=== PATIENT | male | born 1990 | race Caucasian/White ===

== ENCOUNTER 2017-02-25 14:13 | Emergency (ER) | payer SELFPAY ==
[2017-02-25] MEDS ORDERED: LORazepam 2 MG/ML SDV IVPUSH ONE (14:15)
[2017-02-25] MEDS ORDERED: Dextrose 5%-0.9% NaCl 1,000 ML IV SCH (14:15)
[2017-02-25] MEDS ORDERED: Thiamine 100 MG in Sodium Chloride 0.9% 100 ML IV ONE (14:17)
[2017-02-25 14:20] VITALS: BP 124/95
--- NOTE | 2017-02-25 14:20 | EDM.PDOCBH ---
ED HPI GENERAL MEDICAL PROBLEM - General Chief Complaint: Drug or Alcohol Abuse Stated Complaint: [facility] Time Seen by Provider: 02/25/17 14:15 Source of Information: Reports: Patient History Limitations: Reports: Other (very anxious. ) - History of Present Illness INITIAL COMMENTS - FREE TEXT/NARRATIVE: 27-year-old male presents to the ED per ambulance. It's unclear who called the embolus. Apparently he has intractable nausea and vomiting and this is the major reason that he called. By history he is going through alcohol withdrawal. Patient drinks alcohol any kind to excess on a whenever he it's available. He states he's been drinking [employer] rum quite heavily the last 3 days. Last drink was about 8 hours ago. He continues to have emesis and dry heaves without any blood. Stools tend to be loose. He denies any blood. Does have some upper epigastric abdominal pain. Denies any falls or recent injuries although I see blood over his right eyebrow. He can't explain how this occurred. Extremely apprehensive and anxious. He states he has an underlying anxiety disorder with panic disorder. He has not been using medications for this. Onset: Today, Gradual (Gradually worsening symptoms over the last 8 hours.) Onset Date: 02/25/17 Onset Time: 02:00 Duration: Hour(s): Location: Reports: Generalized (Feels shaky restless agitated and anxious. States he started vomiting 3 hours ago and can't quit.) Quality: Reports: Same as Previous Episode Severity: Severe Improves with: Reports: None Worsens with: Reports: None Context: Reports: Other (Feels restless agitated and very anxious since he has not had any alcohol for 8-12 hours.). Denies: Activity, Exercise, Lifting, Sick Contact, Trauma Associated Symptoms: Reports: Loss of Appetite, Nausea/Vomiting. 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 TECHNICIAN: Reports: Other (see below) (None.) - Related Data Allergies Allergy/AdvReac Type Severity Reaction Status Date / Time No Known Allergies Allergy Verified 02/25/17 14:20 Home Meds: Home Meds LORazepam [Ativan] 1 mg PO Q6H PRN #10 tablet 02/25/17 [Rx] Past Medical History - Past Health History Medical/Surgical History: Denies Medical/Surgical History Psychiatric History: Reports: Addiction Social & Family History - Tobacco Use Smoking Status *Q: Current Every Day Smoker Years of Tobacco use: 0 Packs/Tins Daily: 0 Second Hand Smoke Exposure: No - Alcohol Use Days Per Week of Alcohol Use: 7 Number of Drinks Per Day: 10 Total Drinks Per Week: 70 - Recreational Drug Use Recreational Drug Use: No Drug Use in Last 12 Months: Yes - Living Situation & Occupation Living situation: Reports: Single Occupation: Unemployed ED ROS GENERAL - Review of Systems Review Of Systems: See Below Constitutional: Reports: Chills, Malaise, Weakness, Decreased Appetite. Denies : Fever, Fatigue, Weight Loss HEENT: Reports: No Symptoms Respiratory: Reports: Shortness of Breath Cardiovascular: Reports: Chest Pain. Denies: Blood Pressure Problem, Claudication, Dyspnea on Exertion, Edema, Lightheadedness, Orthopnea Endocrine: Reports: Fatigue GI/Abdominal: Reports: Abdominal Pain, Diarrhea (Stools are always loose.), Nausea (Mostly in the epigastrium.), Vomiting (No hematemesis.). Denies: Constipation, Hematemesis : Reports: Frequency Musculoskeletal: Reports: No Symptoms Skin: Reports: No Symptoms Neurological: Reports: No Symptoms ED EXAM, BEHAVIORAL HEALTH - Physical Exam Exam: See Below Exam Limited By: No Limitations General Appearance: Alert, Anxious (Very anxious agitated.), Moderate Distress Eye Exam: Bilateral Eye: Nystagmus (Mild on lateral gaze bilaterally) Throat/Mouth: Other (Tongue is dry) Head: Atraumatic, Normocephalic ( and coated.) Neck: Normal Inspection, Supple, Non-Tender, Full Range of Motion. No: Lymphadenopathy (L), Lymphadenopathy (R) Respiratory/Chest: Lungs Clear, Normal Breath Sounds, Respiratory Distress ( Mild tachypnea.). No: Crackles, Rales, Rhonchi, Wheezing Cardiovascular: Normal Peripheral Pulses, No Murmur, No Rub (Tachycardic at rest 1 26/m), Tachycardia GI/Abdominal: Normal Bowel Sounds, Soft, Non-Tender, No Organomegaly, Tender ( Mild tenderness in the epigastrium.) Extremities: Normal Inspection, Normal Range of Motion, Non-Tender, No Pedal Edema Neurological: Alert, CN II-XII Intact, Oriented x 3, Inattentive. No: Dysarthria Psychiatric: Restless, Agitated. No: Disoriented, Inattentive, Non- Communicative, Poor Eye Contact, Uncooperative, Rastafarian Delusions, Suicidal Plan, Tangential Thoughts, Auditory Hallucinations, Visual Hallucinations, Grandiose Thoughts, Pressured Speech Skin Exam: Warm, Dry, Intact, Normal color, No rash, Other COURSE, BEHAVIORAL HEALTH COMP - Course Vital Signs: Last Vital Signs Temp 36.7 C 02/25/17 14:15 Pulse 102 H 02/25/17 14:15 Resp 20 02/25/17 14:15 BP 124/95 H 02/25/17 14:15 Pulse Ox 100 02/25/17 14:15 27-year-old male who is known to be an alcoholic presents to the ED essentially with acute alcohol withdrawal. He's been drinking [employer] rum quite heavily the last 3 days but lately has not had access to alcohol. Usually drinks anything that he can get his hands on. He also uses street drugs and particularly marijuana. He has a generalized anxiety disorder and panic disorder by history. He came to the hospital primarily because of intractable nausea and vomiting 3 hours. No hematemesis noted. Benign abdominal examination. He is alert and oriented. Does not appear to be intoxicated. Plan IV D5 normal saline at open. Ativan 2 mg IV as he is extremely restless and agitated. Reglan 7.5 mg IV to arrest vomiting. Routine labs to be done to include a serum lipase and coags. Blood alcohol and urine drug screen to be done as well. Orders, Labs, Meds: Active Orders 24 hr Category Date Time Status Dextrose 5%-0.9% NaCl [Dextrose 5%-Normal Saline] 1,000 Med 02/25/17 14:15 Active ml IV ASDIRECTED Medication Orders Dextrose/Sodium Chloride (Dextrose 5%-Normal Saline) 1,000 mls @ 500 mls/hr IV ASDIRECTED EFFIE Last Admin: 02/25/17 14:32 Dose: 500 mls/hr Laboratory Tests 02/25/17 02/25/17 02/25/17 Range/Units 14:30 14:30 14:30 WBC 4.78 (4.23-9.07) K/mm3 RBC 4.33 L (4.63-6.08) M/mm3 Hgb 14.1 (13.7-17.5) gm/L Hct 42.6 (40.1-51.0) % MCV 98.4 H (79.0-92.2) fl MCH 32.6 H (25.7-32.2) pg MCHC 33.1 (32.2-35.5) g/dl RDW Std Deviation 52.9 H (35.1-43.9) fL Plt Count 275 (163-337) K/mm3 MPV 9.6 (9.4-12.3) fl Neutrophils % (Manual) 47 (40-60) % Band Neutrophils % 0 (0-10) % Lymphocytes % (Manual) 42 H (20-40) % Atypical Lymphs % 0 % Monocytes % (Manual) 7 (2-10) % Eosinophils % (Manual) 0 L (0.8-7.0) % Basophils % (Manual) 4 H (0.2-1.2) Platelet Estimate Adequate Plt Morphology Comment Normal RBC Morph Comment Normal PT 10.3 (8.0-13.0) SECONDS INR 0.95 APTT 29 (22-36) SECONDS Sodium 144 (136-145) mEq/L Potassium 3.5 (3.5-5.1) mEq/L Chloride 105 (98-107) mEq/L Carbon Dioxide 28 (21-32) mEq/L Anion Gap 14.5 (5-15) BUN 6 L (7-18) mg/dL Creatinine 0.7 (0.7-1.3) mg/dL Est Cr Clr Drug Dosing TNP Estimated GFR (MDRD) > 60 (>60) mL/min BUN/Creatinine Ratio 8.6 L (14-18) Glucose 93 (74-106) mg/dL Calcium 8.6 (8.5-10.1) mg/dL Magnesium 1.8 (1.8-2.4) mg/dl Total Bilirubin 0.4 (0.2-1.0) mg/dL AST 88 H (15-37) U/L ALT 105 H (16-63) U/L Alkaline Phosphatase 128 H (46-116) U/L C-Reactive Protein < 0.2 (<1.0) mg/dL Total Protein 7.4 (6.4-8.2) g/dl Albumin 4.0 (3.4-5.0) g/dl Globulin 3.4 gm/dL Albumin/Globulin Ratio 1.2 (1-2) Lipase 87 (73-393) U/L Urine Opiates Screen (NEGATIVE) Ur Buprenorphine Scrn (NEGATIVE) Ur Oxycodone Screen (NEGATIVE) Urine Methadone Screen (NEGATIVE) Ur Propoxyphene Screen (NEGATIVE) Ur Barbiturates Screen (NEGATIVE) Ur Tricyclics Screen (NEGATIVE) Ur Phencyclidine Scrn (NEGATIVE) Ur Amphetamine Screen (NEGATIVE) U Methamphetamines Scrn (NEGATIVE) U Benzodiazepines Scrn (NEGATIVE) U Cocaine Metab Screen (NEGATIVE) U Marijuana (THC) Screen (NEGATIVE) Ethyl Alcohol 0.25 (0.00) gm% 02/25/17 Range/Units 18:50 WBC (4.23-9.07) K/mm3 RBC (4.63-6.08) M/mm3 Hgb (13.7-17.5) gm/L Hct (40.1-51.0) % MCV (79.0-92.2) fl MCH (25.7-32.2) pg MCHC (32.2-35.5) g/dl RDW Std Deviation (35.1-43.9) fL Plt Count (163-337) K/mm3 MPV (9.4-12.3) fl Neutrophils % (Manual) (40-60) % Band Neutrophils % (0-10) % Lymphocytes % (Manual) (20-40) % Atypical Lymphs % % Monocytes % (Manual) (2-10) % Eosinophils % (Manual) (0.8-7.0) % Basophils % (Manual) (0.2-1.2) Platelet Estimate Plt Morphology Comment RBC Morph Comment PT (8.0-13.0) SECONDS INR APTT (22-36) SECONDS Sodium (136-145) mEq/L Potassium (3.5-5.1) mEq/L Chloride (98-107) mEq/L Carbon Dioxide (21-32) mEq/L Anion Gap (5-15) BUN (7-18) mg/dL Creatinine (0.7-1.3) mg/dL Est Cr Clr Drug Dosing Estimated GFR (MDRD) (>60) mL/min BUN/Creatinine Ratio (14-18) Glucose (74-106) mg/dL Calcium (8.5-10.1) mg/dL Magnesium (1.8-2.4) mg/dl Total Bilirubin (0.2-1.0) mg/dL AST (15-37) U/L ALT (16-63) U/L Alkaline Phosphatase (46-116) U/L C-Reactive Protein (<1.0) mg/dL Total Protein (6.4-8.2) g/dl Albumin (3.4-5.0) g/dl Globulin gm/dL Albumin/Globulin Ratio (1-2) Lipase (73-393) U/L Urine Opiates Screen Negative (NEGATIVE) Ur Buprenorphine Scrn Negative (NEGATIVE) Ur Oxycodone Screen Negative (NEGATIVE) Urine Methadone Screen Negative (NEGATIVE) Ur Propoxyphene Screen Negative (NEGATIVE) Ur Barbiturates Screen Negative (NEGATIVE) Ur Tricyclics Screen Negative (NEGATIVE) Ur Phencyclidine Scrn Negative (NEGATIVE) Ur Amphetamine Screen Negative (NEGATIVE) U Methamphetamines Scrn Negative (NEGATIVE) U Benzodiazepines Scrn Presumptive positive H (NEGATIVE) U Cocaine Metab Screen Negative (NEGATIVE) U Marijuana (THC) Screen Presumptive positive H (NEGATIVE) Ethyl Alcohol (0.00) gm% Medications Generic Name Dose Route Start Last Admin Trade Name Freq PRN Reason Stop Dose Admin Dextrose/Sodium Chloride 1,000 mls @ 500 mls/hr 02/25/17 14:15 02/25/17 14:32 Dextrose 5%-Normal Saline IV 500 mls/hr ASDIRECTED EFFIE Administration Discontinued Medications Generic Name Dose Route Start Last Admin Trade Name Freq PRN Reason Stop Dose Admin Thiamine HCl 100 mg/ Sodium 101 mls @ 202 mls/hr 02/25/17 14:17 02/25/17 14: 48 Chloride IV 02/25/17 14:18 202 mls/hr ONETIME ONE Administration Lorazepam 2 mg 02/25/17 14:15 02/25/17 14:33 Ativan IVPUSH 02/25/17 14:16 2 mg ONETIME ONE Administration Lorazepam 2 mg 02/25/17 18:59 Ativan PO 02/25/17 19:00 ONETIME ONE Metoclopramide HCl 7.5 mg 02/25/17 14:24 02/25/17 14:47 Reglan IVPUSH 02/25/17 14:25 7.5 mg ONETIME ONE Administration Re-Assessment/Re-Exam: White count is 4.78 with 47% neutrophils and no bands. Hemoglobin is 14.1. Hematocrit is 42.6. Platelets 275,000. His MCV is mildly elevated at 98.4. PT is 10.3 with a normal INR of 0.95. PTT is 29. Sodium 144 potassium is 3.5. Chloride 105 bicarbonate is 28. And a gap is 14.5 BUN is 6. Glucose is 93 calcium 8.6. Magnesium is 1.8. Bilirubin 0.4. AST elevated at 88. ALT elevated at 105. Alk phosphatase 128. C-reactive protein is less than 0.2. Lipase normal at 87. Blood alcohol is currently 0.25 g percent. Patient has been asleep basically since he received IV medications. Labs certainly indicate is not going through withdrawal at 0.25 g percent. He was suffering an acute anxiety attack. Re-Assessment/Re-Exam Date: 02/25/17 (18:20 patient remains fast asleep. He has completed a liter of IV fluids. Plan will be to discharge him home once she awakens and recovers from IV meds.) Re-Assessment/Re-Exam Time: 18:55 (Patient awoke and feels quite well at this time. We'll give him by T to make sure that his stomach can handle food. Inés as well. Will be to discharge him home on Ativan 1 mg strength 2 tablets from the ED to be use one every 4-6 hours. 4 relieve acute anxiety reaction or alcohol withdrawal. Also given a prescription for 10 further 1 mg tablets to be used on a when necessary basis for acute anxiety reaction. Advised him to follow-up with personal care physician to see about starting medication such as citalopram 40 mg once daily which may bring his anxiety under control long-term and is essentially safe to use even if he continues to abuse alcohol.) Medical Clearance: 02/25/17 19:19 urine drug screen was positive for marijuana and presumptive benzodiazepines which we gave him. He'll be discharged to home Departure - Departure Time of Disposition: 19:21 Disposition: Home, Self-Care 01 Condition: Fair Clinical Impression: Generalized anxiety disorder with panic attacks, Alcohol abuse - Discharge Information Prescriptions: LORazepam [Ativan] 1 mg PO Q6H PRN #10 tablet PRN Reason: Panic attack Instructions: Alcohol Intoxication, [id number], Panic Attacks Additional Instructions: Evaluation in the emergency room tonight in regards to acute onset of severe anxiety attack. You had expressed some concerns that you might be withdrawing from alcohol blood sugar blood alcohol content is still 0.25 g percent 3 times the legal limit. You're treated with intravenous medications to stop nausea or vomiting and Ativan 2 mg to stop acute anxiety reaction. He received a liter of IV fluids to provide rehydration while in the department. Strongly suggest trying to abstain from alcohol use. He was sent home with 2 tablets of Ativan 1 mg strength from the department that can be used 1 every 4-6 hours as needed for anxiety relief. A prescription for 10 more tablets was also written for which you can fill tomorrow it in the pharmacy between the hours of 1 and 3 as they will be open on the holiday time. Otherwise you'll have to wait until Sunday to fill them. Suggest follow-up with your personal physician to discuss need for daily medication such as citalopram 40 mg once daily to try and bring anxiety symptoms under control long-term. This medication is safe to take long- term and is non-addicting. - My Orders Last 24 Hours: My Active Orders 02/25/17 14:15 Dextrose 5%-0.9% NaCl [Dextrose 5%-Normal Saline] 1,000 ml IV ASDIRECTED - Assessment/Plan Last 24 Hours: My Active Orders 02/25/17 14:15 Dextrose 5%-0.9% NaCl [Dextrose 5%-Normal Saline] 1,000 ml IV ASDIRECTED
[2017-02-25] MEDS ORDERED: Metoclopramide 10 MG/2 ML SDV IVPUSH ONE (14:24)
[2017-02-25] MEDS ORDERED: LORazepam 1 MG Tab PO ONE (18:59)
== END 2017-02-25 19:27 | disposition home or self-care (01) ==
LOC: JD.ED 14:13
DX: F41.0 Panic disorder [episodic paroxysmal anxiety] (principal); F10.129 Alcohol abuse with intoxication, unspecified; F17.200 Nicotine dependence, unspecified, uncomplicated; Y90.1 Blood alcohol level of 20-39 mg/100 ml
CPT/HCPCS: 36415; 80053; 80306; 83690; 83735; 85025; 85610; 85730; 86140; 96361; 96365; 96375; 99285; A9270; G0480; J2060; J2765; J3411; J7030; J7042; 99284

== ENCOUNTER 2017-03-31 21:27 | Emergency (ER) | payer MEDICAID ==
--- NOTE | 2017-03-31 22:01 | EDM.PDOCBH ---
ED HPI GENERAL MEDICAL PROBLEM - General Chief Complaint: Behavioral/Psych Stated Complaint: [facility] Time Seen by Provider: 03/31/17 21:45 Source of Information: Reports: Patient History Limitations: Reports: No Limitations - History of Present Illness INITIAL COMMENTS - FREE TEXT/NARRATIVE: This is a 27-year-old male. He was picked up by the police because he was outside walking. Apparently he is homeless and spends his time in the trees behind [place]. Tonight however he was walking on the road and since it is very cold outside the police picked him up and brought him to the ER. I understand that he does not want to be seen or evaluated by anyone since it will cost him money and he doesn't have any money. I spoke to him personally and he says his mother is going to come and get him so he have a warm place to stay but he does not want to be seen by anyone or have any blood drawn by anyone or evaluated by anyone. I asked him several times about this and he insists he doesn't need anything. I did offer him a sandwich and a drink that would be free but he does not want it. - Related Data Allergies Allergy/AdvReac Type Severity Reaction Status Date / Time No Known Allergies Allergy Verified 02/25/17 14:20 Home Meds: Home Meds LORazepam [Ativan] 1 mg PO Q6H PRN #10 tablet 02/25/17 [Rx] Past Medical History - Past Health History Medical/Surgical History: Denies Medical/Surgical History Psychiatric History: Reports: Addiction Social & Family History - Tobacco Use Smoking Status *Q: Current Every Day Smoker Years of Tobacco use: 0 Packs/Tins Daily: 0 Second Hand Smoke Exposure: No - Alcohol Use Days Per Week of Alcohol Use: 7 Number of Drinks Per Day: 10 Total Drinks Per Week: 70 - Recreational Drug Use Recreational Drug Use: No Drug Use in Last 12 Months: Yes - Living Situation & Occupation Living situation: Reports: Single Occupation: Unemployed ED ROS GENERAL - Review of Systems Review Of Systems: Unable To Obtain (He does not want to answer any questions. He is waiting for his mother to come and pick him up so he can have a warm place to sleep tonight.) ED EXAM, BEHAVIORAL HEALTH - Physical Exam Exam: Not Obtained Text/Narrative:: Condition refused to having a physical exam done. He has no significant complaints and does not want to be seen. COURSE, BEHAVIORAL HEALTH COMP - Course Medical Clearance: 03/31/17 22:01 Patient is alert and talking does not appear to be in distress. He does not want to be seen does not want have any evaluation or blood work. He wants his mother to come and pick him up so he can sleep in a warm place tonight. We have contacted the mother and she will be here to get him. 03/31/17 22:48 Patient is been fine without any complaints. His mother came and picked him up and took him from the ER. Departure - Departure Time of Disposition: 22:48 Disposition: Home, Self-Care 01 Condition: Fair Clinical Impression: Exposure to environmental cold Qualifiers: Encounter type: initial encounter Qualified Code(s): T69.9XXA - Effect of reduced temperature, unspecified, initial encounter - Discharge Information Referrals: PCP,None [Primary Care Provider] - Forms: ED Department Discharge Additional Instructions: If in the future you have any problems return to the ER for evaluation, go home with your mother so you will have a warm place to sleep and please stay out of the cold over the next few days.
== END 2017-03-31 22:40 | disposition home or self-care (01) ==
LOC: JD.ED 21:27
DX: Z53.8 Procedure and treatment not carried out for other reasons (principal); T69.9XXA Effect of reduced temperature, unspecified, initial encounter

== ENCOUNTER 2018-06-14 12:04 | Emergency (ER) | payer MEDICAID ==
[2018-06-14] MEDS ORDERED: LORazepam 2 MG/ML SDV IM ONE (12:35)
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
[2018-06-14 13:01] VITALS: BP 129/88
--- NOTE | 2018-06-14 13:28 | CT ---
Head CT Technique: Multiple axial sections through the brain were obtained. Intravenous contrast was not utilized. Comparison: No prior intracranial imaging is available. Findings: Ventricles along with basal cisterns and sulci over the convexities are within normal limits for the patient's age. No abnormal parenchymal densities are seen. No evidence of intracranial hemorrhage. No midline shift or mass effect is seen. Bone window settings were reviewed which shows mild mucosal thickening within the ethmoid and frontal sinuses as well as right maxillary sinus. No acute calvarial abnormality is seen. Impression: 1. Minimal sinus findings which are felt to be incidental. 2. Nothing acute is seen on noncontrast head CT exam. No acute skull fracture is seen. Diagnostic code #1
[2018-06-14 13:31] LABS: ACETAMINOPHEN 0 ug/mL (10-30)
[2018-06-14 14:41] LABS: C. TRACHOMATIS BY PCR NOT DETECTED; N. GONORRHOEAE BY PCR NOT DETECTED
== END 2018-06-14 15:40 | disposition home or self-care (01) ==
LOC: JD.ED 12:04
DX: S09.90XA Unspecified injury of head, initial encounter (principal); F41.0 Panic disorder [episodic paroxysmal anxiety]; S40.022A Contusion of left upper arm, initial encounter; S40.021A Contusion of right upper arm, initial encounter; F17.210 Nicotine dependence, cigarettes, uncomplicated; W18.00XA Striking against unspecified object with subsequent fall, initial encounter; V00.131A Fall from skateboard, initial encounter; Y93.9 Activity, unspecified
CPT/HCPCS: 36415; 70450; 80053; 80306; 81001; 85025; 87491; 87591; 96372; 99284; G0480; J2060; 99283

== ENCOUNTER 2018-10-20 15:46 | Emergency (ER) | payer SELFPAY ==
[2018-10-20 16:31] VITALS: BP 135/92
[2018-10-20] MEDS ORDERED: Thiamine 100 MG Tab PO ONE (17:28)
[2018-10-20] MEDS ORDERED: Sodium Chloride 0.9% 1,000 ML IV ONE (17:28)
[2018-10-20] MEDS ORDERED: Sodium Chloride 0.9% 10 ML Syringe FLUSH PRN (17:28)
[2018-10-20] MEDS ORDERED: Ondansetron 4 MG/2 ML SDV IVPUSH ONE (17:28)
[2018-10-20] MEDS ORDERED: LORazepam 2 MG/ML SDV IVPUSH ONE (17:34)
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
== END 2018-10-20 19:48 | disposition other institution (70) ==
LOC: JD.ED 15:46
DX: F10.20 Alcohol dependence, uncomplicated (principal); Y90.0 Blood alcohol level of less than 20 mg/100 ml; F17.210 Nicotine dependence, cigarettes, uncomplicated
CPT/HCPCS: 36415; 96361; 96374; 96375; 99284; A9270; G0480; J2060; J2405; J7040

== ENCOUNTER 2018-11-12 11:59 | Emergency (ER) | payer SELFPAY ==
[2018-11-12 12:05] VITALS: BP 115/71; PULSE 84
[2018-11-12] MEDS ORDERED: Ondansetron 4 MG/2 ML SDV IVPUSH ONE (13:06)
[2018-11-12] MEDS ORDERED: Sodium Chloride 0.9% 1,000 ML IV ONE (13:06)
[2018-11-12] MEDS ORDERED: LORazepam 2 MG/ML SDV IVPUSH STA (13:06)
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
--- NOTE | 2018-11-12 14:09 | CR ---
Chest: Two views of the chest were obtained. Comparison: Prior chest x-ray of 10/09/18. Heart size and mediastinum are within normal limits. Lungs are clear. Bony structures are unremarkable. Impression: 1. No acute intrathoracic process is seen. Diagnostic code #1
== END 2018-11-12 15:18 | disposition home or self-care (01) ==
LOC: JD.ED 11:59
DX: F10.20 Alcohol dependence, uncomplicated (principal); Y90.0 Blood alcohol level of less than 20 mg/100 ml; F50.81 Binge eating disorder; F41.9 Anxiety disorder, unspecified; F17.210 Nicotine dependence, cigarettes, uncomplicated; Z79.899 Other long term (current) drug therapy
CPT/HCPCS: 36415; 71046; 80053; 80306; 80320; 83690; 83735; 85025; 96361; 96374; 96375; 99284; J2060; J2405; J7040; G0480

== ENCOUNTER 2018-11-17 10:32 | Emergency (ER) | payer SELFPAY ==
[2018-11-17 10:41] VITALS: BP 125/83; PULSE 113
[2018-11-17] MEDS ORDERED: Sodium Chloride 0.9% 10 ML Syringe FLUSH PRN (10:51)
[2018-11-17] MEDS ORDERED: Ondansetron 4 MG/2 ML SDV IVPUSH ONE (10:51)
[2018-11-17] MEDS ORDERED: LORazepam 2 MG/ML SDV IVPUSH ONE (10:53)
[2018-11-17] MEDS ORDERED: Sodium Chloride 0.9% 1,000 ML IV SCH (11:00)
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
== END 2018-11-17 14:15 | disposition home or self-care (01) ==
LOC: JD.ED 10:32
DX: F10.230 Alcohol dependence with withdrawal, uncomplicated (principal); Y90.0 Blood alcohol level of less than 20 mg/100 ml; F50.81 Binge eating disorder; F41.9 Anxiety disorder, unspecified; F17.210 Nicotine dependence, cigarettes, uncomplicated; Z79.899 Other long term (current) drug therapy
CPT/HCPCS: 36415; 80053; 80306; 80320; 83735; 85025; 87449; 96361; 96374; 96375; 99285; J2060; J2405; J7040; 99284; G0433; G0480

== ENCOUNTER 2018-11-19 18:26 | Emergency (ER) | payer MEDICAID ==
[2018-11-19 18:35] VITALS: BP 125/82; PULSE 58
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
[2018-11-19] MEDS ORDERED: Ondansetron 4 MG Tab.DIS PO ONE (20:07)
[2018-11-19] MEDS ORDERED: LORazepam 1 MG Tab PO ONE (20:07)
== END 2018-11-19 21:13 | disposition home or self-care (01) ==
LOC: JD.ED 18:26
DX: F10.239 Alcohol dependence with withdrawal, unspecified (principal); F41.9 Anxiety disorder, unspecified; Z79.899 Other long term (current) drug therapy
CPT/HCPCS: 99285; A9270; 99283

== ENCOUNTER 2018-12-12 12:20 | Emergency (ER) | payer SELFPAY ==
[2018-12-12] MEDS ORDERED: LORazepam 2 MG/ML SDV IVPUSH ONE (12:51)
[2018-12-12] MEDS ORDERED: Thiamine 200 MG/2 ML MDV IVPUSH ONE (12:53)
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
[2018-12-12] MEDS ORDERED: Metoclopramide 10 MG/2 ML SDV IVPUSH ONE (12:57)
[2018-12-12] MEDS ORDERED: Dextrose 5%-0.9% NaCl 1,000 ML IV SCH (13:00)
[2018-12-12 14:44] VITALS: BP 99/60; PULSE 100
== END 2018-12-12 14:40 | disposition home or self-care (01) ==
LOC: JD.ED 12:20
DX: F41.0 Panic disorder [episodic paroxysmal anxiety] (principal); F10.10 Alcohol abuse, uncomplicated; F32.9 Major depressive disorder, single episode, unspecified; Z79.899 Other long term (current) drug therapy
CPT/HCPCS: 36415; 80053; 80320; 82553; 83690; 83735; 85025; 85610; 93005; 96361; 96374; 96375; 99285; J2060; J2765; J3411; J7042; 93010; 99284; G0480

== ENCOUNTER 2018-12-18 11:25 | Emergency (ER) | payer SELFPAY ==
[2018-12-18 11:32] VITALS: PULSE 93
[2018-12-18] MEDS ORDERED: LORazepam 1 MG Tab PO ONE (11:48)
[2018-12-18] MEDS ORDERED: Ondansetron 4 MG Tab.DIS PO ONE (11:49)
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
[2018-12-18] MEDS ORDERED: Acetaminophen 325 MG Tab PO ONE (12:17)
[2018-12-18 12:51] VITALS: BP 125/75
== END 2018-12-18 12:23 | disposition home or self-care (01) ==
LOC: JD.ED 11:25
DX: F41.9 Anxiety disorder, unspecified (principal); R11.2 Nausea with vomiting, unspecified; F17.210 Nicotine dependence, cigarettes, uncomplicated
CPT/HCPCS: 99283; A9270

== ENCOUNTER 2018-12-23 05:38 | Emergency (ER) | payer SELFPAY ==
[2018-12-23 05:43] VITALS: BP 140/94; PULSE 94
[2018-12-23] MEDS: Ondansetron 4 MG/2 ML SDV IVPUSH ONE (08:10)
[2018-12-23] MEDS: Dextrose 5%-Lactated Ringers 1,000 ML IV SCH ×2 (08:10→10:23)
[2018-12-23] MEDS: LORazepam 2 MG/ML SDV IVPUSH ONE (08:12)
[2018-12-23] MEDS: Sodium Chloride 0.9% 10 ML Syringe FLUSH PRN (08:15)
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
[2018-12-23] MEDS: LORazepam 1 MG Tab PO ONE (11:54)
== END 2018-12-23 12:00 | disposition home or self-care (01) ==
LOC: JD.ED 05:38
DX: F10.229 Alcohol dependence with intoxication, unspecified (principal); F41.9 Anxiety disorder, unspecified; F17.210 Nicotine dependence, cigarettes, uncomplicated; Y90.6 Blood alcohol level of 120-199 mg/100 ml
CPT/HCPCS: 36415; 80053; 80320; 83690; 85025; 96361; 96374; 96375; 99285; A9270; J2060; J2405; J7042; 99283; G0480

== ENCOUNTER 2018-12-29 13:03 | Emergency (ER) | payer SELFPAY ==
[2018-12-29 13:17] VITALS: BP 120/80; PULSE 92
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
== END 2018-12-29 15:00 | disposition home or self-care (01) ==
LOC: JD.ED 13:03
DX: R00.2 Palpitations (principal); F10.10 Alcohol abuse, uncomplicated; F14.10 Cocaine abuse, uncomplicated; F17.210 Nicotine dependence, cigarettes, uncomplicated; F41.9 Anxiety disorder, unspecified; Z79.899 Other long term (current) drug therapy
CPT/HCPCS: 93005; 93010; 99283; 99284-25

== ENCOUNTER 2019-01-02 18:25 | Emergency (ER) | payer SELFPAY ==
[2019-01-02 18:43] VITALS: BP 135/72; PULSE 90
[2019-01-02] MEDS ORDERED: Ondansetron 4 MG Tab.DIS PO ONE (19:23)
[2019-01-02] MEDS ORDERED: LORazepam 1 MG Tab PO ONE (19:23)
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
== END 2019-01-02 20:29 | disposition home or self-care (01) ==
LOC: JD.ED 18:25
DX: F10.230 Alcohol dependence with withdrawal, uncomplicated (principal); F41.9 Anxiety disorder, unspecified; F17.210 Nicotine dependence, cigarettes, uncomplicated; Z79.899 Other long term (current) drug therapy
CPT/HCPCS: 99284; A9270-GY

== ENCOUNTER 2019-08-08 00:03 | Emergency (ER) | payer MEDICAID, OTHER ==
[2019-08-08 00:12] VITALS: BP 121/75; PULSE 102
[2019-08-08] MEDS ORDERED: Sodium Chloride 0.9% 1,000 ML IV ONE (00:28)
[2019-08-08 01:02] LABS: ACETAMINOPHEN 0 ug/mL (10-30)
[2019-08-08] MEDS ORDERED: LORazepam 2 MG/ML SDV IVPUSH ONE (01:47)
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
== END 2019-08-08 03:20 ==
LOC: JD.ED 00:03
DX: F10.129 Alcohol abuse with intoxication, unspecified (principal); Y90.0 Blood alcohol level of less than 20 mg/100 ml; F41.9 Anxiety disorder, unspecified; F17.210 Nicotine dependence, cigarettes, uncomplicated; Z79.899 Other long term (current) drug therapy
CPT/HCPCS: 36415; 80053; 80306; 80307; 81001; 85007; 85027; 93005; 96361; 96374; 99285; J2060; J7030; 93010; 99284

== ENCOUNTER 2019-08-18 07:36 | Emergency (ER) | payer MEDICAID ==
[2019-08-18 08:14] VITALS: BP 128/87; PULSE 104
[2019-08-18] MEDS ORDERED: Thiamine 200 MG/2 ML MDV IVPUSH ONE (08:26)
[2019-08-18] MEDS ORDERED: Metoclopramide 10 MG/2 ML SDV IVPUSH ONE (08:28)
[2019-08-18] MEDS ORDERED: LORazepam 2 MG/ML SDV IVPUSH ONE (08:28)
[2019-08-18] MEDS ORDERED: Dextrose 5%-0.9% NaCl 1,000 ML IV SCH (08:30)
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
== END 2019-08-18 12:44 ==
LOC: JD.ED 07:36
DX: F10.230 Alcohol dependence with withdrawal, uncomplicated (principal); F41.1 Generalized anxiety disorder; R56.9 Unspecified convulsions; Z79.899 Other long term (current) drug therapy
CPT/HCPCS: 36415; 80053; 80306; 80307; 81001; 83735; 85025; 86140; 96374; 96375; 99285; J2060; J2765; J3411; J7042; 99284

== ENCOUNTER 2019-08-23 18:37 | Emergency (ER) | payer MEDICAID ==
[2019-08-23 19:20] VITALS: BP 124/72; PULSE 90
[2019-08-23] MEDS ORDERED: Ondansetron 4 MG/2 ML SDV IVPUSH ONE (19:44)
[2019-08-23] MEDS ORDERED: Lactated Ringers 1,000 ML IV SCH (19:45)
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
[2019-08-23] MEDS ORDERED: LORazepam 1 MG Tab PO ONE (22:39)
== END 2019-08-23 22:46 | disposition home or self-care (01) ==
LOC: JD.ED 18:37
DX: F10.120 Alcohol abuse with intoxication, uncomplicated (principal); F50.81 Binge eating disorder; F41.9 Anxiety disorder, unspecified; F17.210 Nicotine dependence, cigarettes, uncomplicated; Z79.899 Other long term (current) drug therapy
CPT/HCPCS: 36415; 80053; 80306; 80307; 81001; 83690; 85025; 96361; 96374; 99284; A9270; J2405; J7120

== ENCOUNTER 2019-08-24 16:16 | Emergency (ER) | payer MEDICAID ==
[2019-08-24 16:33] VITALS: BP 135/75
[2019-08-24] MEDS ORDERED: Metoclopramide 10 MG/2 ML SDV IVPUSH ONE (17:01)
[2019-08-24] MEDS ORDERED: LORazepam 2 MG/ML SDV IV PRN (17:02)
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
[2019-08-24] MEDS ORDERED: Dextrose 5%-Lactated Ringers 1,000 ML IV SCH (17:15)
[2019-08-24 18:26] VITALS: PULSE 79
== END 2019-08-24 18:52 | disposition home or self-care (01) ==
LOC: JD.ED 16:16
DX: F10.231 Alcohol dependence with withdrawal delirium (principal); F41.9 Anxiety disorder, unspecified; Z79.899 Other long term (current) drug therapy
CPT/HCPCS: 36415; 80053; 80307; 83690; 83735; 96361; 96374; 96375; 99284; J2060; J2765; J7121; 99283

== ENCOUNTER 2019-09-25 16:31 | Emergency (ER) | payer MEDICAID ==
[2019-09-25 17:15] VITALS: PULSE 82
[2019-09-25] MEDS ORDERED: Ondansetron 4 MG Tab.DIS PO ONE (17:33)
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
[2019-09-25] MEDS ORDERED: Acetaminophen 325 MG Tab PO ONE (18:13)
[2019-09-25 19:14] VITALS: BP 120/68
== END 2019-09-25 18:38 | disposition home or self-care (01) ==
LOC: JD.ED 16:31
DX: F10.230 Alcohol dependence with withdrawal, uncomplicated (principal); F17.210 Nicotine dependence, cigarettes, uncomplicated; Y90.8 Blood alcohol level of 240 mg/100 ml or more
CPT/HCPCS: 36415; 80053; 80306; 80307; 81001; 83735; 99284; A9270; 99283

== ENCOUNTER 2019-10-20 17:22 | Emergency (ER) | payer MEDICAID ==
[2019-10-20 17:38] VITALS: BP 122/66; PULSE 82
[2019-10-20] MEDS ORDERED: Ondansetron 4 MG Tab.DIS PO ONE (17:45)
[2019-10-20] MEDS ORDERED: LORazepam 0.5 MG Tab PO ONE (17:45)
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
== END 2019-10-20 19:08 | disposition home or self-care (01) ==
LOC: JD.ED 17:22
DX: F10.10 Alcohol abuse, uncomplicated (principal); F17.210 Nicotine dependence, cigarettes, uncomplicated
CPT/HCPCS: 36415; 80307; 99284; A9270; 99283

== ENCOUNTER 2019-10-27 13:38 | Emergency (ER) | payer MEDICAID ==
[2019-10-27] MEDS ORDERED: LORazepam 1 MG Tab PO ONE (13:56)
[2019-10-27] MEDS ORDERED: Ondansetron 4 MG Tab.DIS PO ONE (13:56)
[2019-10-27] MEDS ORDERED: Acetaminophen 325 MG Tab PO ONE (14:14)
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
[2019-10-27 15:39] VITALS: BP 113/77; PULSE 62
== END 2019-10-27 15:30 | disposition home or self-care (01) ==
LOC: JD.ED 13:38
DX: F41.9 Anxiety disorder, unspecified (principal); F10.10 Alcohol abuse, uncomplicated; F17.210 Nicotine dependence, cigarettes, uncomplicated
CPT/HCPCS: 99284; A9270; 99283

== ENCOUNTER 2019-10-31 11:21 | Emergency (ER) | payer MEDICAID ==
[2019-10-31] MEDS ORDERED: LORazepam 1 MG Tab PO ONE (12:24)
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
[2019-10-31 14:34] VITALS: BP 115/71; PULSE 62
== END 2019-10-31 14:22 | disposition home or self-care (01) ==
LOC: JD.ED 11:21
DX: F41.9 Anxiety disorder, unspecified (principal); F10.10 Alcohol abuse, uncomplicated; F17.210 Nicotine dependence, cigarettes, uncomplicated
CPT/HCPCS: 99283; A9270

== ENCOUNTER 2019-11-08 11:53 | Emergency (ER) | payer MEDICAID ==
[2019-11-08] MEDS ORDERED: Sodium Chloride 0.9% 1,000 ML IV ONE (12:01)
[2019-11-08] MEDS ORDERED: Metoclopramide 10 MG/2 ML SDV IVPUSH ONE (12:01)
[2019-11-08] MEDS ORDERED: Folic Acid 1 MG Tab PO ONE (12:01)
[2019-11-08] MEDS ORDERED: Thiamine 100 MG Tab PO ONE (12:01)
[2019-11-08] MEDS ORDERED: Sodium Chloride 0.9% 10 ML Syringe FLUSH PRN (12:01)
[2019-11-08] MEDS ORDERED: LORazepam 2 MG/ML SDV IVPUSH ONE (12:01)
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
[2019-11-08 14:00] VITALS: BP 105/62; PULSE 86
== END 2019-11-08 13:55 | disposition home or self-care (01) ==
LOC: JD.ED 11:53
DX: F10.180 Alcohol abuse with alcohol-induced anxiety disorder (principal); F17.210 Nicotine dependence, cigarettes, uncomplicated
CPT/HCPCS: 36415; 80053; 80307; 83690; 83735; 85025; 85610; 96361; 96374; 96375; 99284; A9270; J2060; J2765; J7030

== ENCOUNTER 2019-11-22 11:44 | Emergency (ER) | payer MEDICAID ==
[2019-11-22 11:58] VITALS: BP 128/90; PULSE 73
[2019-11-22] MEDS ORDERED: LORazepam 0.5 MG Tab PO ONE (12:15)
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
== END 2019-11-22 13:00 | disposition home or self-care (01) ==
LOC: JD.ED 11:44
DX: F41.9 Anxiety disorder, unspecified (principal); F10.10 Alcohol abuse, uncomplicated; F17.210 Nicotine dependence, cigarettes, uncomplicated
CPT/HCPCS: 99284; A9270; 99283

== ENCOUNTER 2019-11-28 16:27 | Emergency (ER) | payer MEDICAID ==
[2019-11-28] MEDS ORDERED: Ondansetron 4 MG/2 ML SDV IVPUSH ONE (17:41)
[2019-11-28] MEDS ORDERED: LORazepam 2 MG/ML SDV IVPUSH ONE (17:41)
[2019-11-28] MEDS ORDERED: Sodium Chloride 0.9% 10 ML Syringe FLUSH PRN (17:41)
[2019-11-28] MEDS ORDERED: Sodium Chloride 0.9% 1,000 ML IV ONE ×2 (17:41)
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
[2019-11-28] MEDS ORDERED: Atenolol 25 MG Tab PO ONE (20:13)
[2019-11-28] MEDS ORDERED: chlordiazePOXIDE 25 MG Cap PO ONE (20:13)
[2019-11-28 20:25] VITALS: BP 120/64; PULSE 78
== END 2019-11-28 20:29 | disposition home or self-care (01) ==
LOC: JD.ED 16:27
DX: F10.280 Alcohol dependence with alcohol-induced anxiety disorder (principal); F17.210 Nicotine dependence, cigarettes, uncomplicated; Z79.899 Other long term (current) drug therapy; Y90.3 Blood alcohol level of 60-79 mg/100 ml
CPT/HCPCS: 36415; 80053; 80306; 80307; 81001; 83735; 85007; 85027; 96361; 96374; 96375; 99284; A9270; J2060; J2405; J7030

== ENCOUNTER 2019-12-01 12:39 | Emergency (ER) | payer MEDICAID ==
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
[2019-12-01 16:00] VITALS: BP 126/80; PULSE 65
--- NOTE | 2020-01-02 12:52 | CR ---
PROCEDURE INFORMATION: Exam: XR Right Ribs with PA Chest, 3 Views Exam date and time: 12/01/2019 1:14 PM Age: 29 years old Clinical indication: Chest wall pain; Right; Patient HX: RT rib pain TECHNIQUE: Imaging protocol: XR Right ribs 3 views with PA chest. COMPARISON: DX Chest 2V 11/12/2018 1:12 PM FINDINGS: Lungs: Unremarkable. No consolidation. Pleural space: Unremarkable. No pleural effusion. No pneumothorax. Heart/Mediastinum: Unremarkable. No cardiomegaly. Bones/joints: Unremarkable. IMPRESSION: Normal chest and right rib series. Thank you for allowing us to participate in the care of your patient. Dictated and Authenticated by: Luis Martinez MD 01/02/2020 1:04 PM Central Time ([place] & [place]) TOMMY
== END 2019-12-01 15:19 | disposition home or self-care (01) ==
LOC: JD.ED 12:39
DX: R07.89 Other chest pain (principal); F10.10 Alcohol abuse, uncomplicated; R07.81 Pleurodynia; F17.210 Nicotine dependence, cigarettes, uncomplicated
CPT/HCPCS: 36415; 71101-26-RT; 71101-RT; 80307; 99283; 99284-25

== ENCOUNTER 2020-07-10 20:35 | Emergency (ER) | payer MEDICAID ==
[2020-07-10 20:46] VITALS: BP 144/75; PULSE 67
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
[2020-07-10] MEDS ORDERED: LORazepam 1 MG Tab PO ONE (21:07)
== END 2020-07-10 21:26 | disposition home or self-care (01) ==
LOC: JD.ED 20:35
DX: F10.220 Alcohol dependence with intoxication, uncomplicated (principal); Z72.0 Tobacco use
CPT/HCPCS: 99283; A9270; 99284

== ENCOUNTER 2020-07-14 16:05 | Emergency (ER) | payer MEDICAID ==
[2020-07-14 16:12] VITALS: BP 143/92; PULSE 81
[2020-07-14] MEDS ORDERED: LORazepam 2 MG/ML SDV IVPUSH ONE (16:20)
[2020-07-14] MEDS ORDERED: Sodium Chloride 0.9% 1,000 ML IV STA (16:20)
[2020-07-14] MEDS ORDERED: Ondansetron 4 MG/2 ML SDV IVPUSH ONE (16:20)
[2020-07-14 17:21] LABS: ACETAMINOPHEN 0 ug/mL (10-30)
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
[2020-07-14] MEDS ORDERED: LORazepam 1 MG Tab PO ONE (17:31)
== END 2020-07-14 18:40 | disposition other institution (70) ==
LOC: JD.ED 16:05
DX: F10.230 Alcohol dependence with withdrawal, uncomplicated (principal); Z72.0 Tobacco use; Y90.0 Blood alcohol level of less than 20 mg/100 ml
CPT/HCPCS: 36415; 80053; 80143; 80179; 80306; 80307; 84443; 85007; 85027; 93005; 96374; 96375; 99284; A9270; J2060; J2405; J7030; 93010

== ENCOUNTER 2020-07-18 12:36 | Emergency (ER) | payer MEDICAID ==
[2020-07-18 12:49] VITALS: BP 129/78; PULSE 93
[2020-07-18] MEDS ORDERED: LORazepam 2 MG/ML SDV IVPUSH ONE (13:00)
[2020-07-18] MEDS ORDERED: Sodium Chloride 0.9% 10 ML Syringe FLUSH PRN (13:00)
[2020-07-18] MEDS ORDERED: Ondansetron 4 MG/2 ML SDV IVPUSH ONE (13:00)
[2020-07-18] MEDS ORDERED: Sodium Chloride 0.9% 1,000 ML IV ONE (13:00)
[2020-07-18] MEDS ORDERED: Ketorolac 30 MG/ML SDV IVPUSH ONE (13:01)
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
--- NOTE | 2020-07-18 14:59 | CT ---
Head CT Technique: Multiple axial sections through the brain were obtained. Intravenous contrast was not utilized. Reconstructed coronal and sagittal images were obtained. Comparison: Prior head CT study of 06/14/18. Findings: Ventricles along with basal cisterns and sulci over the convexities are within normal limits for the patient's age. No abnormal parenchymal densities are seen. No evidence of intracranial hemorrhage. No midline shift or mass-effect is seen. Bone window settings were reviewed. Visualized paranasal sinuses and mastoid sinuses show minimal mucosal thickening within the ethmoid sinus. Other visualized sinuses are clear. No acute calvarial abnormality is appreciated. Impression: 1. Minimal sinus findings which are believed to be incidental. 2. Nothing acute is appreciated on noncontrast head CT exam. Diagnostic code #2
== END 2020-07-18 16:05 | disposition other institution (70) ==
LOC: JD.ED 12:36
DX: F10.180 Alcohol abuse with alcohol-induced anxiety disorder (principal); Y90.0 Blood alcohol level of less than 20 mg/100 ml; R51.9 Headache, unspecified
CPT/HCPCS: 36415; 70450; 80053; 80307; 85025; 96374; 96375; 99284; J1885; J2060; J2405; J7030

== ENCOUNTER 2020-12-16 15:35 | Emergency (ER) | payer MEDICAID ==
[2020-12-16 15:52] VITALS: BP 107/70; PULSE 65
[2020-12-16] MEDS ORDERED: Metoclopramide 10 MG/2 ML SDV IVPUSH ONE (15:54)
[2020-12-16] MEDS ORDERED: Thiamine 200 MG/2 ML MDV IVPUSH ONE (15:54)
[2020-12-16] MEDS ORDERED: LORazepam 2 MG/ML SDV IVPUSH ONE (15:54)
[2020-12-16] MEDS ORDERED: Dextrose 5%-0.9% NaCl 1,000 ML IV SCH (16:00)
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
== END 2020-12-16 20:30 | disposition other institution (70) ==
LOC: JD.ED 15:35
DX: F10.129 Alcohol abuse with intoxication, unspecified (principal); Z20.822 Contact with and (suspected) exposure to COVID-19; Y90.5 Blood alcohol level of 100-119 mg/100 ml
CPT/HCPCS: 36415; 80053; 80306; 80307; 81001; 82550; 83690; 83735; 85025; 85610; 85730; 87635; 96374; 96375; 99284; J2060; J2765; J3411; J7042; U0002

== ENCOUNTER 2021-01-03 23:49 | Emergency (ER) | payer MEDICAID ==
[2021-01-04 00:12] VITALS: BP 123/63; PULSE 78
[2021-01-04] MEDS ORDERED: Ondansetron 4 MG/2 ML SDV IVPUSH ONE (00:23)
[2021-01-04] MEDS ORDERED: Sodium Chloride 0.9% 10 ML Syringe FLUSH PRN (00:23)
[2021-01-04] MEDS ORDERED: Sodium Chloride 0.9% 1,000 ML IV SCH (00:30)
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
[2021-01-04] MEDS ORDERED: LORazepam 2 MG/ML SDV IVPUSH ONE (01:29)
== END 2021-01-04 02:43 | disposition home or self-care (01) ==
LOC: JD.ED 23:49
DX: F41.9 Anxiety disorder, unspecified (principal); F10.129 Alcohol abuse with intoxication, unspecified; Z72.0 Tobacco use; Y90.5 Blood alcohol level of 100-119 mg/100 ml
CPT/HCPCS: 36415; 80053; 80306; 80307; 85025; 96374; 96375; 99284; J2060; J2405; J7030; 99283

== ENCOUNTER 2021-01-11 13:17 | Emergency (ER) | payer MEDICAID ==
[2021-01-11] MEDS ORDERED: Metoclopramide 10 MG/2 ML SDV IVPUSH ONE (13:39)
[2021-01-11] MEDS ORDERED: Thiamine 200 MG/2 ML MDV IVPUSH ONE (13:39)
[2021-01-11] MEDS ORDERED: LORazepam 2 MG/ML SDV IVPUSH ONE (13:39)
[2021-01-11] MEDS ORDERED: Dextrose 5%-Lactated Ringers 1,000 ML IV SCH (13:45)
[2021-01-11 14:14] VITALS: BP 94/64; PULSE 72
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
[2021-01-11] MEDS ORDERED: LORazepam 1 MG Tab PO ONE (17:50)
== END 2021-01-11 18:03 | disposition other institution (70) ==
LOC: JD.ED 13:17
DX: K29.20 Alcoholic gastritis without bleeding (principal); K70.10 Alcoholic hepatitis without ascites; F10.131 Alcohol abuse with withdrawal delirium; F17.210 Nicotine dependence, cigarettes, uncomplicated; Y90.5 Blood alcohol level of 100-119 mg/100 ml
CPT/HCPCS: 36415; 80053; 80306; 80307; 81001; 82009; 83605; 83735; 83880; 85025; 85610; 85730; 86140; 93005; 96374; 96375; 99284; A9270; J2060; J2765; J3411; J7121

== ENCOUNTER 2021-02-04 15:12 | Emergency (ER) | payer MEDICAID ==
[2021-02-04 15:19] VITALS: BP 116/89; PULSE 113
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
== END 2021-02-04 15:29 ==
LOC: JD.ED 15:12
DX: F10.129 Alcohol abuse with intoxication, unspecified (principal)
CPT/HCPCS: 99284

== ENCOUNTER 2021-04-23 20:43 | Emergency (ER) | payer MEDICAID ==
[2021-04-23] MEDS ORDERED: Sodium Chloride 0.9% 10 ML Syringe FLUSH PRN (20:54)
[2021-04-23 20:57] VITALS: PULSE 116
[2021-04-23] MEDS ORDERED: LORazepam 2 MG/ML SDV IVPUSH ONE (20:57)
[2021-04-23] MEDS: LORazepam 2 MG/ML SDV IM ONE (21:07)
[2021-04-23 21:58] LABS: CORONAVIRUS COVID-19 NAA NEGATIVE (NEGATIVE)
[2021-04-23] MEDS: Ondansetron 4 MG Tab.DIS PO ONE (23:04)
[2021-04-24 00:47] VITALS: BP 125/59
== END 2021-04-23 23:15 | disposition home or self-care (01) ==
LOC: JD.ED 20:43
DX: F10.10 Alcohol abuse, uncomplicated (principal); Z20.822 Contact with and (suspected) exposure to COVID-19; Y90.5 Blood alcohol level of 100-119 mg/100 ml
CPT/HCPCS: 0240U; 36415; 80306; 80307; 96372; 99283; A9270-GY; J2060

== ENCOUNTER 2021-04-29 14:29 | Emergency (ER) | payer MEDICAID ==
[2021-04-29] MEDS ORDERED: Metoclopramide 10 MG/2 ML SDV IVPUSH ONE (15:10)
[2021-04-29] MEDS ORDERED: Ketorolac 30 MG/ML SDV IVPUSH ONE (15:10)
[2021-04-29] MEDS ORDERED: Sodium Chloride 0.9% 1,000 ML IV ONE (15:10)
[2021-04-29] MEDS ORDERED: Sodium Chloride 0.9% 10 ML Syringe FLUSH PRN (15:10)
[2021-04-29] MEDS ORDERED: diphenhydrAMINE 50 MG/ML SDV IVPUSH ONE (15:10)
[2021-04-29] MEDS ORDERED: LORazepam 2 MG/ML SDV IVPUSH ONE (15:11)
[2021-04-29 18:42] VITALS: BP 111/68; PULSE 78
== END 2021-04-29 18:44 | disposition other institution (70) ==
LOC: JD.ED 14:29
DX: F10.230 Alcohol dependence with withdrawal, uncomplicated (principal); Z72.0 Tobacco use; Y90.0 Blood alcohol level of less than 20 mg/100 ml
CPT/HCPCS: 36415; 80307; 96374; 96375; 99285; J1200; J1885; J2060; J2765; J7030; 99284

== ENCOUNTER 2021-07-28 17:57 | Emergency (ER) | payer MEDICAID ==
[2021-07-28] MEDS ORDERED: Sodium Chloride 0.9% 1,000 ML IV ONE (18:02)
[2021-07-28] MEDS ORDERED: Sodium Chloride 0.9% 10 ML Syringe FLUSH PRN (18:02)
[2021-07-28] MEDS ORDERED: LORazepam 2 MG/ML SDV IVPUSH ONE (18:12)
[2021-07-28] MEDS ORDERED: Metoclopramide 10 MG/2 ML SDV IVPUSH ONE (18:12)
[2021-07-28 18:16] VITALS: BP 139/110; PULSE 108
[2021-07-28 18:53] LABS: ESTIMATED GFR > 60 mL/min (>60)
== END 2021-07-28 20:25 | disposition home or self-care (01) ==
LOC: JD.ED 17:57
DX: F10.129 Alcohol abuse with intoxication, unspecified (principal); Z86.16 Personal history of COVID-19; Y90.1 Blood alcohol level of 20-39 mg/100 ml
CPT/HCPCS: 36415; 80053; 80306; 80307; 85025; 96374; 96375; 99284; J2060; J2765; J3490; J7030; 99283

== ENCOUNTER 2021-08-08 12:00 | Emergency (ER) | payer MEDICAID ==
[2021-08-08 12:13] VITALS: BP 135/87; PULSE 81
[2021-08-08 13:09] LABS: ESTIMATED GFR > 60 mL/min (>60)
[2021-08-08 13:10] LABS: ACETAMINOPHEN 0 ug/mL (10-30)
[2021-08-08] MEDS ORDERED: LORazepam 1 MG Tab PO ONE (13:31)
[2021-08-08] MEDS ORDERED: Ondansetron 4 MG Tab.DIS PO ONE (14:22)
== END 2021-08-08 14:59 ==
LOC: JD.ED 12:00
DX: F10.230 Alcohol dependence with withdrawal, uncomplicated (principal); F17.210 Nicotine dependence, cigarettes, uncomplicated; Z86.16 Personal history of COVID-19
CPT/HCPCS: 36415; 80053; 80143; 80179; 80306; 80307; 85025; 93005; 99285; A9270; 93010; 99284

== ENCOUNTER 2021-08-15 16:20 | Emergency (ER) | payer MEDICAID ==
[2021-08-15] MEDS ORDERED: Sodium Chloride 0.9% 10 ML Syringe FLUSH PRN (17:04)
[2021-08-15] MEDS ORDERED: Metoclopramide 10 MG/2 ML SDV IVPUSH ONE (17:23)
[2021-08-15] MEDS ORDERED: Sodium Chloride 0.9% 1,000 ML IV ONE (17:23)
[2021-08-15] MEDS ORDERED: LORazepam 2 MG/ML SDV IVPUSH ONE (17:23)
[2021-08-15] MEDS ORDERED: Potassium Chloride 20 MEQ Tab.ER PO ONE (18:58)
[2021-08-15] MEDS ORDERED: Magnesium Oxide 400 MG Tab PO ONE (18:58)
[2021-08-15 19:21] VITALS: BP 115/69; PULSE 108
== END 2021-08-15 19:40 | disposition other institution (70) ==
LOC: JD.ED 16:20
DX: F10.10 Alcohol abuse, uncomplicated (principal); F17.210 Nicotine dependence, cigarettes, uncomplicated
CPT/HCPCS: 36415; 80053; 80143; 80179; 80306; 80307; 81001; 83735; 84443; 85025; 87086; 96361; 96374; 96375; 99284; A9270; J2060; J2765; J3490; J7030

== ENCOUNTER 2021-12-14 08:37 | Emergency (ER) | payer MEDICAID ==
[2021-12-14 08:49] VITALS: BP 155/76; PULSE 110
[2021-12-14 09:43] LABS: CORONAVIRUS COVID-19 NAA NEGATIVE (NEGATIVE)
[2021-12-14] MEDS ORDERED: LORazepam 1 MG Tab PO ONE (09:44)
[2021-12-14] MEDS ORDERED: Ondansetron 4 MG Tab.DIS PO ONE (09:44)
[2021-12-14] MEDS ORDERED: Acetaminophen 325 MG Tab PO ONE (10:15)
== END 2021-12-14 11:52 | disposition home or self-care (01) ==
LOC: JD.ED 08:37
DX: F10.10 Alcohol abuse, uncomplicated (principal); Z20.822 Contact with and (suspected) exposure to COVID-19; Z79.899 Other long term (current) drug therapy; Z86.16 Personal history of COVID-19
CPT/HCPCS: 0240U; 36415; 80053; 80143; 80179; 80306; 80307; 85025; 99283; A9270

== ENCOUNTER 2021-12-15 19:06 | Emergency (ER) | payer MEDICAID ==
[2021-12-15 22:22] VITALS: BP 100/62; PULSE 77
== END 2021-12-15 22:42 | disposition home or self-care (01) ==
LOC: JD.ED 19:06
DX: F10.129 Alcohol abuse with intoxication, unspecified (principal); Z79.899 Other long term (current) drug therapy
CPT/HCPCS: 99284

== ENCOUNTER 2021-12-18 12:31 | Emergency (ER) | payer MEDICAID ==
[2021-12-18 13:35] VITALS: BP 123/71; PULSE 99
[2021-12-18] MEDS ORDERED: Sodium Chloride 0.9% 10 ML Syringe FLUSH PRN (14:25)
[2021-12-18] MEDS ORDERED: Sodium Chloride 0.9% 1,000 ML IV ONE ×2 (14:26→16:37)
[2021-12-18] MEDS ORDERED: LORazepam 2 MG/ML SDV IVPUSH ONE (14:32)
[2021-12-18] MEDS ORDERED: Metoclopramide 10 MG/2 ML SDV IVPUSH ONE (14:32)
[2021-12-18] MEDS ORDERED: Acetaminophen 325 MG Tab PO ONE (16:27)
[2021-12-18] MEDS ORDERED: Magnesium Sulfate/Water 4 GM in Premix Bag 1 BAG IV ONE (16:37)
[2021-12-18] MEDS ORDERED: Ondansetron 4 MG/2 ML SDV IVPUSH ONE (20:16)
[2021-12-18] MEDS ORDERED: Ketorolac 30 MG/ML SDV IVPUSH ONE (20:16)
[2021-12-18] MEDS ORDERED: LORazepam 1 MG Tab PO ONE (21:37)
== END 2021-12-18 22:09 | disposition home or self-care (01) ==
LOC: JD.ED 12:31
DX: F10.932 Alcohol use, unspecified with withdrawal with perceptual disturbance (principal); F17.210 Nicotine dependence, cigarettes, uncomplicated
CPT/HCPCS: 36415; 80053; 80143; 80179; 80306; 80307; 81001; 83735; 84443; 85025; 93005; 96361; 96365; 96366; 96375; 99283; A9270; J1885; J2060; J2405; J2765; J3475; J3490; J7030; 93010

== ENCOUNTER 2022-01-06 15:00 | Emergency (ER) | payer MEDICAID ==
[2022-01-06 18:16] VITALS: BP 132/82; PULSE 72
[2022-01-06] MEDS ORDERED: LORazepam 2 MG/ML SDV IM ONE (18:22)
[2022-01-06] MEDS ORDERED: Acetaminophen 325 MG Tab PO ONE (20:38)
== END 2022-01-06 20:53 | disposition home or self-care (01) ==
LOC: JD.ED 15:00
DX: F10.10 Alcohol abuse, uncomplicated (principal); Z86.16 Personal history of COVID-19; Y90.0 Blood alcohol level of less than 20 mg/100 ml
CPT/HCPCS: 36415; 80306; 80307; 96372; 99284; A9270; J2060

== ENCOUNTER 2022-01-21 12:40 | Emergency (ER) | payer MEDICAID ==
[2022-01-21] MEDS ORDERED: Sodium Chloride 0.9% 10 ML Syringe FLUSH PRN (13:21)
[2022-01-21] MEDS ORDERED: Sodium Chloride 0.9% 1,000 ML IV SCH ×2 (13:30→15:00)
[2022-01-21 14:45] LABS: ESTIMATED GFR 127 mL/min (>60)
[2022-01-21] MEDS ORDERED: LORazepam 2 MG/ML SDV IVPUSH ONE (19:27)
[2022-01-21 20:30] VITALS: BP 128/62; PULSE 82
== END 2022-01-21 20:05 | disposition other institution (70) ==
LOC: JD.ED 12:40
DX: F10.229 Alcohol dependence with intoxication, unspecified (principal); F17.210 Nicotine dependence, cigarettes, uncomplicated; Z79.899 Other long term (current) drug therapy
CPT/HCPCS: 36415; 80053; 80306; 80307; 85025; 96361; 96374; 99283; J2060; J3490; J7030

== ENCOUNTER 2022-01-25 11:09 | Emergency (ER) | payer MEDICAID ==
[2022-01-25 12:33] VITALS: BP 108/71; PULSE 99
[2022-01-25] MEDS ORDERED: Sodium Chloride 0.9% 10 ML Syringe FLUSH PRN (12:35)
[2022-01-25] MEDS ORDERED: Sodium Chloride 0.9% 1,000 ML IV STA (12:35)
== END 2022-01-25 14:43 | disposition other institution (70) ==
LOC: JD.ED 11:09
DX: F10.920 Alcohol use, unspecified with intoxication, uncomplicated (principal); F17.210 Nicotine dependence, cigarettes, uncomplicated; Z86.16 Personal history of COVID-19; Y90.1 Blood alcohol level of 20-39 mg/100 ml
CPT/HCPCS: 36415; 80053; 80143; 80179; 80306; 80307; 84443; 85007; 85027; 93005; 96360; 99285; J3490; J7030

== ENCOUNTER 2022-12-30 13:55 | Emergency (ER) | payer MEDICAID ==
[2022-12-30] MEDS ORDERED: LORazepam 2 MG/ML SDV IVPUSH ONE (14:10)
[2022-12-30] MEDS ORDERED: Metoclopramide 10 MG/2 ML SDV IVPUSH ONE (14:10)
[2022-12-30] MEDS ORDERED: Thiamine 200 MG/2 ML MDV IVPUSH ONE (14:12)
[2022-12-30] MEDS ORDERED: Dextrose 5%-Lactated Ringers 1,000 ML IV SCH (14:15)
[2022-12-30 14:31] LABS: BASOPHILS ABSOLUTE AUTO 0.1 K/mm3 (0.0-0.2); BASOPHILS PERCENT AUTO 1.5 % (0.0-1.0); EOSINOPHILS PERCENT AUTO 0.5 % (0.0-6.0); HEMOGLOBIN 16.1 gm/dl (14.0-18.0); IMMATURE GRAN ABSOLUTE AUTO 0.01 K/mm3 (0.00-0.05); IMMATURE GRAN PERCENT AUTO 0.2 % (0.0-0.4); LYMPHOCYTES ABSOLUTE AUTO 2.6 K/mm3 (1.0-4.8); LYMPHOCYTES PERCENT AUTO 38.8 % (24.0-44.0); MEAN CORPUSCULAR HEMOGLOBIN 32.7 pg (28.0-32.0); MEAN CORPUSCULAR HGB CONC 34.3 g/dl (32.0-36.0); MEAN CORPUSCULAR VOLUME 95.5 fl (83.0-99.0); MEAN PLATELET VOLUME 9.9 fl (9.4-12.4); MONOCYTES ABSOLUTE AUTO 0.5 K/mm3 (0.0-0.8); MONOCYTES PERCENT AUTO 7.1 % (0.0-8.0); NEUTROPHILS ABSOLUTE AUTO 3.5 K/mm3 (1.8-7.7); NEUTROPHILS PERCENT AUTO 51.9 % (41.0-71.0); PLATELET COUNT,PLT 294 K/mm3 (150-400); RED BLOOD CELL COUNT 4.92 M/mm3 (4.52-5.90); WHITE BLOOD CELL COUNT,WBC 6.63 K/mm3 (3.9-11.3)
[2022-12-30 14:49] LABS: INR 0.96; PROTHROMBIN TIME 10.3 SECONDS (9.7-12.0)
[2022-12-30 14:54] LABS: ALBUMIN 4.2 g/dl (3.4-5.0); ANION GAP 14.5 (5-15); BILIRUBIN TOTAL 0.3 mg/dL (0.2-1.0); BUN/CREATININE RATIO 5.6 (14-18); CALCIUM 8.8 mg/dL (8.5-10.1); CREATININE 0.9 mg/dL (0.7-1.3); EST CRCL DRUG DOSING (CG) 130.9 mL/min; MAGNESIUM 2.1 mg/dL (1.8-2.4); POTASSIUM,K 3.5 mEq/L (3.5-5.1); PROTEIN TOTAL,TP 8.4 g/dl (6.4-8.2)
[2022-12-30] MEDS ORDERED: hydrOXYzine HCl 25 MG Tab PO ONE (22:18)
[2022-12-30 22:35] VITALS: BP 121/77; PULSE 97
== END 2022-12-30 22:46 | disposition home or self-care (01) ==
LOC: JD.ED 13:55
DX: F10.920 Alcohol use, unspecified with intoxication, uncomplicated (principal); F17.210 Nicotine dependence, cigarettes, uncomplicated; Z86.16 Personal history of COVID-19
CPT/HCPCS: 36415; 80053; 80307; 83735; 85025; 85610; 96361; 96374; 96375; 99285; A9270; J2060; J2765; J3411; J7121; 99284

== ENCOUNTER 2023-01-03 11:03 | Emergency (ER) | payer MEDICAID ==
[2023-01-03] MEDS ORDERED: Ondansetron 4 MG/2 ML SDV IVPUSH ONE (11:28)
[2023-01-03] MEDS ORDERED: Sodium Chloride 0.9% 10 ML Syringe FLUSH PRN (11:28)
[2023-01-03] MEDS ORDERED: LORazepam 2 MG/ML SDV IVPUSH ONE (11:30)
[2023-01-03] MEDS ORDERED: Sodium Chloride 0.9% 1,000 ML IV SCH (11:30)
[2023-01-03 12:15] LABS: BASOPHILS ABSOLUTE AUTO 0.1 K/mm3 (0.0-0.2); BASOPHILS PERCENT AUTO 0.9 % (0.0-1.0); EOSINOPHILS PERCENT AUTO 0.4 % (0.0-6.0); HEMATOCRIT 43.4 % (42.0-52.0); IMMATURE GRAN ABSOLUTE AUTO 0.03 K/mm3 (0.00-0.05); IMMATURE GRAN PERCENT AUTO 0.4 % (0.0-0.4); LYMPHOCYTES ABSOLUTE AUTO 2.5 K/mm3 (1.0-4.8); LYMPHOCYTES PERCENT AUTO 29.2 % (24.0-44.0); MEAN CORPUSCULAR HGB CONC 34.6 g/dl (32.0-36.0); MEAN CORPUSCULAR VOLUME 95.6 fl (83.0-99.0); MONOCYTES ABSOLUTE AUTO 0.6 K/mm3 (0.0-0.8); MONOCYTES PERCENT AUTO 6.8 % (0.0-8.0); NEUTROPHILS ABSOLUTE AUTO 5.3 K/mm3 (1.8-7.7); NEUTROPHILS PERCENT AUTO 62.3 % (41.0-71.0); PLATELET COUNT,PLT 264 K/mm3 (150-400); RED BLOOD CELL COUNT 4.54 M/mm3 (4.52-5.90); WHITE BLOOD CELL COUNT,WBC 8.43 K/mm3 (3.9-11.3)
[2023-01-03 12:43] LABS: BARBITURATE SCREEN,URINE NEGATIVE (CUTOFF=200); BENZODIAZEPINES SCREEN,URINE NEGATIVE (CUTOFF=150); BUPRENORPHINE SCREEN,URINE NEGATIVE (CUTOFF=10); METHADONE SCREEN, URINE NEGATIVE (CUT0FF=200); METHAMPHETAMINES SCREEN, URINE NEGATIVE (CUTOFF=500); OXYCODONE SCREEN,URINE NEGATIVE (CUT0FF=100); THC SCREEN,URINE 20 NG/ML NEGATIVE (CUTOFF=50)
[2023-01-03 12:46] LABS: AMPHETAMINES SCREEN, URINE NEGATIVE (CUTOFF=500)
[2023-01-03 12:53] LABS: A/G RATIO 1.1 (1-2); ANION GAP 15.8 (5-15); BILIRUBIN TOTAL 0.6 mg/dL (0.2-1.0); BUN/CREATININE RATIO 12.9 (14-18); CALCIUM 9.2 mg/dL (8.5-10.1); CREATININE 0.7 mg/dL (0.7-1.3); EST CRCL DRUG DOSING (CG) 154.31 mL/min; ETHANOL BLOOD MEDICAL 0.07 gm% (0.00); POTASSIUM,K 3.8 mEq/L (3.5-5.1); PROTEIN TOTAL,TP 7.8 g/dl (6.4-8.2); TSH 0.455 uIU/mL (0.358-3.74)
[2023-01-03 14:16] VITALS: BP 129/69; PULSE 61
== END 2023-01-03 14:14 ==
LOC: JD.ED 11:03
DX: F10.130 Alcohol abuse with withdrawal, uncomplicated (principal); F17.210 Nicotine dependence, cigarettes, uncomplicated; Y99.0 Civilian activity done for income or pay
CPT/HCPCS: 36415; 80053; 80143; 80179; 80306; 80307; 84443; 85025; 96361; 96374; 96375; 99284; J2060; J2405; J3490; J7030

== ENCOUNTER 2023-04-11 21:24 | Emergency (ER) | payer MEDICAID ==
[2023-04-11 22:54] VITALS: BP 136/86; PULSE 96
== END 2023-04-11 22:27 ==
LOC: JD.ED 21:24
DX: F10.920 Alcohol use, unspecified with intoxication, uncomplicated (principal); N17.9 Acute kidney failure, unspecified; Z86.16 Personal history of COVID-19
CPT/HCPCS: 99284

== ENCOUNTER 2023-04-12 12:43 | Emergency (ER) | payer MEDICAID ==
[2023-04-12] MEDS: Ondansetron 4 MG Tab.DIS PO ONE (13:28)
[2023-04-12] MEDS: LORazepam 1 MG Tab PO ONE (13:28)
[2023-04-12 13:53] LABS: BARBITURATE SCREEN,URINE NEGATIVE (CUTOFF=200); BENZODIAZEPINES SCREEN,URINE PRESUMPTIVE POSITIVE (CUTOFF=150); BUPRENORPHINE SCREEN,URINE NEGATIVE (CUTOFF=10); METHADONE SCREEN, URINE NEGATIVE (CUT0FF=200); METHAMPHETAMINES SCREEN, URINE NEGATIVE (CUTOFF=500); OXYCODONE SCREEN,URINE NEGATIVE (CUT0FF=100); THC SCREEN,URINE 20 NG/ML NEGATIVE (CUTOFF=50)
[2023-04-12 13:54] LABS: AMPHETAMINES SCREEN, URINE NEGATIVE (CUTOFF=500)
[2023-04-12 14:07] LABS: BASOPHILS ABSOLUTE AUTO 0.1 K/mm3 (0.0-0.2); BASOPHILS PERCENT AUTO 0.9 % (0.0-1.0); EOSINOPHILS ABSOLUTE AUTO 0.1 K/mm3 (0.0-0.4); HEMATOCRIT 40.2 % (42.0-52.0); HEMOGLOBIN 13.8 gm/dl (14.0-18.0); IMMATURE GRAN ABSOLUTE AUTO 0.02 K/mm3 (0.00-0.05); IMMATURE GRAN PERCENT AUTO 0.3 % (0.0-0.4); LYMPHOCYTES ABSOLUTE AUTO 2.3 K/mm3 (1.0-4.8); LYMPHOCYTES PERCENT AUTO 29.5 % (24.0-44.0); MEAN CORPUSCULAR HEMOGLOBIN 33.2 pg (28.0-32.0); MEAN CORPUSCULAR HGB CONC 34.3 g/dl (32.0-36.0); MEAN CORPUSCULAR VOLUME 96.6 fl (83.0-99.0); MEAN PLATELET VOLUME 9.5 fl (9.4-12.4); MONOCYTES ABSOLUTE AUTO 0.5 K/mm3 (0.0-0.8); MONOCYTES PERCENT AUTO 6.5 % (0.0-8.0); NEUTROPHILS ABSOLUTE AUTO 4.7 K/mm3 (1.8-7.7); NEUTROPHILS PERCENT AUTO 61.8 % (41.0-71.0); PLATELET COUNT,PLT 276 K/mm3 (150-400); RED BLOOD CELL COUNT 4.16 M/mm3 (4.52-5.90); WHITE BLOOD CELL COUNT,WBC 7.65 K/mm3 (3.9-11.3)
[2023-04-12] MEDS: Acetaminophen 325 MG Tab PO ONE (14:38)
[2023-04-12 14:54] LABS: A/G RATIO 1.1 (1-2); ALBUMIN 3.9 g/dl (3.4-5.0); ANION GAP 13.9 (5-15); BILIRUBIN TOTAL 0.3 mg/dL (0.2-1.0); BUN/CREATININE RATIO 12.2 (14-18); CALCIUM 8.8 mg/dL (8.5-10.1); CREATININE 0.9 mg/dL (0.7-1.3); EST CRCL DRUG DOSING (CG) 118.92 mL/min; ETHANOL BLOOD MEDICAL 0.01 gm% (0.00); POTASSIUM,K 3.9 mEq/L (3.5-5.1); PROTEIN TOTAL,TP 7.6 g/dl (6.4-8.2); TSH 0.783 uIU/mL (0.358-3.74)
[2023-04-12 16:50] VITALS: BP 142/74; PULSE 99
== END 2023-04-12 16:40 ==
LOC: JD.ED 12:43
DX: F10.230 Alcohol dependence with withdrawal, uncomplicated (principal); F17.210 Nicotine dependence, cigarettes, uncomplicated; Z86.16 Personal history of COVID-19; Z79.899 Other long term (current) drug therapy
CPT/HCPCS: 36415; 80053; 80143; 80179; 80306; 80307; 84443; 85025; 93005; 99284; A9270

== ENCOUNTER 2023-05-05 08:29 | Emergency (ER) | payer MEDICAID ==
[2023-05-05 09:12] LABS: BASOPHILS ABSOLUTE AUTO 0.1 K/mm3 (0.0-0.2); BASOPHILS PERCENT AUTO 1.3 % (0.0-1.0); EOSINOPHILS PERCENT AUTO 0.5 % (0.0-6.0); HEMATOCRIT 45.6 % (42.0-52.0); HEMOGLOBIN 15.6 gm/dl (14.0-18.0); IMMATURE GRAN ABSOLUTE AUTO 0.02 K/mm3 (0.00-0.05); IMMATURE GRAN PERCENT AUTO 0.3 % (0.0-0.4); LYMPHOCYTES ABSOLUTE AUTO 2.6 K/mm3 (1.0-4.8); LYMPHOCYTES PERCENT AUTO 35.3 % (24.0-44.0); MEAN CORPUSCULAR HEMOGLOBIN 32.8 pg (28.0-32.0); MEAN CORPUSCULAR HGB CONC 34.2 g/dl (32.0-36.0); MEAN PLATELET VOLUME 9.5 fl (9.4-12.4); MONOCYTES ABSOLUTE AUTO 0.6 K/mm3 (0.0-0.8); MONOCYTES PERCENT AUTO 7.5 % (0.0-8.0); NEUTROPHILS ABSOLUTE AUTO 4.1 K/mm3 (1.8-7.7); NEUTROPHILS PERCENT AUTO 55.1 % (41.0-71.0); PLATELET COUNT,PLT 292 K/mm3 (150-400); RED BLOOD CELL COUNT 4.75 M/mm3 (4.52-5.90); WHITE BLOOD CELL COUNT,WBC 7.46 K/mm3 (3.9-11.3)
[2023-05-05 09:28] LABS: A/G RATIO 1.3 (1-2); ALBUMIN 4.3 g/dl (3.4-5.0); ANION GAP 16.4 (5-15); BILIRUBIN TOTAL 0.6 mg/dL (0.2-1.0); BUN/CREATININE RATIO 12.5 (14-18); CALCIUM 8.6 mg/dL (8.5-10.1); CREATININE 0.8 mg/dL (0.7-1.3); EST CRCL DRUG DOSING (CG) 120.73 mL/min; ETHANOL BLOOD MEDICAL 0.12 gm% (0.00); MAGNESIUM 1.5 mg/dL (1.8-2.4); POTASSIUM,K 3.4 mEq/L (3.5-5.1); PROTEIN TOTAL,TP 7.7 g/dl (6.4-8.2); TSH 0.581 uIU/mL (0.358-3.74)
[2023-05-05] MEDS: Sodium Chloride 0.9% 1,000 ML IV ONE (09:36)
[2023-05-05] MEDS: Metoclopramide 10 MG/2 ML SDV IVPUSH ONE (09:36)
[2023-05-05] MEDS: LORazepam 2 MG/ML SDV IVPUSH ONE ×3 (09:36→12:15)
[2023-05-05] MEDS: Sodium Chloride 0.9% 10 ML Syringe FLUSH PRN (09:39)
[2023-05-05] MEDS: Magnesium Sulfate/Water 4 GM in Premix Bag 1 BAG IV ONE (10:37)
[2023-05-05 10:48] LABS: APPEARANCE,URINE CLEAR (Clear); BILIRUBIN,URINE NEGATIVE (Negative); COLOR,URINE YELLOW (Yellow); GLUCOSE,URINE NEGATIVE (Negative); KETONES,URINE 1+ (Negative); LEUKOCYTE ESTERASE,URINE NEGATIVE (Negative); NITRITE,URINE NEGATIVE (Negative); OCCULT BLOOD,URINE NEGATIVE (Negative); PH,URINE 8.5 (5.0-8.0); PROTEIN,URINE 2+ (Negative); UROBILINOGEN,URINE 0.2 (0.2-1.0)
[2023-05-05 10:56] LABS: BACTERIA,URINE MODERATE /hpf (FEW); MUCUS,URINE FEW /hpf (FEW); RBC,URINE 0-5 /hpf (0-5); SQUAMOUS EPITHELIAL CELLS,UR NOT SEEN /hpf (0-5); WBC,URINE 0-5 /hpf (0-5)
[2023-05-05 11:01] LABS: BARBITURATE SCREEN,URINE NEGATIVE (CUTOFF=200); BENZODIAZEPINES SCREEN,URINE PRESUMPTIVE POSITIVE (CUTOFF=150); BUPRENORPHINE SCREEN,URINE NEGATIVE (CUTOFF=10); METHADONE SCREEN, URINE NEGATIVE (CUT0FF=200); METHAMPHETAMINES SCREEN, URINE NEGATIVE (CUTOFF=500); OXYCODONE SCREEN,URINE NEGATIVE (CUT0FF=100); THC SCREEN,URINE 20 NG/ML NEGATIVE (CUTOFF=50)
[2023-05-05 11:03] LABS: AMPHETAMINES SCREEN, URINE NEGATIVE (CUTOFF=500)
[2023-05-05] MEDS: Ondansetron 4 MG/2 ML SDV IVPUSH ONE (12:45)
[2023-05-05 19:41] VITALS: BP 122/77; PULSE 75
== END 2023-05-05 15:05 | disposition home or self-care (01) ==
LOC: JD.ED 08:29
DX: F10.10 Alcohol abuse, uncomplicated (principal); Z79.899 Other long term (current) drug therapy; Z86.16 Personal history of COVID-19
CPT/HCPCS: 36415; 80053; 80143; 80179; 80306; 80307; 81001; 83735; 84443; 85025; 93005; 96361; 96365; 96366; 96375; 96376; 99285; J2060; J2405; J2765; J3475; J3490; J7030; 93010; 99284

== ENCOUNTER 2023-05-17 13:02 | Emergency (ER) | payer SELFPAY ==
[2023-05-17 13:34] LABS: HEMATOCRIT 46.2 % (42.0-52.0); HEMOGLOBIN 15.9 gm/dl (14.0-18.0); MEAN CORPUSCULAR HEMOGLOBIN 33.1 pg (28.0-32.0); MEAN CORPUSCULAR HGB CONC 34.4 g/dl (32.0-36.0); MEAN PLATELET VOLUME 9.1 fl (9.4-12.4); PLATELET COUNT,PLT 333 K/mm3 (150-400); RED BLOOD CELL COUNT 4.81 M/mm3 (4.52-5.90); WHITE BLOOD CELL COUNT,WBC 6.41 K/mm3 (3.9-11.3)
[2023-05-17 13:50] LABS: BARBITURATE SCREEN,URINE NEGATIVE (CUTOFF=200); BENZODIAZEPINES SCREEN,URINE NEGATIVE (CUTOFF=150); BUPRENORPHINE SCREEN,URINE NEGATIVE (CUTOFF=10); METHADONE SCREEN, URINE NEGATIVE (CUT0FF=200); METHAMPHETAMINES SCREEN, URINE NEGATIVE (CUTOFF=500); OXYCODONE SCREEN,URINE NEGATIVE (CUT0FF=100); THC SCREEN,URINE 20 NG/ML NEGATIVE (CUTOFF=50)
[2023-05-17 13:52] LABS: AMPHETAMINES SCREEN, URINE NEGATIVE (CUTOFF=500)
[2023-05-17] MEDS: Sodium Chloride 0.9% 1,000 ML IV STA (13:58)
[2023-05-17] MEDS: Ondansetron 4 MG/2 ML SDV IVPUSH ONE (13:58)
[2023-05-17 14:04] LABS: A/G RATIO 1.2 (1-2); ALANINE AMINOTRANSFERASE,ALT 52 U/L (16-63); ALBUMIN 4.5 g/dl (3.4-5.0); ALKALINE PHOSPHATASE 128 U/L (46-116); ANION GAP 15.5 (5-15); ASPARTATE AMNIOTRANSFERASE,AST 43 U/L (15-37); BILIRUBIN TOTAL 0.4 mg/dL (0.2-1.0); BLOOD UREA NITROGEN,BUN 9 mg/dL (7-18); BUN/CREATININE RATIO 11.3 (14-18); CALCIUM 8.9 mg/dL (8.5-10.1); CARBON DIOXIDE,CO2 30 mEq/L (21-32); CHLORIDE,CL 103 mEq/L (98-107); CREATININE 0.8 mg/dL (0.7-1.3); ESTIMATED GFR 121 mL/min (>60); ETHANOL BLOOD MEDICAL 0.37 gm% (0.00); GLUCOSE RANDOM 107 mg/dL (70-99); POTASSIUM,K 3.5 mEq/L (3.5-5.1); PROTEIN TOTAL,TP 8.2 g/dl (6.4-8.2); SODIUM,NA 145 mEq/L (136-145); TSH 0.339 uIU/mL (0.358-3.74)
[2023-05-17 14:05] LABS: ACETAMINOPHEN 0 ug/mL (10-30)
[2023-05-17 14:07] LABS: BAND PERCENT MAN 0 % (0-10); BASOPHILS PERCENT MAN 1 (0.2-1.2); EOSINOPHILS PERCENT MAN 0 % (0.8-7.0); LYMPHOCYTES % ATYPICAL MANUAL 0 %; LYMPHOCYTES PERCENT MAN 37 % (20-40); MONOCYTES PERCENT MAN 8 % (2-10); PLATELET COUNT ESTIMATE ADEQUATE
[2023-05-17] MEDS: LORazepam 2 MG/ML SDV IVPUSH ONE (19:22)
[2023-05-17 23:11] VITALS: BP 114/73; PULSE 82
== END 2023-05-17 22:52 | disposition home or self-care (01) ==
LOC: JD.ED 13:02
DX: F10.129 Alcohol abuse with intoxication, unspecified (principal); Z86.16 Personal history of COVID-19; Y90.1 Blood alcohol level of 20-39 mg/100 ml
CPT/HCPCS: 36415; 80053; 80143; 80179; 80306; 80307; 84443; 85007; 85027; 96361; 96374; 96375; 99284; J2060; J2405; J7030

== ENCOUNTER 2023-05-22 05:01 | Emergency (ER) | payer SELFPAY ==
[2023-05-22 05:54] LABS: BASOPHILS ABSOLUTE AUTO 0.1 K/mm3 (0.0-0.2); BASOPHILS PERCENT AUTO 1.4 % (0.0-1.0); EOSINOPHILS ABSOLUTE AUTO 0.1 K/mm3 (0.0-0.4); EOSINOPHILS PERCENT AUTO 0.9 % (0.0-6.0); HEMOGLOBIN 15.1 gm/dl (14.0-18.0); IMMATURE GRAN ABSOLUTE AUTO 0.01 K/mm3 (0.00-0.05); IMMATURE GRAN PERCENT AUTO 0.2 % (0.0-0.4); LYMPHOCYTES ABSOLUTE AUTO 2.7 K/mm3 (1.0-4.8); LYMPHOCYTES PERCENT AUTO 42.2 % (24.0-44.0); MEAN CORPUSCULAR HEMOGLOBIN 32.9 pg (28.0-32.0); MEAN CORPUSCULAR HGB CONC 34.3 g/dl (32.0-36.0); MEAN CORPUSCULAR VOLUME 95.9 fl (83.0-99.0); MEAN PLATELET VOLUME 9.2 fl (9.4-12.4); MONOCYTES ABSOLUTE AUTO 0.5 K/mm3 (0.0-0.8); NEUTROPHILS ABSOLUTE AUTO 3.1 K/mm3 (1.8-7.7); NEUTROPHILS PERCENT AUTO 48.3 % (41.0-71.0); PLATELET COUNT,PLT 283 K/mm3 (150-400); RED BLOOD CELL COUNT 4.59 M/mm3 (4.52-5.90); WHITE BLOOD CELL COUNT,WBC 6.47 K/mm3 (3.9-11.3)
[2023-05-22 06:42] LABS: A/G RATIO 1.2 (1-2); ALBUMIN 4.2 g/dl (3.4-5.0); ANION GAP 18.5 (5-15); BILIRUBIN TOTAL 0.7 mg/dL (0.2-1.0); BUN/CREATININE RATIO 13.8 (14-18); CALCIUM 8.9 mg/dL (8.5-10.1); CREATININE 0.8 mg/dL (0.7-1.3); EST CRCL DRUG DOSING (CG) 133.79 mL/min; ETHANOL BLOOD MEDICAL 0.17 gm% (0.00); MAGNESIUM 1.7 mg/dL (1.8-2.4); POTASSIUM,K 3.5 mEq/L (3.5-5.1); PROTEIN TOTAL,TP 7.8 g/dl (6.4-8.2)
[2023-05-22 06:44] LABS: TSH 0.786 uIU/mL (0.358-3.74)
[2023-05-22 06:45] LABS: T4 FREE 1.05 ng/dL (0.76-1.46)
[2023-05-22 07:36] LABS: APPEARANCE,URINE CLEAR (Clear); BILIRUBIN,URINE 1+ (Negative); COLOR,URINE DARK YELLOW (Yellow); GLUCOSE,URINE NEGATIVE (Negative); KETONES,URINE TRACE (Negative); LEUKOCYTE ESTERASE,URINE NEGATIVE (Negative); NITRITE,URINE NEGATIVE (Negative); OCCULT BLOOD,URINE NEGATIVE (Negative); PH,URINE 7.5 (5.0-8.0); PROTEIN,URINE 1+ (Negative)
[2023-05-22 07:45] LABS: BARBITURATE SCREEN,URINE NEGATIVE (CUTOFF=200); BENZODIAZEPINES SCREEN,URINE NEGATIVE (CUTOFF=150); BUPRENORPHINE SCREEN,URINE NEGATIVE (CUTOFF=10); METHADONE SCREEN, URINE NEGATIVE (CUT0FF=200); METHAMPHETAMINES SCREEN, URINE NEGATIVE (CUTOFF=500); OXYCODONE SCREEN,URINE NEGATIVE (CUT0FF=100); THC SCREEN,URINE 20 NG/ML NEGATIVE (CUTOFF=50)
[2023-05-22 07:47] LABS: AMPHETAMINES SCREEN, URINE NEGATIVE (CUTOFF=500)
[2023-05-22] MEDS: LORazepam 1 MG Tab PO ONE (08:03)
[2023-05-22] MEDS: Ondansetron 4 MG Tab.DIS PO ONE (08:03)
[2023-05-22 08:19] LABS: BACTERIA,URINE FEW /hpf (FEW); MUCUS,URINE MODERATE /hpf (FEW); RBC,URINE 0-5 /hpf (0-5); WBC,URINE 0-5 /hpf (0-5)
[2023-05-22] MEDS: Acetaminophen 325 MG Tab PO ONE (11:22)
[2023-05-22 14:00] VITALS: BP 144/90; PULSE 91
== END 2023-05-22 11:58 | disposition home or self-care (01) ==
LOC: JD.ED 05:01
DX: F10.220 Alcohol dependence with intoxication, uncomplicated (principal); Y90.0 Blood alcohol level of less than 20 mg/100 ml; Z86.16 Personal history of COVID-19
CPT/HCPCS: 36415; 80053; 80143; 80179; 80306; 80307; 81001; 83735; 84439; 84443; 85025; 99285; A9270; 99283

== ENCOUNTER 2023-10-18 18:34 | Emergency (ER) | payer MEDICAID ==
[2023-10-18] MEDS ORDERED: Sodium Chloride 0.9% 10 ML Syringe FLUSH PRN (19:46)
[2023-10-18 20:10] LABS: APPEARANCE,URINE CLEAR (Clear); BILIRUBIN,URINE NEGATIVE (Negative); COLOR,URINE YELLOW (Yellow); GLUCOSE,URINE NEGATIVE (Negative); KETONES,URINE NEGATIVE (Negative); LEUKOCYTE ESTERASE,URINE NEGATIVE (Negative); NITRITE,URINE NEGATIVE (Negative); OCCULT BLOOD,URINE NEGATIVE (Negative); PH,URINE 6.5 (5.0-8.0); PROTEIN,URINE NEGATIVE (Negative); UROBILINOGEN,URINE 0.2 (0.2-1.0)
[2023-10-18 20:42] LABS: BARBITURATE SCREEN,URINE NEGATIVE (CUTOFF=200); BENZODIAZEPINES SCREEN,URINE NEGATIVE (CUTOFF=150); BUPRENORPHINE SCREEN,URINE NEGATIVE (CUTOFF=10); METHADONE SCREEN, URINE NEGATIVE (CUT0FF=200); METHAMPHETAMINES SCREEN, URINE NEGATIVE (CUTOFF=500); OXYCODONE SCREEN,URINE NEGATIVE (CUT0FF=100); THC SCREEN,URINE 20 NG/ML NEGATIVE (CUTOFF=50)
[2023-10-18 20:43] LABS: AMPHETAMINES SCREEN, URINE NEGATIVE (CUTOFF=500)
[2023-10-18 20:43] LABS: BASOPHILS ABSOLUTE AUTO 0.1 K/mm3 (0.0-0.2); BASOPHILS PERCENT AUTO 1.2 % (0.0-1.0); EOSINOPHILS ABSOLUTE AUTO 0.1 K/mm3 (0.0-0.4); EOSINOPHILS PERCENT AUTO 0.9 % (0.0-6.0); HEMATOCRIT 43.9 % (42.0-52.0); HEMOGLOBIN 14.7 gm/dl (14.0-18.0); IMMATURE GRAN ABSOLUTE AUTO 0.01 K/mm3 (0.00-0.05); IMMATURE GRAN PERCENT AUTO 0.1 % (0.0-0.4); LYMPHOCYTES ABSOLUTE AUTO 3.4 K/mm3 (1.0-4.8); LYMPHOCYTES PERCENT AUTO 50.6 % (24.0-44.0); MEAN CORPUSCULAR HEMOGLOBIN 32.2 pg (28.0-32.0); MEAN CORPUSCULAR HGB CONC 33.5 g/dl (32.0-36.0); MEAN CORPUSCULAR VOLUME 96.3 fl (83.0-99.0); MEAN PLATELET VOLUME 9.2 fl (9.4-12.4); MONOCYTES ABSOLUTE AUTO 0.5 K/mm3 (0.0-0.8); MONOCYTES PERCENT AUTO 7.4 % (0.0-8.0); NEUTROPHILS ABSOLUTE AUTO 2.7 K/mm3 (1.8-7.7); NEUTROPHILS PERCENT AUTO 39.8 % (41.0-71.0); PLATELET COUNT,PLT 357 K/mm3 (150-400); RED BLOOD CELL COUNT 4.56 M/mm3 (4.52-5.90); WHITE BLOOD CELL COUNT,WBC 6.78 K/mm3 (3.9-11.3)
[2023-10-18 21:12] LABS: A/G RATIO 1.2 (1-2); ALBUMIN 4.1 g/dl (3.4-5.0); ANION GAP 11.8 (5-15); BILIRUBIN TOTAL 0.3 mg/dL (0.2-1.0); BUN/CREATININE RATIO 6.7 (14-18); CALCIUM 8.7 mg/dL (8.5-10.1); CREATININE 0.9 mg/dL (0.7-1.3); EST CRCL DRUG DOSING (CG) 115.06 mL/min; ETHANOL BLOOD MEDICAL 0.38 gm% (0.00); MAGNESIUM 1.7 mg/dL (1.8-2.4); POTASSIUM,K 3.8 mEq/L (3.5-5.1); PROTEIN TOTAL,TP 7.6 g/dl (6.4-8.2)
[2023-10-18] MEDS: chlordiazePOXIDE 25 MG Cap PO ONE (21:36)
[2023-10-18] MEDS: MVI, Adult with Vitamin K 10 ML in Sodium Chloride 0.9% 1,000 ML IV ONE (21:37)
[2023-10-18] MEDS: Thiamine 100 MG in Sodium Chloride 0.9% 100 ML IV ONE (21:37)
[2023-10-18] MEDS: Magnesium Sulfate/Water 2 GM in Premix Bag 1 BAG IV ONE (21:37)
[2023-10-18] MEDS ORDERED: Magnesium Sulfate (4.06 MEQ/ML) 5 GM/10 ML SDV IV ONE (21:45)
[2023-10-18 22:08] LABS: TSH 0.421 uIU/mL (0.358-3.74)
[2023-10-18] MEDS: Sodium Chloride 0.9% 1,000 ML IV ONE (22:12)
[2023-10-18] MEDS: Folic Acid 50 MG/10 ML MDV SUBCUT ONE (22:36)
[2023-10-19] MEDS ORDERED: LORazepam 0.5 MG Tab PO ONE (07:34)
[2023-10-19] MEDS: LORazepam 1 MG Tab PO ONE (07:48)
[2023-10-19] MEDS: Prochlorperazine 5 MG Tab PO ONE (07:48)
[2023-10-19 12:24] VITALS: BP 120/85; PULSE 89
== END 2023-10-19 12:07 | disposition home or self-care (01) ==
LOC: JD.ED 18:34
DX: F10.229 Alcohol dependence with intoxication, unspecified (principal); F17.210 Nicotine dependence, cigarettes, uncomplicated; Z86.16 Personal history of COVID-19; Z79.899 Other long term (current) drug therapy; Y90.8 Blood alcohol level of 240 mg/100 ml or more
CPT/HCPCS: 36415; 70450; 71045; 72125; 80053; 80143; 80179; 80306; 80307; 81003; 83735; 84443; 85025; 93005; 96365; 96366; 96368; 99284; A9270; J3411; J3475; J3490; J7030; Q0164; 99282

== ENCOUNTER 2023-10-25 16:26 | Emergency (ER) | payer MEDICAID ==
[2023-10-25] MEDS ORDERED: Sodium Chloride 0.9% 10 ML Syringe FLUSH PRN (18:04)
[2023-10-25] MEDS: LORazepam 1 MG Tab PO ONE (18:28)
[2023-10-25 20:01] VITALS: BP 113/78; PULSE 75
== END 2023-10-25 18:40 | disposition home or self-care (01) ==
LOC: JD.ED 16:26
DX: F10.130 Alcohol abuse with withdrawal, uncomplicated (principal); Z86.16 Personal history of COVID-19
CPT/HCPCS: 99283; 99284; A9270-GY

== ENCOUNTER 2023-11-02 17:55 | Emergency (ER) | payer SELFPAY | END 2023-11-02 18:18 | disposition left against medical advice (07) | LOC: JD.ED 17:55 | DX: Z53.21 Procedure and treatment not carried out due to patient leaving prior to being seen by health care provider (principal) ==

== ENCOUNTER 2023-11-03 02:24 | Emergency (ER) | payer SELFPAY ==
[2023-11-03 03:20] LABS: BASOPHILS ABSOLUTE AUTO 0.1 K/mm3 (0.0-0.2); BASOPHILS PERCENT AUTO 0.6 % (0.0-1.0); EOSINOPHILS PERCENT AUTO 0.3 % (0.0-6.0); HEMATOCRIT 42.2 % (42.0-52.0); HEMOGLOBIN 14.3 gm/dl (14.0-18.0); IMMATURE GRAN ABSOLUTE AUTO 0.04 K/mm3 (0.00-0.05); IMMATURE GRAN PERCENT AUTO 0.4 % (0.0-0.4); LYMPHOCYTES ABSOLUTE AUTO 2.9 K/mm3 (1.0-4.8); LYMPHOCYTES PERCENT AUTO 26.6 % (24.0-44.0); MEAN CORPUSCULAR HEMOGLOBIN 32.4 pg (28.0-32.0); MEAN CORPUSCULAR HGB CONC 33.9 g/dl (32.0-36.0); MEAN CORPUSCULAR VOLUME 95.5 fl (83.0-99.0); MEAN PLATELET VOLUME 9.4 fl (9.4-12.4); MONOCYTES ABSOLUTE AUTO 0.7 K/mm3 (0.0-0.8); MONOCYTES PERCENT AUTO 6.4 % (0.0-8.0); NEUTROPHILS ABSOLUTE AUTO 7.3 K/mm3 (1.8-7.7); NEUTROPHILS PERCENT AUTO 65.7 % (41.0-71.0); PLATELET COUNT,PLT 212 K/mm3 (150-400); RED BLOOD CELL COUNT 4.42 M/mm3 (4.52-5.90); WHITE BLOOD CELL COUNT,WBC 11.03 K/mm3 (3.9-11.3)
[2023-11-03 03:48] LABS: A/G RATIO 1.3 (1-2); ANION GAP 16.3 (5-15); BILIRUBIN TOTAL 0.7 mg/dL (0.2-1.0); CALCIUM 8.6 mg/dL (8.5-10.1); CREATININE 0.8 mg/dL (0.7-1.3); EST CRCL DRUG DOSING (CG) 133.79 mL/min; ETHANOL BLOOD MEDICAL 0.15 gm% (0.00); POTASSIUM,K 3.3 mEq/L (3.5-5.1); PROTEIN TOTAL,TP 7.2 g/dl (6.4-8.2); TSH 1.189 uIU/mL (0.358-3.74)
[2023-11-03 03:54] LABS: APPEARANCE,URINE SLT CLOUDY (Clear); BILIRUBIN,URINE 1+ (Negative); COLOR,URINE DARK YELLOW (Yellow); GLUCOSE,URINE NEGATIVE (Negative); KETONES,URINE 1+ (Negative); LEUKOCYTE ESTERASE,URINE 2+ (Negative); NITRITE,URINE NEGATIVE (Negative); OCCULT BLOOD,URINE NEGATIVE (Negative); PH,URINE 8.5 (5.0-8.0); PROTEIN,URINE 1+ (Negative)
[2023-11-03 04:05] LABS: BACTERIA,URINE MODERATE /hpf (FEW); BARBITURATE SCREEN,URINE NEGATIVE (CUTOFF=200); BENZODIAZEPINES SCREEN,URINE PRESUMPTIVE POSITIVE (CUTOFF=150); BUPRENORPHINE SCREEN,URINE NEGATIVE (CUTOFF=10); EPITHELIAL CELLS,URINE 0-5 /hpf (0-5); METHADONE SCREEN, URINE NEGATIVE (CUT0FF=200); METHAMPHETAMINES SCREEN, URINE NEGATIVE (CUTOFF=500); OXYCODONE SCREEN,URINE NEGATIVE (CUT0FF=100); RBC,URINE 0-5 /hpf (0-5); THC SCREEN,URINE 20 NG/ML NEGATIVE (CUTOFF=50)
[2023-11-03 04:06] LABS: AMORPHOUS SEDIMENT,URINE MANY /hpf (NOT SEEN); MUCUS,URINE MODERATE /hpf (FEW)
[2023-11-03 04:07] LABS: AMPHETAMINES SCREEN, URINE NEGATIVE (CUTOFF=500)
[2023-11-03] MEDS: LORazepam 2 MG/ML SDV IV PRN (04:30)
[2023-11-03] MEDS: Thiamine 200 MG/2 ML MDV IVPUSH SCH (04:33)
[2023-11-03] MEDS: Sodium Chloride 0.9% 10 ML Syringe FLUSH PRN (05:00)
[2023-11-03] MEDS: Levofloxacin 250 MG Tab PO ONE (07:18)
[2023-11-03] MEDS: LORazepam 2 MG/ML SDV IVPUSH ONE (10:05)
[2023-11-03 12:35] VITALS: BP 121/81; PULSE 66
== END 2023-11-03 12:16 | disposition home or self-care (01) ==
LOC: JD.ED 02:24
DX: N30.00 Acute cystitis without hematuria (principal); F10.230 Alcohol dependence with withdrawal, uncomplicated; F17.210 Nicotine dependence, cigarettes, uncomplicated; Z86.16 Personal history of COVID-19
CPT/HCPCS: 36415; 80053; 80143; 80179; 80306; 80307; 81001; 84443; 85025; 87086; 96374; 96375; 96376; 99284; A9270; J2060; J3411; J3490; 87088; 87186

== ENCOUNTER 2023-11-19 19:35 | Emergency (ER) | payer SELFPAY ==
[2023-11-19 20:20] LABS: BASOPHILS ABSOLUTE AUTO 0.1 K/mm3 (0.0-0.2); BASOPHILS PERCENT AUTO 1.5 % (0.0-1.0); EOSINOPHILS PERCENT AUTO 0.6 % (0.0-6.0); HEMATOCRIT 44.3 % (42.0-52.0); HEMOGLOBIN 14.8 gm/dl (14.0-18.0); LYMPHOCYTES ABSOLUTE AUTO 1.7 K/mm3 (1.0-4.8); LYMPHOCYTES PERCENT AUTO 32.3 % (24.0-44.0); MEAN CORPUSCULAR HEMOGLOBIN 32.7 pg (28.0-32.0); MEAN CORPUSCULAR HGB CONC 33.4 g/dl (32.0-36.0); MEAN CORPUSCULAR VOLUME 97.8 fl (83.0-99.0); MEAN PLATELET VOLUME 9.1 fl (9.4-12.4); MONOCYTES ABSOLUTE AUTO 0.2 K/mm3 (0.0-0.8); MONOCYTES PERCENT AUTO 4.4 % (0.0-8.0); NEUTROPHILS ABSOLUTE AUTO 3.2 K/mm3 (1.8-7.7); NEUTROPHILS PERCENT AUTO 61.2 % (41.0-71.0); PLATELET COUNT,PLT 315 K/mm3 (150-400); RED BLOOD CELL COUNT 4.53 M/mm3 (4.52-5.90); WHITE BLOOD CELL COUNT,WBC 5.24 K/mm3 (3.9-11.3)
[2023-11-19 20:50] LABS: A/G RATIO 1.2 (1-2); ALBUMIN 3.9 g/dl (3.4-5.0); ANION GAP 13.5 (5-15); BILIRUBIN TOTAL 0.3 mg/dL (0.2-1.0); BUN/CREATININE RATIO 6.3 (14-18); CALCIUM 8.1 mg/dL (8.5-10.1); CREATININE 0.8 mg/dL (0.7-1.3); EST CRCL DRUG DOSING (CG) 151.2 mL/min; ETHANOL BLOOD MEDICAL 0.43 gm% (0.00); POTASSIUM,K 3.5 mEq/L (3.5-5.1); PROTEIN TOTAL,TP 7.2 g/dl (6.4-8.2); TSH 0.408 uIU/mL (0.358-3.74)
[2023-11-20 00:25] LABS: BARBITURATE SCREEN,URINE NEGATIVE (CUTOFF=200); BENZODIAZEPINES SCREEN,URINE PRESUMPTIVE POSITIVE (CUTOFF=150); BUPRENORPHINE SCREEN,URINE NEGATIVE (CUTOFF=10); METHADONE SCREEN, URINE NEGATIVE (CUT0FF=200); METHAMPHETAMINES SCREEN, URINE NEGATIVE (CUTOFF=500); OXYCODONE SCREEN,URINE NEGATIVE (CUT0FF=100); THC SCREEN,URINE 20 NG/ML NEGATIVE (CUTOFF=50)
[2023-11-20 00:38] LABS: AMPHETAMINES SCREEN, URINE NEGATIVE (CUTOFF=500)
[2023-11-20 07:00] VITALS: BP 130/85; PULSE 99
== END 2023-11-20 07:01 | disposition home or self-care (01) ==
LOC: JD.ED 19:35
DX: F10.120 Alcohol abuse with intoxication, uncomplicated (principal); F41.9 Anxiety disorder, unspecified; Z79.899 Other long term (current) drug therapy
CPT/HCPCS: 36415; 80053; 80143; 80179; 80306; 80307; 84443; 85025; 99282; 99284

== ENCOUNTER 2023-11-20 07:19 | Emergency (ER) | payer SELFPAY ==
[2023-11-20] MEDS ORDERED: Sodium Chloride 0.9% 10 ML Syringe FLUSH PRN ×2 (07:37)
[2023-11-20] MEDS: LORazepam 2 MG/ML SDV IVPUSH ONE (07:52)
[2023-11-20 07:53] LABS: BASOPHILS ABSOLUTE AUTO 0.1 K/mm3 (0.0-0.2); BASOPHILS PERCENT AUTO 1.5 % (0.0-1.0); EOSINOPHILS ABSOLUTE AUTO 0.1 K/mm3 (0.0-0.4); EOSINOPHILS PERCENT AUTO 1.2 % (0.0-6.0); HEMATOCRIT 45.2 % (42.0-52.0); HEMOGLOBIN 15.1 gm/dl (14.0-18.0); LYMPHOCYTES ABSOLUTE AUTO 3.4 K/mm3 (1.0-4.8); LYMPHOCYTES PERCENT AUTO 50.7 % (24.0-44.0); MEAN CORPUSCULAR HEMOGLOBIN 32.6 pg (28.0-32.0); MEAN CORPUSCULAR HGB CONC 33.4 g/dl (32.0-36.0); MEAN CORPUSCULAR VOLUME 97.6 fl (83.0-99.0); MEAN PLATELET VOLUME 9.3 fl (9.4-12.4); MONOCYTES ABSOLUTE AUTO 0.4 K/mm3 (0.0-0.8); MONOCYTES PERCENT AUTO 5.2 % (0.0-8.0); NEUTROPHILS ABSOLUTE AUTO 2.8 K/mm3 (1.8-7.7); NEUTROPHILS PERCENT AUTO 41.4 % (41.0-71.0); PLATELET COUNT,PLT 333 K/mm3 (150-400); RED BLOOD CELL COUNT 4.63 M/mm3 (4.52-5.90); WHITE BLOOD CELL COUNT,WBC 6.75 K/mm3 (3.9-11.3)
[2023-11-20] MEDS: Sodium Chloride 0.9% 1,000 ML IV SCH (07:53)
[2023-11-20 08:06] LABS: PROTHROMBIN TIME 10.6 SECONDS (9.7-12.0)
[2023-11-20 08:25] LABS: A/G RATIO 1.1 (1-2); ANION GAP 12.6 (5-15); BILIRUBIN TOTAL 0.5 mg/dL (0.2-1.0); BUN/CREATININE RATIO 11.4 (14-18); CALCIUM 8.7 mg/dL (8.5-10.1); CREATININE 0.7 mg/dL (0.7-1.3); EST CRCL DRUG DOSING (CG) 152.05 mL/min; ETHANOL BLOOD MEDICAL 0.18 gm% (0.00); MAGNESIUM 1.3 mg/dL (1.8-2.4); POTASSIUM,K 3.6 mEq/L (3.5-5.1); PROTEIN TOTAL,TP 7.5 g/dl (6.4-8.2)
[2023-11-20] MEDS: Ondansetron 4 MG/2 ML SDV IVPUSH ONE (10:40)
[2023-11-20 12:08] VITALS: BP 117/77; PULSE 92
== END 2023-11-20 11:46 | disposition home or self-care (01) ==
LOC: JD.ED 07:19
DX: F10.130 Alcohol abuse with withdrawal, uncomplicated (principal); Z86.16 Personal history of COVID-19; Z87.891 Personal history of nicotine dependence; Z79.899 Other long term (current) drug therapy
CPT/HCPCS: 36415; 80053; 80307; 82150; 83690; 83735; 85025; 85610; 96361; 96374; 96375; 99284; J2060; J2405; J7030

== ENCOUNTER 2023-11-29 15:09 | Emergency (ER) | payer SELFPAY ==
[2023-11-29] MEDS ORDERED: Sodium Chloride 0.9% 1,000 ML IV SCH (15:45)
[2023-11-29 16:12] LABS: BASOPHILS ABSOLUTE AUTO 0.1 K/mm3 (0.0-0.2); BASOPHILS PERCENT AUTO 0.8 % (0.0-1.0); EOSINOPHILS PERCENT AUTO 0.3 % (0.0-6.0); HEMATOCRIT 44.2 % (42.0-52.0); HEMOGLOBIN 14.8 gm/dl (14.0-18.0); IMMATURE GRAN ABSOLUTE AUTO 0.01 K/mm3 (0.00-0.05); IMMATURE GRAN PERCENT AUTO 0.2 % (0.0-0.4); LYMPHOCYTES ABSOLUTE AUTO 2.5 K/mm3 (1.0-4.8); MEAN CORPUSCULAR HEMOGLOBIN 32.9 pg (28.0-32.0); MEAN CORPUSCULAR HGB CONC 33.5 g/dl (32.0-36.0); MEAN CORPUSCULAR VOLUME 98.2 fl (83.0-99.0); MEAN PLATELET VOLUME 9.5 fl (9.4-12.4); MONOCYTES ABSOLUTE AUTO 0.4 K/mm3 (0.0-0.8); MONOCYTES PERCENT AUTO 5.9 % (0.0-8.0); NEUTROPHILS ABSOLUTE AUTO 3.1 K/mm3 (1.8-7.7); NEUTROPHILS PERCENT AUTO 51.8 % (41.0-71.0); PLATELET COUNT,PLT 246 K/mm3 (150-400); WHITE BLOOD CELL COUNT,WBC 5.98 K/mm3 (3.9-11.3)
[2023-11-29 16:32] LABS: INR 1.04
[2023-11-29 16:38] LABS: A/G RATIO 1.2 (1-2); ALBUMIN 4.1 g/dl (3.4-5.0); ANION GAP 16.5 (5-15); BILIRUBIN TOTAL 0.3 mg/dL (0.2-1.0); BUN/CREATININE RATIO 14.3 (14-18); CALCIUM 8.4 mg/dL (8.5-10.1); CREATININE 0.7 mg/dL (0.7-1.3); EST CRCL DRUG DOSING (CG) 147.93 mL/min; ETHANOL BLOOD MEDICAL 0.37 gm% (0.00); MAGNESIUM 1.8 mg/dL (1.8-2.4); POTASSIUM,K 3.5 mEq/L (3.5-5.1); PROTEIN TOTAL,TP 7.6 g/dl (6.4-8.2)
[2023-11-30 06:44] VITALS: BP 116/78; PULSE 68
== END 2023-11-30 06:44 | disposition home or self-care (01) ==
LOC: JD.ED 15:09
DX: E86.0 Dehydration (principal); F10.920 Alcohol use, unspecified with intoxication, uncomplicated; Z86.16 Personal history of COVID-19; Z79.899 Other long term (current) drug therapy
CPT/HCPCS: 36415; 80053; 80307; 83735; 85025; 85610; 99284

== ENCOUNTER 2023-12-07 04:58 | Emergency (ER) | payer SELFPAY ==
[2023-12-07] MEDS: Ondansetron 4 MG/2 ML SDV IVPUSH ONE (05:35)
[2023-12-07] MEDS: LORazepam 2 MG/ML SDV IVPUSH ONE ×2 (05:36→05:53)
[2023-12-07] MEDS: Famotidine 20 MG/2 ML SDV IVPUSH ONE (05:38)
[2023-12-07] MEDS: Sodium Chloride 0.9% 10 ML Syringe FLUSH PRN (05:40)
[2023-12-07 05:47] LABS: BARBITURATE SCREEN,URINE NEGATIVE (CUTOFF=200); BENZODIAZEPINES SCREEN,URINE PRESUMPTIVE POSITIVE (CUTOFF=150); BUPRENORPHINE SCREEN,URINE NEGATIVE (CUTOFF=10); METHADONE SCREEN, URINE NEGATIVE (CUT0FF=200); METHAMPHETAMINES SCREEN, URINE NEGATIVE (CUTOFF=500); OXYCODONE SCREEN,URINE NEGATIVE (CUT0FF=100); THC SCREEN,URINE 20 NG/ML NEGATIVE (CUTOFF=50)
[2023-12-07 05:48] LABS: BASOPHILS ABSOLUTE AUTO 0.1 K/mm3 (0.0-0.2); BASOPHILS PERCENT AUTO 0.8 % (0.0-1.0); EOSINOPHILS PERCENT AUTO 0.3 % (0.0-6.0); HEMATOCRIT 42.5 % (42.0-52.0); IMMATURE GRAN ABSOLUTE AUTO 0.03 K/mm3 (0.00-0.05); IMMATURE GRAN PERCENT AUTO 0.3 % (0.0-0.4); LYMPHOCYTES ABSOLUTE AUTO 2.6 K/mm3 (1.0-4.8); LYMPHOCYTES PERCENT AUTO 23.6 % (24.0-44.0); MEAN CORPUSCULAR HEMOGLOBIN 33.5 pg (28.0-32.0); MEAN CORPUSCULAR HGB CONC 35.3 g/dl (32.0-36.0); MEAN CORPUSCULAR VOLUME 94.9 fl (83.0-99.0); MEAN PLATELET VOLUME 9.5 fl (9.4-12.4); MONOCYTES ABSOLUTE AUTO 0.8 K/mm3 (0.0-0.8); NEUTROPHILS ABSOLUTE AUTO 7.6 K/mm3 (1.8-7.7); PLATELET COUNT,PLT 288 K/mm3 (150-400); RED BLOOD CELL COUNT 4.48 M/mm3 (4.52-5.90); WHITE BLOOD CELL COUNT,WBC 11.11 K/mm3 (3.9-11.3)
[2023-12-07 05:50] LABS: AMPHETAMINES SCREEN, URINE NEGATIVE (CUTOFF=500)
[2023-12-07 06:06] LABS: A/G RATIO 1.2 (1-2); ALBUMIN 3.9 g/dl (3.4-5.0); ANION GAP 16.3 (5-15); BILIRUBIN TOTAL 0.5 mg/dL (0.2-1.0); BUN/CREATININE RATIO 12.9 (14-18); CALCIUM 8.6 mg/dL (8.5-10.1); CREATININE 0.7 mg/dL (0.7-1.3); EST CRCL DRUG DOSING (CG) 137.98 mL/min; ETHANOL BLOOD MEDICAL 0.09 gm% (0.00); POTASSIUM,K 3.3 mEq/L (3.5-5.1); PROTEIN TOTAL,TP 7.3 g/dl (6.4-8.2)
[2023-12-07 06:51] VITALS: BP 120/73; PULSE 67
== END 2023-12-07 08:11 | disposition other institution (70) ==
LOC: JD.ED 04:58
DX: F10.930 Alcohol use, unspecified with withdrawal, uncomplicated (principal); N17.9 Acute kidney failure, unspecified; Z86.16 Personal history of COVID-19; F17.210 Nicotine dependence, cigarettes, uncomplicated
CPT/HCPCS: 36415; 80053; 80306; 80307; 85025; 93005; 96374; 96375; 99284-25; J2060; J2405; J3490

== ENCOUNTER 2023-12-16 12:12 | Emergency (ER) | payer SELFPAY ==
[2023-12-16 12:56] LABS: BASOPHILS ABSOLUTE AUTO 0.1 K/mm3 (0.0-0.2); BASOPHILS PERCENT AUTO 1.2 % (0.0-1.0); EOSINOPHILS PERCENT AUTO 0.2 % (0.0-6.0); HEMATOCRIT 44.4 % (42.0-52.0); HEMOGLOBIN 15.4 gm/dl (14.0-18.0); IMMATURE GRAN ABSOLUTE AUTO 0.01 K/mm3 (0.00-0.05); IMMATURE GRAN PERCENT AUTO 0.2 % (0.0-0.4); LYMPHOCYTES ABSOLUTE AUTO 1.5 K/mm3 (1.0-4.8); MEAN CORPUSCULAR HEMOGLOBIN 32.8 pg (28.0-32.0); MEAN CORPUSCULAR HGB CONC 34.7 g/dl (32.0-36.0); MEAN CORPUSCULAR VOLUME 94.5 fl (83.0-99.0); MEAN PLATELET VOLUME 9.3 fl (9.4-12.4); MONOCYTES ABSOLUTE AUTO 0.5 K/mm3 (0.0-0.8); MONOCYTES PERCENT AUTO 7.5 % (0.0-8.0); NEUTROPHILS ABSOLUTE AUTO 3.9 K/mm3 (1.8-7.7); NEUTROPHILS PERCENT AUTO 65.9 % (41.0-71.0); PLATELET COUNT,PLT 264 K/mm3 (150-400); WHITE BLOOD CELL COUNT,WBC 5.97 K/mm3 (3.9-11.3)
[2023-12-16] MEDS: Sodium Chloride 0.9% 1,000 ML IV SCH (13:00)
[2023-12-16] MEDS: Ondansetron 4 MG/2 ML SDV IVPUSH ONE (13:02)
[2023-12-16] MEDS: LORazepam 2 MG/ML SDV IVPUSH ONE (13:02)
[2023-12-16] MEDS: Sodium Chloride 0.9% 10 ML Syringe FLUSH PRN (13:02)
[2023-12-16 13:25] LABS: A/G RATIO 1.1 (1-2); ALBUMIN 4.2 g/dl (3.4-5.0); ANION GAP 14.6 (5-15); BILIRUBIN TOTAL 0.9 mg/dL (0.2-1.0); BUN/CREATININE RATIO 12.2 (14-18); CALCIUM 9.4 mg/dL (8.5-10.1); CREATININE 0.9 mg/dL (0.7-1.3); EST CRCL DRUG DOSING (CG) 117.41 mL/min; MAGNESIUM 1.3 mg/dL (1.8-2.4); POTASSIUM,K 3.6 mEq/L (3.5-5.1); PROTEIN TOTAL,TP 7.9 g/dl (6.4-8.2)
[2023-12-16 14:01] LABS: BARBITURATE SCREEN,URINE NEGATIVE (CUTOFF=200); BENZODIAZEPINES SCREEN,URINE PRESUMPTIVE POSITIVE (CUTOFF=150); BUPRENORPHINE SCREEN,URINE NEGATIVE (CUTOFF=10); METHADONE SCREEN, URINE NEGATIVE (CUT0FF=200); METHAMPHETAMINES SCREEN, URINE NEGATIVE (CUTOFF=500); OXYCODONE SCREEN,URINE NEGATIVE (CUT0FF=100); THC SCREEN,URINE 20 NG/ML NEGATIVE (CUTOFF=50)
[2023-12-16 14:27] LABS: AMPHETAMINES SCREEN, URINE NEGATIVE (CUTOFF=500)
[2023-12-16 15:19] VITALS: BP 121/77; PULSE 68
== END 2023-12-16 15:18 | disposition home or self-care (01) ==
LOC: JD.ED 12:12
DX: F10.230 Alcohol dependence with withdrawal, uncomplicated (principal); Z86.16 Personal history of COVID-19; Z79.899 Other long term (current) drug therapy
CPT/HCPCS: 36415; 71045; 80053; 80306; 80307; 83735; 84484; 85025; 93005; 96361; 96374; 96375; 99285; J2060; J2405; J3490; J7030; 93010; 99284

== ENCOUNTER 2023-12-20 19:27 | Emergency (ER) | payer SELFPAY ==
[2023-12-20] MEDS: LORazepam 2 MG/ML SDV IV ONE (20:02)
[2023-12-20] MEDS: Sodium Chloride 0.9% 1,000 ML IV ONE (20:02)
[2023-12-20] MEDS: Sodium Chloride 0.9% 10 ML Syringe FLUSH PRN (20:03)
[2023-12-20 20:05] LABS: BASOPHILS ABSOLUTE AUTO 0.1 K/mm3 (0.0-0.2); BASOPHILS PERCENT AUTO 1.4 % (0.0-1.0); EOSINOPHILS PERCENT AUTO 0.3 % (0.0-6.0); HEMATOCRIT 48.9 % (42.0-52.0); HEMOGLOBIN 16.7 gm/dl (14.0-18.0); IMMATURE GRAN ABSOLUTE AUTO 0.01 K/mm3 (0.00-0.05); IMMATURE GRAN PERCENT AUTO 0.2 % (0.0-0.4); LYMPHOCYTES ABSOLUTE AUTO 2.4 K/mm3 (1.0-4.8); LYMPHOCYTES PERCENT AUTO 41.5 % (24.0-44.0); MEAN CORPUSCULAR HEMOGLOBIN 32.4 pg (28.0-32.0); MEAN CORPUSCULAR HGB CONC 34.2 g/dl (32.0-36.0); MEAN PLATELET VOLUME 9.2 fl (9.4-12.4); MONOCYTES ABSOLUTE AUTO 0.3 K/mm3 (0.0-0.8); MONOCYTES PERCENT AUTO 5.3 % (0.0-8.0); NEUTROPHILS PERCENT AUTO 51.3 % (41.0-71.0); PLATELET COUNT,PLT 291 K/mm3 (150-400); RED BLOOD CELL COUNT 5.15 M/mm3 (4.52-5.90); WHITE BLOOD CELL COUNT,WBC 5.85 K/mm3 (3.9-11.3)
[2023-12-20 20:28] LABS: A/G RATIO 1.1 (1-2); ALBUMIN 4.4 g/dl (3.4-5.0); ANION GAP 16.6 (5-15); BILIRUBIN TOTAL 0.5 mg/dL (0.2-1.0); BUN/CREATININE RATIO 12.2 (14-18); CALCIUM 8.9 mg/dL (8.5-10.1); CREATININE 0.9 mg/dL (0.7-1.3); EST CRCL DRUG DOSING (CG) 114.45 mL/min; ETHANOL BLOOD MEDICAL 0.28 gm% (0.00); MAGNESIUM 1.6 mg/dL (1.8-2.4); POTASSIUM,K 3.6 mEq/L (3.5-5.1); PROTEIN TOTAL,TP 8.3 g/dl (6.4-8.2)
[2023-12-20 21:40] LABS: APPEARANCE,URINE CLEAR (Clear); BILIRUBIN,URINE NEGATIVE (Negative); COLOR,URINE YELLOW (Yellow); GLUCOSE,URINE TRACE (Negative); KETONES,URINE 1+ (Negative); LEUKOCYTE ESTERASE,URINE NEGATIVE (Negative); NITRITE,URINE NEGATIVE (Negative); OCCULT BLOOD,URINE NEGATIVE (Negative); PROTEIN,URINE 2+ (Negative)
[2023-12-20 21:52] LABS: BARBITURATE SCREEN,URINE NEGATIVE (CUTOFF=200); BENZODIAZEPINES SCREEN,URINE PRESUMPTIVE POSITIVE (CUTOFF=150); BUPRENORPHINE SCREEN,URINE NEGATIVE (CUTOFF=10); METHADONE SCREEN, URINE NEGATIVE (CUT0FF=200); METHAMPHETAMINES SCREEN, URINE NEGATIVE (CUTOFF=500); OXYCODONE SCREEN,URINE NEGATIVE (CUT0FF=100); THC SCREEN,URINE 20 NG/ML NEGATIVE (CUTOFF=50)
[2023-12-20 21:53] LABS: AMPHETAMINES SCREEN, URINE NEGATIVE (CUTOFF=500)
[2023-12-20 22:08] LABS: AMORPHOUS SEDIMENT,URINE FEW /hpf (NOT SEEN); BACTERIA,URINE FEW /hpf (FEW); MUCUS,URINE MANY /hpf (FEW); RBC,URINE 0-5 /hpf (0-5); SQUAMOUS EPITHELIAL CELLS,UR 0-5 /hpf (0-5)
[2023-12-20] MEDS: Magnesium Oxide 400 MG Tab PO ONE (22:23)
[2023-12-20 22:31] VITALS: BP 120/77; PULSE 105
== END 2023-12-20 22:28 | disposition home or self-care (01) ==
LOC: JD.ED 19:27
DX: F10.930 Alcohol use, unspecified with withdrawal, uncomplicated (principal); F17.210 Nicotine dependence, cigarettes, uncomplicated; Z86.16 Personal history of COVID-19
CPT/HCPCS: 36415; 80053; 80306; 80307; 81001; 83735; 85025; 93005; 96374; 99285; A9270; J2060; J3490; J7030

== ENCOUNTER 2024-01-01 14:29 | Emergency (ER) | payer MEDICAID ==
[2024-01-01 15:09] VITALS: BP 132/87; PULSE 104
== END 2024-01-01 16:41 | disposition left against medical advice (07) ==
LOC: JD.ED 14:29
DX: Z53.21 Procedure and treatment not carried out due to patient leaving prior to being seen by health care provider (principal)

== ENCOUNTER 2024-01-01 18:40 | Emergency (ER) | payer MEDICAID ==
[2024-01-01 18:58] VITALS: BP 123/79; PULSE 102
[2024-01-01 19:57] LABS: HEMATOCRIT 45.9 % (42.0-52.0); HEMOGLOBIN 15.4 gm/dl (14.0-18.0); MEAN CORPUSCULAR HEMOGLOBIN 32.9 pg (28.0-32.0); MEAN CORPUSCULAR HGB CONC 33.6 g/dl (32.0-36.0); MEAN CORPUSCULAR VOLUME 98.1 fl (83.0-99.0); MEAN PLATELET VOLUME 9.5 fl (9.4-12.4); PLATELET COUNT,PLT 294 K/mm3 (150-400); RED BLOOD CELL COUNT 4.68 M/mm3 (4.52-5.90); WHITE BLOOD CELL COUNT,WBC 6.14 K/mm3 (3.9-11.3)
[2024-01-01 20:26] LABS: A/G RATIO 1.1 (1-2); ALANINE AMINOTRANSFERASE,ALT 41 U/L (16-63); ALBUMIN 4.4 g/dl (3.4-5.0); ALKALINE PHOSPHATASE 134 U/L (46-116); ANION GAP 13.1 (5-15); ASPARTATE AMNIOTRANSFERASE,AST 40 U/L (15-37); BILIRUBIN TOTAL 0.3 mg/dL (0.2-1.0); BLOOD UREA NITROGEN,BUN 8 mg/dL (7-18); BUN/CREATININE RATIO 8.9 (14-18); CALCIUM 8.8 mg/dL (8.5-10.1); CARBON DIOXIDE,CO2 33 mEq/L (21-32); CHLORIDE,CL 105 mEq/L (98-107); CREATININE 0.9 mg/dL (0.7-1.3); ESTIMATED GFR 117 mL/min (>60); ETHANOL BLOOD MEDICAL 0.42 gm% (0.00); GLUCOSE RANDOM 102 mg/dL (70-99); POTASSIUM,K 4.1 mEq/L (3.5-5.1); PROTEIN TOTAL,TP 8.3 g/dl (6.4-8.2); SODIUM,NA 147 mEq/L (136-145); TSH 0.573 uIU/mL (0.358-3.74)
[2024-01-01 21:04] LABS: BARBITURATE SCREEN,URINE NEGATIVE (CUTOFF=200); BENZODIAZEPINES SCREEN,URINE NEGATIVE (CUTOFF=150); BUPRENORPHINE SCREEN,URINE NEGATIVE (CUTOFF=10); METHADONE SCREEN, URINE NEGATIVE (CUT0FF=200); METHAMPHETAMINES SCREEN, URINE NEGATIVE (CUTOFF=500); OXYCODONE SCREEN,URINE NEGATIVE (CUT0FF=100); THC SCREEN,URINE 20 NG/ML NEGATIVE (CUTOFF=50)
[2024-01-01 21:08] LABS: BAND PERCENT MAN 0 % (0-10); BASOPHILS PERCENT MAN 0 (0.2-1.2); EOSINOPHILS PERCENT MAN 0 % (0.8-7.0); LYMPHOCYTES % ATYPICAL MANUAL 0 %; LYMPHOCYTES PERCENT MAN 53 % (20-40); MONOCYTES PERCENT MAN 4 % (2-10); PLATELET COUNT ESTIMATE ADEQUATE
[2024-01-01 21:14] LABS: ACETAMINOPHEN 0 ug/mL (10-30)
[2024-01-01 21:15] LABS: AMPHETAMINES SCREEN, URINE NEGATIVE (CUTOFF=500)
[2024-01-02] MEDS ORDERED: Ondansetron 4 MG Tab.DIS PO ONE (06:05)
[2024-01-02] MEDS ORDERED: LORazepam 2 MG/ML SDV IVPUSH ONE (06:05)
[2024-01-02] MEDS ORDERED: LORazepam 1 MG Tab PO ONE (06:09)
== END 2024-01-02 06:52 ==
LOC: JD.ED 18:40
DX: F10.129 Alcohol abuse with intoxication, unspecified (principal); Z79.899 Other long term (current) drug therapy; Y90.7 Blood alcohol level of 200-239 mg/100 ml
CPT/HCPCS: 36415; 80053; 80143; 80179; 80306; 80307; 84443; 85007; 85027; 93005; 93010; 99284

== ENCOUNTER 2024-02-10 12:15 | Emergency (ER) | payer MEDICAID ==
[2024-02-10] MEDS ORDERED: Sodium Chloride 0.9% 10 ML Syringe FLUSH PRN (12:41)
[2024-02-10 13:13] LABS: HEMOGLOBIN 15.8 gm/dl (14.0-18.0); MEAN CORPUSCULAR HEMOGLOBIN 33.4 pg (28.0-32.0); MEAN CORPUSCULAR HGB CONC 33.6 g/dl (32.0-36.0); MEAN CORPUSCULAR VOLUME 99.4 fl (83.0-99.0); PLATELET COUNT,PLT 274 K/mm3 (150-400); RED BLOOD CELL COUNT 4.73 M/mm3 (4.52-5.90); WHITE BLOOD CELL COUNT,WBC 8.87 K/mm3 (3.9-11.3)
[2024-02-10] MEDS: Sodium Chloride 0.9% 1,000 ML IV STA (13:19)
[2024-02-10 13:37] LABS: BARBITURATE SCREEN,URINE NEGATIVE (CUTOFF=200); BENZODIAZEPINES SCREEN,URINE NEGATIVE (CUTOFF=150); BUPRENORPHINE SCREEN,URINE NEGATIVE (CUTOFF=10); METHADONE SCREEN, URINE NEGATIVE (CUT0FF=200); METHAMPHETAMINES SCREEN, URINE NEGATIVE (CUTOFF=500); OXYCODONE SCREEN,URINE NEGATIVE (CUT0FF=100); THC SCREEN,URINE 20 NG/ML PRESUMPTIVE POSITIVE (CUTOFF=50)
[2024-02-10 13:41] LABS: A/G RATIO 1.1 (1-2); ANION GAP 13.5 (5-15); BILIRUBIN TOTAL 0.8 mg/dL (0.2-1.0); BUN/CREATININE RATIO 13.3 (14-18); CREATININE 0.9 mg/dL (0.7-1.3); EST CRCL DRUG DOSING (CG) 117.83 mL/min; POTASSIUM,K 3.5 mEq/L (3.5-5.1); PROTEIN TOTAL,TP 7.6 g/dl (6.4-8.2); TSH 0.791 uIU/mL (0.358-3.74)
[2024-02-10 13:44] LABS: AMPHETAMINES SCREEN, URINE NEGATIVE (CUTOFF=500)
[2024-02-10 14:08] LABS: BAND PERCENT MAN 0 % (0-10); BASOPHILS PERCENT MAN 0 (0.2-1.2); EOSINOPHILS PERCENT MAN 2 % (0.8-7.0); LYMPHOCYTES % ATYPICAL MANUAL 0 %; LYMPHOCYTES PERCENT MAN 23 % (20-40); MONOCYTES PERCENT MAN 8 % (2-10)
[2024-02-10 14:09] LABS: OVALOCYTES 1+ SLIGHT; PLATELET COUNT ESTIMATE ADEQUATE; STOMATOCYTES 1+ SLIGHT; TARGET CELLS 1+ SLIGHT
[2024-02-10] MEDS: LORazepam 2 MG/ML SDV IVPUSH ONE (14:22)
[2024-02-10] MEDS: Ondansetron 4 MG/2 ML SDV IVPUSH ONE (14:22)
[2024-02-10 15:11] VITALS: BP 118/77; PULSE 73
== END 2024-02-10 15:05 | disposition home or self-care (01) ==
LOC: JD.ED 12:15
DX: F10.10 Alcohol abuse, uncomplicated (principal); F17.210 Nicotine dependence, cigarettes, uncomplicated; Z86.16 Personal history of COVID-19
CPT/HCPCS: 36415; 80053; 80143; 80179; 80306; 80307; 84443; 85007; 85027; 93005; 96361; 96374; 96375; 99284; J2060; J2405; J7030

== ENCOUNTER 2024-02-17 11:39 | Emergency (ER) | payer MEDICAID ==
[2024-02-17] MEDS: Metoclopramide 10 MG/2 ML SDV IVPUSH ONE (12:48)
[2024-02-17] MEDS: Sodium Chloride 0.9% 1,000 ML IV SCH (12:48)
[2024-02-17 12:49] LABS: BASOPHILS ABSOLUTE AUTO 0.1 K/mm3 (0.0-0.2); BASOPHILS PERCENT AUTO 0.6 % (0.0-1.0); EOSINOPHILS PERCENT AUTO 0.1 % (0.0-6.0); HEMOGLOBIN 15.2 gm/dl (14.0-18.0); IMMATURE GRAN ABSOLUTE AUTO 0.04 K/mm3 (0.00-0.05); IMMATURE GRAN PERCENT AUTO 0.4 % (0.0-0.4); LYMPHOCYTES ABSOLUTE AUTO 1.8 K/mm3 (1.0-4.8); LYMPHOCYTES PERCENT AUTO 16.1 % (24.0-44.0); MEAN CORPUSCULAR HEMOGLOBIN 33.1 pg (28.0-32.0); MEAN CORPUSCULAR HGB CONC 33.8 g/dl (32.0-36.0); MEAN PLATELET VOLUME 9.8 fl (9.4-12.4); MONOCYTES ABSOLUTE AUTO 0.6 K/mm3 (0.0-0.8); MONOCYTES PERCENT AUTO 5.3 % (0.0-8.0); NEUTROPHILS ABSOLUTE AUTO 8.8 K/mm3 (1.8-7.7); NEUTROPHILS PERCENT AUTO 77.5 % (41.0-71.0); PLATELET COUNT,PLT 285 K/mm3 (150-400); RED BLOOD CELL COUNT 4.59 M/mm3 (4.52-5.90); WHITE BLOOD CELL COUNT,WBC 11.29 K/mm3 (3.9-11.3)
[2024-02-17] MEDS: diphenhydrAMINE 50 MG/ML SDV IVPUSH ONE (12:49)
[2024-02-17] MEDS: LORazepam 2 MG/ML SDV IVPUSH ONE (12:49)
[2024-02-17 13:16] LABS: BARBITURATE SCREEN,URINE NEGATIVE (CUTOFF=200); BENZODIAZEPINES SCREEN,URINE NEGATIVE (CUTOFF=150); BUPRENORPHINE SCREEN,URINE NEGATIVE (CUTOFF=10); METHADONE SCREEN, URINE NEGATIVE (CUT0FF=200); METHAMPHETAMINES SCREEN, URINE NEGATIVE (CUTOFF=500); OXYCODONE SCREEN,URINE NEGATIVE (CUT0FF=100); THC SCREEN,URINE 20 NG/ML NEGATIVE (CUTOFF=50)
[2024-02-17 13:19] LABS: A/G RATIO 1.2 (1-2); ALBUMIN 4.3 g/dl (3.4-5.0); ANION GAP 17.4 (5-15); BILIRUBIN TOTAL 1.6 mg/dL (0.2-1.0); BUN/CREATININE RATIO 17.5 (14-18); CALCIUM 9.1 mg/dL (8.5-10.1); CREATININE 0.8 mg/dL (0.7-1.3); EST CRCL DRUG DOSING (CG) 132.56 mL/min; POTASSIUM,K 3.4 mEq/L (3.5-5.1); TSH 0.651 uIU/mL (0.358-3.74)
[2024-02-17 13:26] LABS: AMPHETAMINES SCREEN, URINE NEGATIVE (CUTOFF=500)
[2024-02-17] MEDS: Lactated Ringers 1,000 ML IV ONE (14:01)
[2024-02-17] MEDS ORDERED: LORazepam 2 MG/ML SDV IVPUSH ONE (14:51)
[2024-02-17 16:36] VITALS: BP 110/78; PULSE 110
== END 2024-02-17 15:15 | disposition home or self-care (01) ==
LOC: JD.ED 11:39
DX: F41.9 Anxiety disorder, unspecified (principal); F10.230 Alcohol dependence with withdrawal, uncomplicated; Z86.16 Personal history of COVID-19; Z79.899 Other long term (current) drug therapy
CPT/HCPCS: 36415; 80053; 80143; 80179; 80306; 80307; 84443; 85025; 93005; 96361; 96374; 96375; 99283; J1200; J2060; J2765; J7030; J7120

== ENCOUNTER 2024-02-18 19:23 | Emergency (ER) | payer MEDICAID ==
[2024-02-18 19:36] VITALS: BP 147/88; PULSE 108
== END 2024-02-18 19:50 ==
LOC: JD.ED 19:23
DX: Z02.89 Encounter for other administrative examinations (principal); F10.120 Alcohol abuse with intoxication, uncomplicated; Z86.16 Personal history of COVID-19; F17.210 Nicotine dependence, cigarettes, uncomplicated
CPT/HCPCS: 99284

== ENCOUNTER 2024-02-20 21:02 | Emergency (ER) | payer MEDICAID ==
[2024-02-20 21:31] VITALS: BP 147/75; PULSE 97
[2024-02-20] MEDS: LORazepam 2 MG/ML SDV IVPUSH ONE ×2 (22:23→23:17)
[2024-02-20] MEDS: Sodium Chloride 0.9% 1,000 ML IV ONE (22:26)
[2024-02-20 22:29] LABS: BASOPHILS PERCENT AUTO 0.6 % (0.0-1.0); EOSINOPHILS ABSOLUTE AUTO 0.1 K/mm3 (0.0-0.4); EOSINOPHILS PERCENT AUTO 1.2 % (0.0-6.0); HEMATOCRIT 38.3 % (42.0-52.0); HEMOGLOBIN 13.4 gm/dl (14.0-18.0); IMMATURE GRAN ABSOLUTE AUTO 0.02 K/mm3 (0.00-0.05); IMMATURE GRAN PERCENT AUTO 0.3 % (0.0-0.4); LYMPHOCYTES ABSOLUTE AUTO 2.4 K/mm3 (1.0-4.8); LYMPHOCYTES PERCENT AUTO 35.7 % (24.0-44.0); MEAN CORPUSCULAR HEMOGLOBIN 33.1 pg (28.0-32.0); MEAN CORPUSCULAR VOLUME 94.6 fl (83.0-99.0); MEAN PLATELET VOLUME 9.4 fl (9.4-12.4); MONOCYTES ABSOLUTE AUTO 0.5 K/mm3 (0.0-0.8); MONOCYTES PERCENT AUTO 7.1 % (0.0-8.0); NEUTROPHILS ABSOLUTE AUTO 3.7 K/mm3 (1.8-7.7); NEUTROPHILS PERCENT AUTO 55.1 % (41.0-71.0); PLATELET COUNT,PLT 223 K/mm3 (150-400); RED BLOOD CELL COUNT 4.05 M/mm3 (4.52-5.90); WHITE BLOOD CELL COUNT,WBC 6.77 K/mm3 (3.9-11.3)
[2024-02-20 22:37] LABS: APPEARANCE,URINE CLEAR (Clear); BILIRUBIN,URINE NEGATIVE (Negative); COLOR,URINE YELLOW (Yellow); GLUCOSE,URINE NEGATIVE (Negative); KETONES,URINE NEGATIVE (Negative); LEUKOCYTE ESTERASE,URINE NEGATIVE (Negative); NITRITE,URINE NEGATIVE (Negative); OCCULT BLOOD,URINE NEGATIVE (Negative); PH,URINE 8.5 (5.0-8.0); PROTEIN,URINE NEGATIVE (Negative)
[2024-02-20 22:47] LABS: BARBITURATE SCREEN,URINE NEGATIVE (CUTOFF=200); BENZODIAZEPINES SCREEN,URINE NEGATIVE (CUTOFF=150); BUPRENORPHINE SCREEN,URINE NEGATIVE (CUTOFF=10); METHADONE SCREEN, URINE NEGATIVE (CUT0FF=200); METHAMPHETAMINES SCREEN, URINE NEGATIVE (CUTOFF=500); OXYCODONE SCREEN,URINE NEGATIVE (CUT0FF=100); THC SCREEN,URINE 20 NG/ML PRESUMPTIVE POSITIVE (CUTOFF=50)
[2024-02-20 22:50] LABS: A/G RATIO 1.1 (1-2); ALBUMIN 3.7 g/dl (3.4-5.0); ANION GAP 11.4 (5-15); BILIRUBIN TOTAL 0.4 mg/dL (0.2-1.0); BUN/CREATININE RATIO 11.4 (14-18); CALCIUM 8.3 mg/dL (8.5-10.1); CREATININE 0.7 mg/dL (0.7-1.3); EST CRCL DRUG DOSING (CG) 151.5 mL/min; ETHANOL BLOOD MEDICAL 0.12 gm% (0.00); POTASSIUM,K 3.4 mEq/L (3.5-5.1)
[2024-02-20 22:50] LABS: AMPHETAMINES SCREEN, URINE NEGATIVE (CUTOFF=500)
[2024-02-20] MEDS: Metoclopramide 10 MG/2 ML SDV IVPUSH ONE (22:56)
== END 2024-02-20 23:37 | disposition home or self-care (01) ==
LOC: JD.ED 21:02
DX: F41.9 Anxiety disorder, unspecified (principal); Z86.16 Personal history of COVID-19; Z79.899 Other long term (current) drug therapy
CPT/HCPCS: 36415; 80053; 80306; 80307; 81003; 85025; 96361; 96374; 96375; 96376; 99284; J2060; J2765; J7030

== ENCOUNTER 2024-02-29 18:03 | Emergency (ER) | payer MEDICAID ==
[2024-02-29 18:58] LABS: APPEARANCE,URINE CLEAR (Clear); BILIRUBIN,URINE NEGATIVE (Negative); COLOR,URINE YELLOW (Yellow); GLUCOSE,URINE NEGATIVE (Negative); KETONES,URINE NEGATIVE (Negative); LEUKOCYTE ESTERASE,URINE NEGATIVE (Negative); NITRITE,URINE NEGATIVE (Negative); OCCULT BLOOD,URINE NEGATIVE (Negative); PROTEIN,URINE NEGATIVE (Negative); UROBILINOGEN,URINE 0.2 (0.2-1.0)
[2024-02-29] MEDS: Sodium Chloride 0.9% 1,000 ML IV ONE (19:11)
[2024-02-29 19:19] LABS: BARBITURATE SCREEN,URINE NEGATIVE (CUTOFF=200); BENZODIAZEPINES SCREEN,URINE NEGATIVE (CUTOFF=150); BUPRENORPHINE SCREEN,URINE NEGATIVE (CUTOFF=10); METHADONE SCREEN, URINE NEGATIVE (CUT0FF=200); METHAMPHETAMINES SCREEN, URINE NEGATIVE (CUTOFF=500); OXYCODONE SCREEN,URINE NEGATIVE (CUT0FF=100); THC SCREEN,URINE 20 NG/ML NEGATIVE (CUTOFF=50)
[2024-02-29 19:21] LABS: AMPHETAMINES SCREEN, URINE NEGATIVE (CUTOFF=500)
[2024-02-29 20:01] LABS: BASOPHILS ABSOLUTE AUTO 0.1 K/mm3 (0.0-0.2); BASOPHILS PERCENT AUTO 1.3 % (0.0-1.0); EOSINOPHILS ABSOLUTE AUTO 0.1 K/mm3 (0.0-0.4); EOSINOPHILS PERCENT AUTO 1.7 % (0.0-6.0); HEMATOCRIT 42.2 % (42.0-52.0); HEMOGLOBIN 14.3 gm/dl (14.0-18.0); IMMATURE GRAN ABSOLUTE AUTO 0.03 K/mm3 (0.00-0.05); IMMATURE GRAN PERCENT AUTO 0.6 % (0.0-0.4); LYMPHOCYTES ABSOLUTE AUTO 2.3 K/mm3 (1.0-4.8); LYMPHOCYTES PERCENT AUTO 42.5 % (24.0-44.0); MEAN CORPUSCULAR HGB CONC 33.9 g/dl (32.0-36.0); MEAN CORPUSCULAR VOLUME 100.2 fl (83.0-99.0); MEAN PLATELET VOLUME 9.5 fl (9.4-12.4); MONOCYTES ABSOLUTE AUTO 0.3 K/mm3 (0.0-0.8); MONOCYTES PERCENT AUTO 6.3 % (0.0-8.0); NEUTROPHILS ABSOLUTE AUTO 2.6 K/mm3 (1.8-7.7); NEUTROPHILS PERCENT AUTO 47.6 % (41.0-71.0); PLATELET COUNT,PLT 290 K/mm3 (150-400); RED BLOOD CELL COUNT 4.21 M/mm3 (4.52-5.90); WHITE BLOOD CELL COUNT,WBC 5.36 K/mm3 (3.9-11.3)
[2024-02-29 20:06] LABS: A/G RATIO 1.2 (1-2); ALBUMIN 4.1 g/dl (3.4-5.0); ANION GAP 17.1 (5-15); BILIRUBIN TOTAL 0.3 mg/dL (0.2-1.0); BUN/CREATININE RATIO 7.5 (14-18); CALCIUM 8.4 mg/dL (8.5-10.1); CREATININE 0.8 mg/dL (0.7-1.3); EST CRCL DRUG DOSING (CG) 128.25 mL/min; MAGNESIUM 1.7 mg/dL (1.8-2.4); POTASSIUM,K 4.1 mEq/L (3.5-5.1); PROTEIN TOTAL,TP 7.6 g/dl (6.4-8.2)
[2024-02-29] MEDS: LORazepam 2 MG/ML SDV ONE (20:56)
[2024-02-29] MEDS: Ondansetron 4 MG/2 ML SDV ONE (20:56)
[2024-03-01 07:01] VITALS: BP 128/85; PULSE 85
== END 2024-03-01 07:16 | disposition home or self-care (01) ==
LOC: JD.ED 18:03
DX: F10.120 Alcohol abuse with intoxication, uncomplicated (principal); Z86.16 Personal history of COVID-19; F17.210 Nicotine dependence, cigarettes, uncomplicated
CPT/HCPCS: 36415; 80053; 80306; 80307; 81003; 83735; 85025; 96360; 99283; J2060; J2405; J7030

== ENCOUNTER 2024-03-04 13:43 | Emergency (ER) | payer MEDICAID ==
[2024-03-04] MEDS ORDERED: Sodium Chloride 0.9% 10 ML Syringe FLUSH PRN (17:41)
[2024-03-04] MEDS: Ondansetron 4 MG/2 ML SDV IVPUSH ONE ×2 (19:36→21:37)
[2024-03-04] MEDS: Sodium Chloride 0.9% 1,000 ML IV SCH (19:41)
[2024-03-04] MEDS: LORazepam 2 MG/ML SDV IVPUSH ONE ×2 (19:52→21:37)
[2024-03-04 20:20] LABS: A/G RATIO 1.1 (1-2)
[2024-03-04 20:45] LABS: BASOPHILS ABSOLUTE AUTO 0.1 K/mm3 (0.0-0.2); BASOPHILS PERCENT AUTO 1.7 % (0.0-1.0); EOSINOPHILS PERCENT AUTO 0.4 % (0.0-6.0); HEMATOCRIT 46.2 % (42.0-52.0); HEMOGLOBIN 15.6 gm/dl (14.0-18.0); IMMATURE GRAN ABSOLUTE AUTO 0.01 K/mm3 (0.00-0.05); IMMATURE GRAN PERCENT AUTO 0.2 % (0.0-0.4); LYMPHOCYTES ABSOLUTE AUTO 2.8 K/mm3 (1.0-4.8); LYMPHOCYTES PERCENT AUTO 51.7 % (24.0-44.0); MEAN CORPUSCULAR HEMOGLOBIN 33.5 pg (28.0-32.0); MEAN CORPUSCULAR HGB CONC 33.8 g/dl (32.0-36.0); MEAN CORPUSCULAR VOLUME 99.4 fl (83.0-99.0); MEAN PLATELET VOLUME 9.3 fl (9.4-12.4); MONOCYTES ABSOLUTE AUTO 0.3 K/mm3 (0.0-0.8); MONOCYTES PERCENT AUTO 5.9 % (0.0-8.0); NEUTROPHILS ABSOLUTE AUTO 2.2 K/mm3 (1.8-7.7); NEUTROPHILS PERCENT AUTO 40.1 % (41.0-71.0); PLATELET COUNT,PLT 321 K/mm3 (150-400); RED BLOOD CELL COUNT 4.65 M/mm3 (4.52-5.90); WHITE BLOOD CELL COUNT,WBC 5.43 K/mm3 (3.9-11.3)
[2024-03-04 21:39] LABS: ALBUMIN 3.9 g/dl (3.4-5.0); BILIRUBIN TOTAL 0.3 mg/dL (0.2-1.0); BUN/CREATININE RATIO 14.4 (14-18); CALCIUM 8.2 mg/dL (8.5-10.1); CREATININE 0.9 mg/dL (0.7-1.3); EST CRCL DRUG DOSING (CG) 110.17 mL/min; ETHANOL BLOOD MEDICAL 0.35 gm% (0.00); MAGNESIUM 1.9 mg/dL (1.8-2.4); PROTEIN TOTAL,TP 7.6 g/dl (6.4-8.2); TSH 1.024 uIU/mL (0.358-3.74)
[2024-03-05 00:40] LABS: BARBITURATE SCREEN,URINE NEGATIVE (CUTOFF=200); BENZODIAZEPINES SCREEN,URINE PRESUMPTIVE POSITIVE (CUTOFF=150); BUPRENORPHINE SCREEN,URINE NEGATIVE (CUTOFF=10); METHADONE SCREEN, URINE NEGATIVE (CUT0FF=200); METHAMPHETAMINES SCREEN, URINE NEGATIVE (CUTOFF=500); OXYCODONE SCREEN,URINE NEGATIVE (CUT0FF=100); THC SCREEN,URINE 20 NG/ML NEGATIVE (CUTOFF=50)
[2024-03-05 00:53] LABS: AMPHETAMINES SCREEN, URINE NEGATIVE (CUTOFF=500)
[2024-03-05] MEDS: chlordiazePOXIDE 25 MG Cap PO ONE (04:02)
[2024-03-05 05:48] LABS: APPEARANCE,URINE CLOUDY (Clear); BILIRUBIN,URINE NEGATIVE (Negative); COLOR,URINE YELLOW (Yellow); GLUCOSE,URINE NEGATIVE (Negative); KETONES,URINE NEGATIVE (Negative); LEUKOCYTE ESTERASE,URINE NEGATIVE (Negative); NITRITE,URINE NEGATIVE (Negative); OCCULT BLOOD,URINE NEGATIVE (Negative); PH,URINE 6.5 (5.0-8.0); PROTEIN,URINE TRACE (Negative); UROBILINOGEN,URINE 0.2 (0.2-1.0)
[2024-03-05 05:58] LABS: EPITHELIAL CELLS,URINE 0-5 /hpf (0-5); RBC,URINE NOT SEEN /hpf (0-5); WBC,URINE 0-5 /hpf (0-5)
[2024-03-05 05:59] LABS: AMORPHOUS SEDIMENT,URINE MODERATE /hpf (NOT SEEN); BACTERIA,URINE FEW /hpf (FEW); MUCUS,URINE NOT SEEN /hpf (FEW)
[2024-03-05] MEDS: Metoclopramide 10 MG/2 ML SDV IVPUSH ONE (06:26)
[2024-03-05 06:36] VITALS: BP 123/62; PULSE 97
== END 2024-03-05 06:30 | disposition home or self-care (01) ==
LOC: JD.ED 13:43
DX: F10.10 Alcohol abuse, uncomplicated (principal); E86.0 Dehydration; Z86.16 Personal history of COVID-19; Z79.899 Other long term (current) drug therapy; Y90.0 Blood alcohol level of less than 20 mg/100 ml
CPT/HCPCS: 36415; 80053; 80143; 80179; 80306; 80307; 81001; 83735; 84443; 85025; 96361; 96374; 96375; 96376; 99284; A9270; J2060; J2405; J2765; J7030

== ENCOUNTER 2024-03-15 14:00 | Emergency (ER) | payer MEDICAID ==
[2024-03-15] MEDS: Folic Acid 1 MG Tab PO ONE (16:23)
[2024-03-15] MEDS: Thiamine 100 MG Tab PO ONE (16:23)
[2024-03-15] MEDS: Sodium Chloride 0.9% 10 ML Syringe FLUSH PRN (16:24)
[2024-03-15] MEDS: Sodium Chloride 0.9% 1,000 ML IV ONE (16:24)
[2024-03-15 16:34] LABS: BASOPHILS ABSOLUTE AUTO 0.1 K/mm3 (0.0-0.2); BASOPHILS PERCENT AUTO 0.9 % (0.0-1.0); EOSINOPHILS PERCENT AUTO 0.1 % (0.0-6.0); HEMOGLOBIN 15.8 gm/dl (14.0-18.0); IMMATURE GRAN ABSOLUTE AUTO 0.04 K/mm3 (0.00-0.05); IMMATURE GRAN PERCENT AUTO 0.3 % (0.0-0.4); LYMPHOCYTES ABSOLUTE AUTO 1.4 K/mm3 (1.0-4.8); LYMPHOCYTES PERCENT AUTO 11.8 % (24.0-44.0); MEAN CORPUSCULAR HEMOGLOBIN 33.8 pg (28.0-32.0); MEAN CORPUSCULAR HGB CONC 35.1 g/dl (32.0-36.0); MEAN CORPUSCULAR VOLUME 96.4 fl (83.0-99.0); MEAN PLATELET VOLUME 9.7 fl (9.4-12.4); MONOCYTES ABSOLUTE AUTO 0.8 K/mm3 (0.0-0.8); MONOCYTES PERCENT AUTO 6.9 % (0.0-8.0); NEUTROPHILS ABSOLUTE AUTO 9.7 K/mm3 (1.8-7.7); PLATELET COUNT,PLT 278 K/mm3 (150-400); RED BLOOD CELL COUNT 4.67 M/mm3 (4.52-5.90); WHITE BLOOD CELL COUNT,WBC 12.17 K/mm3 (3.9-11.3)
[2024-03-15 16:58] LABS: INR 1.02; PROTHROMBIN TIME 10.8 SECONDS (9.7-12.0)
[2024-03-15 17:00] LABS: PTT,PARTIAL THROMBOPLSTIN TIME 25.1 SECONDS (21.7-31.4)
[2024-03-15 17:01] LABS: A/G RATIO 1.2 (1-2); ALBUMIN 4.3 g/dl (3.4-5.0); ANION GAP 12.6 (5-15); BILIRUBIN TOTAL 1.5 mg/dL (0.2-1.0); BUN/CREATININE RATIO 16.3 (14-18); CALCIUM 9.2 mg/dL (8.5-10.1); CREATININE 0.8 mg/dL (0.7-1.3); EST CRCL DRUG DOSING (CG) 132.56 mL/min; MAGNESIUM 1.3 mg/dL (1.8-2.4); POTASSIUM,K 3.6 mEq/L (3.5-5.1); PROTEIN TOTAL,TP 7.8 g/dl (6.4-8.2)
[2024-03-15] MEDS: Multivitamin Tab PO SCH (17:29)
[2024-03-15] MEDS ORDERED: Magnesium Sulfate/Water Premix 2 GM in Premix Bag 1 BAG IV SCH (17:30)
[2024-03-15] MEDS: LORazepam 2 MG/ML SDV IVPUSH ONE (17:37)
[2024-03-15] MEDS: Ondansetron 4 MG/2 ML SDV IVPUSH ONE (17:37)
[2024-03-15] MEDS: Magnesium Sulfate/Water Premix 2 GM in Premix Bag 1 BAG IV ONE (17:39)
[2024-03-15] MEDS: Potassium Chloride 20 MEQ Tab.ER PO ONE (19:04)
[2024-03-15] MEDS: chlordiazePOXIDE 25 MG Cap PO ONE (19:04)
[2024-03-15 19:51] VITALS: BP 130/64; PULSE 72
[2024-03-16] MEDS ORDERED: Multivitamin Tab PO ONE (16:06)
== END 2024-03-15 20:00 | disposition home or self-care (01) ==
LOC: JD.ED 14:00
DX: F10.239 Alcohol dependence with withdrawal, unspecified (principal); E83.42 Hypomagnesemia; F17.210 Nicotine dependence, cigarettes, uncomplicated; Z86.16 Personal history of COVID-19; Z79.899 Other long term (current) drug therapy
CPT/HCPCS: 36415; 80053; 80307; 83735; 85025; 85610; 85730; 96361; 96365; 96366; 96375; 99284; A9270; J2060; J2405; J3475; J7030

== ENCOUNTER 2024-03-20 17:40 | Emergency (ER) | payer MEDICAID ==
[2024-03-20] MEDS ORDERED: Sodium Chloride 0.9% 10 ML Syringe FLUSH PRN (17:55)
[2024-03-20 18:08] LABS: BASOPHILS ABSOLUTE AUTO 0.1 K/mm3 (0.0-0.2); BASOPHILS PERCENT AUTO 1.2 % (0.0-1.0); EOSINOPHILS ABSOLUTE AUTO 0.1 K/mm3 (0.0-0.4); HEMATOCRIT 49.8 % (42.0-52.0); HEMOGLOBIN 16.8 gm/dl (14.0-18.0); IMMATURE GRAN ABSOLUTE AUTO 0.03 K/mm3 (0.00-0.05); IMMATURE GRAN PERCENT AUTO 0.4 % (0.0-0.4); LYMPHOCYTES PERCENT AUTO 43.3 % (24.0-44.0); MEAN CORPUSCULAR HEMOGLOBIN 33.4 pg (28.0-32.0); MEAN CORPUSCULAR HGB CONC 33.7 g/dl (32.0-36.0); MEAN PLATELET VOLUME 9.2 fl (9.4-12.4); MONOCYTES ABSOLUTE AUTO 0.2 K/mm3 (0.0-0.8); MONOCYTES PERCENT AUTO 2.9 % (0.0-8.0); NEUTROPHILS ABSOLUTE AUTO 3.5 K/mm3 (1.8-7.7); NEUTROPHILS PERCENT AUTO 51.2 % (41.0-71.0); PLATELET COUNT,PLT 255 K/mm3 (150-400); RED BLOOD CELL COUNT 5.03 M/mm3 (4.52-5.90); WHITE BLOOD CELL COUNT,WBC 6.83 K/mm3 (3.9-11.3)
[2024-03-20] MEDS: Ondansetron 4 MG/2 ML SDV IVPUSH ONE (18:32)
[2024-03-20] MEDS: Sodium Chloride 0.9% 1,000 ML IV ONE (18:32)
[2024-03-20 18:43] LABS: A/G RATIO 1.1 (1-2); ALANINE AMINOTRANSFERASE,ALT 73 U/L (16-63); ALBUMIN 4.2 g/dl (3.4-5.0); ALKALINE PHOSPHATASE 132 U/L (46-116); ANION GAP 16.6 (5-15); ASPARTATE AMNIOTRANSFERASE,AST 81 U/L (15-37); BILIRUBIN TOTAL 0.4 mg/dL (0.2-1.0); BLOOD UREA NITROGEN,BUN 10 mg/dL (7-18); BUN/CREATININE RATIO 12.5 (14-18); CALCIUM 8.2 mg/dL (8.5-10.1); CARBON DIOXIDE,CO2 28 mEq/L (21-32); CHLORIDE,CL 104 mEq/L (98-107); CREATININE 0.8 mg/dL (0.7-1.3); ESTIMATED GFR 121 mL/min (>60); ETHANOL BLOOD MEDICAL 0.43 gm% (0.00); GLUCOSE RANDOM 70 mg/dL (70-99); POTASSIUM,K 3.6 mEq/L (3.5-5.1); PROTEIN TOTAL,TP 8.1 g/dl (6.4-8.2); SODIUM,NA 145 mEq/L (136-145); TSH 0.407 uIU/mL (0.358-3.74)
[2024-03-20 18:45] LABS: ACETAMINOPHEN 0 ug/mL (10-30)
[2024-03-20 22:16] LABS: BARBITURATE SCREEN,URINE NEGATIVE (CUTOFF=200); BENZODIAZEPINES SCREEN,URINE PRESUMPTIVE POSITIVE (CUTOFF=150); BUPRENORPHINE SCREEN,URINE NEGATIVE (CUTOFF=10); METHADONE SCREEN, URINE NEGATIVE (CUT0FF=200); METHAMPHETAMINES SCREEN, URINE NEGATIVE (CUTOFF=500); OXYCODONE SCREEN,URINE NEGATIVE (CUT0FF=100); THC SCREEN,URINE 20 NG/ML NEGATIVE (CUTOFF=50)
[2024-03-20] MEDS: Ibuprofen 600 MG Tab PO ONE (22:16)
[2024-03-20 23:06] LABS: AMPHETAMINES SCREEN, URINE NEGATIVE (CUTOFF=500)
[2024-03-21] MEDS: diphenhydrAMINE 50 MG/ML SDV IVPUSH ONE (00:01)
[2024-03-21] MEDS: LORazepam 2 MG/ML SDV IV ONE (05:52)
[2024-03-21 06:28] VITALS: BP 119/78; PULSE 81
== END 2024-03-21 06:40 | disposition home or self-care (01) ==
LOC: JD.ED 17:40
DX: F10.10 Alcohol abuse, uncomplicated (principal); Z86.16 Personal history of COVID-19
CPT/HCPCS: 36415; 80053; 80143; 80179; 80306; 80307; 84443; 85025; 96361; 96374; 96375; 99284; A9270; J1200; J2060; J2405; J7030

== ENCOUNTER 2024-03-21 07:42 | Emergency (ER) | payer MEDICAID ==
[2024-03-21] MEDS: LORazepam 1 MG Tab PO ONE (08:15)
[2024-03-21] MEDS: Acetaminophen 325 MG Tab PO ONE (08:15)
[2024-03-21] MEDS: Metoclopramide 10 MG/2 ML SDV IM ONE (08:15)
[2024-03-21 10:51] VITALS: BP 120/70; PULSE 72
== END 2024-03-21 11:00 | disposition home or self-care (01) ==
LOC: JD.ED 07:42
DX: F10.230 Alcohol dependence with withdrawal, uncomplicated (principal); F17.210 Nicotine dependence, cigarettes, uncomplicated; Z86.16 Personal history of COVID-19; Z79.899 Other long term (current) drug therapy; Y90.9 Presence of alcohol in blood, level not specified
CPT/HCPCS: 36415; 80307; 96372; 99284; A9270; J2765

== ENCOUNTER 2024-04-15 11:32 | Emergency (ER) | payer MEDICAID ==
[2024-04-15 12:51] LABS: BASOPHILS ABSOLUTE AUTO 0.1 K/mm3 (0.0-0.2); BASOPHILS PERCENT AUTO 1.2 % (0.0-1.0); EOSINOPHILS PERCENT AUTO 0.6 % (0.0-6.0); HEMATOCRIT 48.5 % (42.0-52.0); HEMOGLOBIN 16.4 gm/dl (14.0-18.0); LYMPHOCYTES ABSOLUTE AUTO 2.7 K/mm3 (1.0-4.8); LYMPHOCYTES PERCENT AUTO 54.5 % (24.0-44.0); MEAN CORPUSCULAR HEMOGLOBIN 33.3 pg (28.0-32.0); MEAN CORPUSCULAR HGB CONC 33.8 g/dl (32.0-36.0); MEAN CORPUSCULAR VOLUME 98.4 fl (83.0-99.0); MEAN PLATELET VOLUME 9.7 fl (9.4-12.4); MONOCYTES ABSOLUTE AUTO 0.3 K/mm3 (0.0-0.8); MONOCYTES PERCENT AUTO 5.9 % (0.0-8.0); NEUTROPHILS ABSOLUTE AUTO 1.9 K/mm3 (1.8-7.7); NEUTROPHILS PERCENT AUTO 37.8 % (41.0-71.0); PLATELET COUNT,PLT 306 K/mm3 (150-400); RED BLOOD CELL COUNT 4.93 M/mm3 (4.52-5.90); WHITE BLOOD CELL COUNT,WBC 4.95 K/mm3 (3.9-11.3)
[2024-04-15 12:51] LABS: APPEARANCE,URINE CLEAR (Clear); BILIRUBIN,URINE NEGATIVE (Negative); COLOR,URINE YELLOW (Yellow); GLUCOSE,URINE NEGATIVE (Negative); KETONES,URINE NEGATIVE (Negative); LEUKOCYTE ESTERASE,URINE NEGATIVE (Negative); NITRITE,URINE NEGATIVE (Negative); OCCULT BLOOD,URINE NEGATIVE (Negative); PH,URINE 7.5 (5.0-8.0); PROTEIN,URINE NEGATIVE (Negative); UROBILINOGEN,URINE 0.2 (0.2-1.0)
[2024-04-15 13:01] LABS: BARBITURATE SCREEN,URINE NEGATIVE (CUTOFF=200); BENZODIAZEPINES SCREEN,URINE NEGATIVE (CUTOFF=150); BUPRENORPHINE SCREEN,URINE NEGATIVE (CUTOFF=10); METHADONE SCREEN, URINE NEGATIVE (CUT0FF=200); METHAMPHETAMINES SCREEN, URINE NEGATIVE (CUTOFF=500); OXYCODONE SCREEN,URINE NEGATIVE (CUT0FF=100); THC SCREEN,URINE 20 NG/ML NEGATIVE (CUTOFF=50)
[2024-04-15 13:09] LABS: AMPHETAMINES SCREEN, URINE NEGATIVE (CUTOFF=500)
[2024-04-15] MEDS ORDERED: droPERidol 2.5 MG/ML SDV IM PRN (13:13)
[2024-04-15] MEDS: droPERidol 2.5 MG/ML SDV IM ONE (13:19)
[2024-04-15 13:31] LABS: A/G RATIO 1.1 (1-2); ALBUMIN 4.2 g/dl (3.4-5.0); ANION GAP 14.8 (5-15); BILIRUBIN TOTAL 0.5 mg/dL (0.2-1.0); CALCIUM 8.9 mg/dL (8.5-10.1); CREATININE 0.8 mg/dL (0.7-1.3); EST CRCL DRUG DOSING (CG) 132.56 mL/min; ETHANOL BLOOD MEDICAL 0.39 gm% (0.00); POTASSIUM,K 3.8 mEq/L (3.5-5.1); PROTEIN TOTAL,TP 7.9 g/dl (6.4-8.2)
[2024-04-15] MEDS: chlordiazePOXIDE 25 MG Cap PO PRN (20:01)
[2024-04-15 21:07] VITALS: BP 106/73; PULSE 92
== END 2024-04-16 00:09 ==
LOC: JD.ED 11:32
DX: F10.220 Alcohol dependence with intoxication, uncomplicated (principal); F17.210 Nicotine dependence, cigarettes, uncomplicated; Z79.899 Other long term (current) drug therapy; Y90.0 Blood alcohol level of less than 20 mg/100 ml
CPT/HCPCS: 36415; 80053; 80143; 80179; 80306; 80307; 81003; 83690; 85025; 96372; 99284; A9270

== ENCOUNTER 2024-04-24 11:18 | Emergency (ER) | payer MEDICAID | END 2024-04-24 11:54 | disposition left against medical advice (07) | LOC: JD.ED 11:18 | DX: Z53.21 Procedure and treatment not carried out due to patient leaving prior to being seen by health care provider (principal) ==

== ENCOUNTER 2024-04-24 12:25 | Emergency (ER) | payer MEDICAID | END 2024-04-24 13:23 | disposition left against medical advice (07) | LOC: JD.ED 12:25 | DX: Z53.21 Procedure and treatment not carried out due to patient leaving prior to being seen by health care provider (principal) ==

== ENCOUNTER 2024-04-24 17:27 | Emergency (ER) | payer MEDICAID | END 2024-04-24 18:41 | disposition home or self-care (01) | LOC: JD.ED 17:27 | DX: F10.930 Alcohol use, unspecified with withdrawal, uncomplicated (principal); Y90.9 Presence of alcohol in blood, level not specified | CPT/HCPCS: 36415; 80307; 99283; 99284 ==

== ENCOUNTER 2024-04-24 17:52 | Emergency (ER) | payer MEDICAID ==
[2024-04-24] MEDS: chlordiazePOXIDE 25 MG Cap PO ONE (19:23)
[2024-04-24] MEDS: Ondansetron 4 MG/2 ML SDV IVPUSH ONE (19:23)
[2024-04-24] MEDS: Sodium Chloride 0.9% 1,000 ML IV SCH (19:34)
[2024-04-24] MEDS: LORazepam 2 MG/ML SDV ONE ×2 (20:32→21:44)
[2024-04-25 00:16] LABS: ANION GAP 13.9 (5-15); BLOOD UREA NITROGEN,BUN 7 mg/dL (7-18); CALCIUM 7.7 mg/dL (8.5-10.1); CARBON DIOXIDE,CO2 28 mEq/L (21-32); CHLORIDE,CL 108 mEq/L (98-107); CREATININE 0.7 mg/dL (0.7-1.3); ESTIMATED GFR 126 mL/min (>60); ETHANOL BLOOD MEDICAL 0.28 gm% (0.00); GLUCOSE RANDOM 78 mg/dL (70-99); POTASSIUM,K 3.9 mEq/L (3.5-5.1); SODIUM,NA 146 mEq/L (136-145)
[2024-04-25] MEDS: LORazepam 2 MG/ML SDV ONE ×2 (03:39→06:55)
[2024-04-25] MEDS: Acetaminophen 325 MG Tab PO ONE (06:09)
[2024-04-25] MEDS: Ondansetron 4 MG/2 ML SDV ONE (06:55)
[2024-04-25] MEDS: chlordiazePOXIDE 25 MG Cap PO ONE (09:43)
[2024-04-25] MEDS: LORazepam 2 MG/ML SDV IVPUSH ONE (10:15)
[2024-04-25] MEDS: Ondansetron 4 MG/2 ML SDV IVPUSH ONE (10:17)
[2024-04-25] MEDS: Lactated Ringers 1,000 ML IV ONE (10:20)
[2024-04-25 17:31] VITALS: BP 122/79; PULSE 60
== END 2024-04-25 14:35 | disposition home or self-care (01) ==
LOC: JD.ED 17:52
DX: F10.220 Alcohol dependence with intoxication, uncomplicated (principal); Z79.899 Other long term (current) drug therapy; Y90.9 Presence of alcohol in blood, level not specified
CPT/HCPCS: 36415; 80048; 80307; 96361; 96374; 96375; 96376; 99284; A9270; J2060; J2405; J7030; J7120

== ENCOUNTER 2024-07-14 13:28 | Emergency (ER) | payer MEDICAID ==
[2024-07-14] MEDS: Acetaminophen 325 MG Tab PO ONE (14:00)
[2024-07-14] MEDS: Sodium Chloride 0.9% 2,000 ML IV ONE (14:00)
[2024-07-14] MEDS: Ondansetron 4 MG/2 ML SDV IVPUSH ONE ×2 (14:00)
[2024-07-14 14:13] LABS: INR 0.97; PROTHROMBIN TIME 10.3 SECONDS (9.7-12.0)
[2024-07-14 14:16] LABS: BASOPHILS ABSOLUTE AUTO 0.1 K/mm3 (0.0-0.2); BASOPHILS PERCENT AUTO 0.7 % (0.0-1.0); EOSINOPHILS PERCENT AUTO 0.1 % (0.0-6.0); HEMATOCRIT 42.8 % (42.0-52.0); HEMOGLOBIN 14.5 gm/dl (14.0-18.0); IMMATURE GRAN ABSOLUTE AUTO 0.02 K/mm3 (0.00-0.05); IMMATURE GRAN PERCENT AUTO 0.2 % (0.0-0.4); LYMPHOCYTES ABSOLUTE AUTO 1.3 K/mm3 (1.0-4.8); LYMPHOCYTES PERCENT AUTO 14.9 % (24.0-44.0); MEAN CORPUSCULAR HGB CONC 33.9 g/dl (32.0-36.0); MEAN CORPUSCULAR VOLUME 97.5 fl (83.0-99.0); MEAN PLATELET VOLUME 9.9 fl (9.4-12.4); MONOCYTES ABSOLUTE AUTO 0.5 K/mm3 (0.0-0.8); MONOCYTES PERCENT AUTO 5.1 % (0.0-8.0); NEUTROPHILS ABSOLUTE AUTO 6.9 K/mm3 (1.8-7.7); PLATELET COUNT,PLT 271 K/mm3 (150-400); RED BLOOD CELL COUNT 4.39 M/mm3 (4.52-5.90); WHITE BLOOD CELL COUNT,WBC 8.74 K/mm3 (3.9-11.3)
[2024-07-14] MEDS: Magnesium Sulfate 2 GM/50 mL 2 GM/50 ML BAG IV ONE ×2 (14:17→15:29)
[2024-07-14] MEDS: LORazepam 2 MG/ML SDV IVPUSH ONE (14:17)
[2024-07-14 14:18] LABS: A/G RATIO 1.1 (1-2); ALANINE AMINOTRANSFERASE,ALT 92 U/L (16-63); ALBUMIN 4.1 g/dl (3.4-5.0); ALKALINE PHOSPHATASE 139 U/L (46-116); ANION GAP 19.8 (5-15); ASPARTATE AMNIOTRANSFERASE,AST 75 U/L (15-37); BLOOD UREA NITROGEN,BUN 11 mg/dL (7-18); CALCIUM 9.3 mg/dL (8.5-10.1); CARBON DIOXIDE,CO2 24 mEq/L (21-32); CHLORIDE,CL 96 mEq/L (98-107); CREATINE KINASE,CK 373 U/L (39-308); ESTIMATED GFR 103 mL/min (>60); ETHANOL BLOOD MEDICAL 0.02 gm% (0.00); GLUCOSE RANDOM 101 mg/dL (70-99); LIPASE 16 U/L (16-77); MAGNESIUM 1.1 mg/dL (1.8-2.4); POTASSIUM,K 3.8 mEq/L (3.5-5.1); PROTEIN TOTAL,TP 7.9 g/dl (6.4-8.2); SODIUM,NA 136 mEq/L (136-145)
[2024-07-14 14:22] LABS: ACETAMINOPHEN 0 ug/mL (10-30)
[2024-07-14 14:26] LABS: BARBITURATE SCREEN,URINE NEGATIVE (CUTOFF=200); BENZODIAZEPINES SCREEN,URINE NEGATIVE (CUTOFF=150); BUPRENORPHINE SCREEN,URINE NEGATIVE (CUTOFF=10); METHADONE SCREEN, URINE NEGATIVE (CUT0FF=200); METHAMPHETAMINES SCREEN, URINE NEGATIVE (CUTOFF=500); OXYCODONE SCREEN,URINE NEGATIVE (CUT0FF=100); THC SCREEN,URINE 20 NG/ML NEGATIVE (CUTOFF=50)
[2024-07-14 14:29] LABS: AMPHETAMINES SCREEN, URINE NEGATIVE (CUTOFF=500)
[2024-07-14 16:31] VITALS: BP 113/60; PULSE 80
== END 2024-07-14 16:05 | disposition other institution (70) ==
LOC: JD.ED 13:28
DX: F10.930 Alcohol use, unspecified with withdrawal, uncomplicated (principal); E83.42 Hypomagnesemia; R94.5 Abnormal results of liver function studies; Z79.899 Other long term (current) drug therapy
CPT/HCPCS: 36415; 80053; 80143; 80179; 80306; 80307; 82550; 83690; 83735; 85025; 85610; 96365; 96366; 96375; 99285; A9270; J2060; J2405; J3475; J7030

== ENCOUNTER 2024-08-18 14:57 | Emergency (ER) | payer MEDICAID ==
[2024-08-18 15:27] LABS: APPEARANCE,URINE CLEAR (Clear); BILIRUBIN,URINE 1+ (Negative); COLOR,URINE DARK YELLOW (Yellow); GLUCOSE,URINE NEGATIVE (Negative); KETONES,URINE 2+ (Negative); LEUKOCYTE ESTERASE,URINE TRACE (Negative); NITRITE,URINE NEGATIVE (Negative); OCCULT BLOOD,URINE NEGATIVE (Negative); PH,URINE 7.5 (5.0-8.0); PROTEIN,URINE 2+ (Negative)
[2024-08-18 15:39] LABS: BACTERIA,URINE FEW /hpf (FEW); MUCUS,URINE MANY /hpf (FEW); RBC,URINE 0-5 /hpf (0-5); SQUAMOUS EPITHELIAL CELLS,UR 0-5 /hpf (0-5)
[2024-08-18] MEDS: Sodium Chloride 0.9% 1,000 ML IV SCH (15:39)
[2024-08-18 15:40] LABS: BASOPHILS PERCENT AUTO 1.1 % (0.0-1.0); EOSINOPHILS PERCENT AUTO 0.3 % (0.0-6.0); HEMATOCRIT 43.4 % (42.0-52.0); IMMATURE GRAN ABSOLUTE AUTO 0.03 K/mm3 (0.00-0.05); IMMATURE GRAN PERCENT AUTO 0.8 % (0.0-0.4); LYMPHOCYTES ABSOLUTE AUTO 0.6 K/mm3 (1.0-4.8); LYMPHOCYTES PERCENT AUTO 17.1 % (24.0-44.0); MEAN CORPUSCULAR HEMOGLOBIN 32.7 pg (28.0-32.0); MEAN CORPUSCULAR HGB CONC 34.6 g/dl (32.0-36.0); MEAN CORPUSCULAR VOLUME 94.6 fl (83.0-99.0); MEAN PLATELET VOLUME 9.8 fl (9.4-12.4); MONOCYTES ABSOLUTE AUTO 0.4 K/mm3 (0.0-0.8); MONOCYTES PERCENT AUTO 10.7 % (0.0-8.0); NEUTROPHILS ABSOLUTE AUTO 2.6 K/mm3 (1.8-7.7); PLATELET COUNT,PLT 186 K/mm3 (150-400); RED BLOOD CELL COUNT 4.59 M/mm3 (4.52-5.90); WHITE BLOOD CELL COUNT,WBC 3.75 K/mm3 (3.9-11.3)
[2024-08-18] MEDS: Thiamine 200 MG/2 ML MDV IVPUSH ONE (15:40)
[2024-08-18] MEDS: Ondansetron 4 MG/2 ML SDV IVPUSH ONE (15:42)
[2024-08-18] MEDS: Folic Acid 1 MG Tab PO ONE (15:43)
[2024-08-18] MEDS: Acetaminophen 325 MG Tab PO ONE (15:43)
[2024-08-18] MEDS: Multivitamins with Minerals/Folic Acid/Lutein/Zeaxanth Tab PO STA (15:43)
[2024-08-18] MEDS: LORazepam 2 MG/ML SDV IVPUSH ONE (15:44)
[2024-08-18 15:52] LABS: BARBITURATE SCREEN,URINE NEGATIVE (CUTOFF=200); BENZODIAZEPINES SCREEN,URINE PRESUMPTIVE POSITIVE (CUTOFF=150); BUPRENORPHINE SCREEN,URINE NEGATIVE (CUTOFF=10); METHADONE SCREEN, URINE NEGATIVE (CUT0FF=200); METHAMPHETAMINES SCREEN, URINE NEGATIVE (CUTOFF=500); OXYCODONE SCREEN,URINE NEGATIVE (CUT0FF=100); THC SCREEN,URINE 20 NG/ML NEGATIVE (CUTOFF=50)
[2024-08-18 16:01] LABS: A/G RATIO 1.2 (1-2); ALBUMIN 4.5 g/dl (3.4-5.0); ANION GAP 17.3 (5-15); BILIRUBIN TOTAL 1.3 mg/dL (0.2-1.0); BUN/CREATININE RATIO 7.8 (14-18); CALCIUM 9.4 mg/dL (8.5-10.1); CREATININE 0.9 mg/dL (0.7-1.3); EST CRCL DRUG DOSING (CG) 117.83 mL/min; ETHANOL BLOOD MEDICAL 0.01 gm% (0.00); MAGNESIUM 1.5 mg/dL (1.8-2.4); PROTEIN TOTAL,TP 8.3 g/dl (6.4-8.2)
[2024-08-18 16:08] LABS: AMPHETAMINES SCREEN, URINE NEGATIVE (CUTOFF=500)
[2024-08-18 16:10] LABS: POTASSIUM,K 4.3 mEq/L (3.5-5.1)
[2024-08-18] MEDS: Magnesium Sulfate 2 GM/50 mL 2 GM/50 ML BAG IV ONE (16:40)
[2024-08-18 18:59] VITALS: BP 130/84; PULSE 82
== END 2024-08-18 18:55 | disposition home or self-care (01) ==
LOC: JD.ED 14:57
DX: F10.230 Alcohol dependence with withdrawal, uncomplicated (principal); E83.42 Hypomagnesemia; F41.9 Anxiety disorder, unspecified; F17.210 Nicotine dependence, cigarettes, uncomplicated; Z79.899 Other long term (current) drug therapy; Y90.9 Presence of alcohol in blood, level not specified
CPT/HCPCS: 36415; 80053; 80143; 80179; 80306; 80307; 81001; 82550; 83690; 83735; 85025; 96361; 96365; 96375; 99284; A9270; J2060; J2405; J3411; J3475; J7030

== ENCOUNTER 2024-10-03 10:10 | Emergency (ER) | payer MEDICAID ==
[2024-10-03] MEDS ORDERED: Sodium Chloride 0.9% 10 ML Syringe FLUSH PRN (10:35)
[2024-10-03] MEDS: Ondansetron 4 MG/2 ML SDV IVPUSH ONE (10:42)
[2024-10-03] MEDS: LORazepam 2 MG/ML SDV IVPUSH ONE (10:44)
[2024-10-03 10:47] LABS: BASOPHILS ABSOLUTE AUTO 0.1 K/mm3 (0.0-0.2); BASOPHILS PERCENT AUTO 1.3 % (0.0-1.0); EOSINOPHILS ABSOLUTE AUTO 0.0 K/mm3 (0.0-0.4); EOSINOPHILS PERCENT AUTO 0.0 % (0.0-6.0); IMMATURE GRAN ABSOLUTE AUTO 0.02 K/mm3 (0.00-0.05); IMMATURE GRAN PERCENT AUTO 0.3 % (0.0-0.4); LYMPHOCYTES ABSOLUTE AUTO 1.3 K/mm3 (1.0-4.8); LYMPHOCYTES PERCENT AUTO 20.0 % (24.0-44.0); MEAN PLATELET VOLUME 9.6 fl (9.4-12.4); MONOCYTES ABSOLUTE AUTO 0.4 K/mm3 (0.0-0.8); MONOCYTES PERCENT AUTO 6.1 % (0.0-8.0); NEUTROPHILS ABSOLUTE AUTO 4.9 K/mm3 (1.8-7.7); NEUTROPHILS PERCENT AUTO 72.3 % (41.0-71.0); NRBC ABSOLUTE 0.00 (0.00-0.02); NRBC PERCENT 0.0 % (0.0-0.2); PLATELET COUNT,PLT 294 K/mm3 (150-400); RED BLOOD CELL COUNT 4.32 M/mm3 (4.52-5.90); WHITE BLOOD CELL COUNT,WBC 6.71 K/mm3 (3.9-11.3)
[2024-10-03 10:58] LABS: BUPRENORPHINE SCREEN,URINE NEGATIVE (CUTOFF=10); METHADONE SCREEN, URINE NEGATIVE (CUT0FF=200); METHAMPHETAMINES SCREEN, URINE NEGATIVE (CUTOFF=500); OXYCODONE SCREEN,URINE NEGATIVE (CUT0FF=100); THC SCREEN,URINE 20 NG/ML NEGATIVE (CUTOFF=50)
[2024-10-03 11:01] LABS: AMPHETAMINES SCREEN, URINE NEGATIVE (CUTOFF=500)
[2024-10-03 11:07] LABS: A/G RATIO 1.2 (1-2); ALANINE AMINOTRANSFERASE,ALT 62.0 U/L (16-63); ASPARTATE AMNIOTRANSFERASE,AST 57.0 U/L (15-37); BILIRUBIN TOTAL 0.8 mg/dL (0.2-1.0); BLOOD UREA NITROGEN,BUN 10.0 mg/dL (7-18); CARBON DIOXIDE,CO2 27.0 mEq/L (21-32); CHLORIDE,CL 98.0 mEq/L (98-107); CREATININE 0.7 mg/dL (0.7-1.3); EST CRCL DRUG DOSING (CG) 152.12 mL/min; ESTIMATED GFR 126.0 mL/min (>60); ETHANOL BLOOD MEDICAL 0.07 gm% (0.00); GLUCOSE RANDOM 123.0 mg/dL (70-99); POTASSIUM,K 3.3 mEq/L (3.5-5.1); PROTEIN TOTAL,TP 7.9 g/dl (6.4-8.2); SODIUM,NA 138.0 mEq/L (136-145); TROPONIN I HIGH SENSITIVITY 27.0 pg/mL (<=76); TSH 0.702 uIU/mL (0.358-3.74)
[2024-10-03 11:46] VITALS: BP 135/80
[2024-10-03 15:11] VITALS: PULSE 80
== END 2024-10-03 14:05 ==
LOC: JD.ED 10:10
DX: F10.230 Alcohol dependence with withdrawal, uncomplicated (principal); F17.210 Nicotine dependence, cigarettes, uncomplicated; Z79.899 Other long term (current) drug therapy
CPT/HCPCS: 36415; 71045; 80053; 80143; 80179; 80306; 80307; 84443; 84484; 85025; 93005; 96361; 96374; 96375; 99285; J1308; J2060; J2405; J7030; 93010; 99283

== ENCOUNTER 2024-10-23 02:00 | Emergency (ER) | payer MEDICAID ==
[2024-10-23] MEDS ORDERED: Sodium Chloride 0.9% 10 ML Syringe FLUSH PRN (02:15)
[2024-10-23 02:23] LABS: APPEARANCE,URINE CLEAR (Clear); GLUCOSE,URINE NEGATIVE (Negative); OCCULT BLOOD,URINE NEGATIVE (Negative)
[2024-10-23 02:32] LABS: BUPRENORPHINE SCREEN,URINE NEGATIVE (CUTOFF=10); METHADONE SCREEN, URINE NEGATIVE (CUT0FF=200); METHAMPHETAMINES SCREEN, URINE NEGATIVE (CUTOFF=500); OXYCODONE SCREEN,URINE NEGATIVE (CUT0FF=100); THC SCREEN,URINE 20 NG/ML PRESUMPTIVE POSITIVE (CUTOFF=50)
[2024-10-23 02:43] LABS: BASOPHILS ABSOLUTE AUTO 0.1 K/mm3 (0.0-0.2); BASOPHILS PERCENT AUTO 1.2 % (0.0-1.0); EOSINOPHILS ABSOLUTE AUTO 0.0 K/mm3 (0.0-0.4); EOSINOPHILS PERCENT AUTO 0.5 % (0.0-6.0); IMMATURE GRAN ABSOLUTE AUTO 0.02 K/mm3 (0.00-0.05); IMMATURE GRAN PERCENT AUTO 0.4 % (0.0-0.4); LYMPHOCYTES ABSOLUTE AUTO 3.0 K/mm3 (1.0-4.8); LYMPHOCYTES PERCENT AUTO 52.2 % (24.0-44.0); MEAN PLATELET VOLUME 9.4 fl (9.4-12.4); MONOCYTES ABSOLUTE AUTO 0.4 K/mm3 (0.0-0.8); MONOCYTES PERCENT AUTO 7.0 % (0.0-8.0); NEUTROPHILS ABSOLUTE AUTO 2.2 K/mm3 (1.8-7.7); NEUTROPHILS PERCENT AUTO 38.7 % (41.0-71.0); NRBC ABSOLUTE 0.00 (0.00-0.02); NRBC PERCENT 0.0 % (0.0-0.2); PLATELET COUNT,PLT 239 K/mm3 (150-400); RED BLOOD CELL COUNT 3.86 M/mm3 (4.52-5.90); WHITE BLOOD CELL COUNT,WBC 5.71 K/mm3 (3.9-11.3)
[2024-10-23 02:48] LABS: AMPHETAMINES SCREEN, URINE NEGATIVE (CUTOFF=500)
[2024-10-23 03:08] LABS: A/G RATIO 1.1 (1-2); ALANINE AMINOTRANSFERASE,ALT 60.0 U/L (16-63); ASPARTATE AMNIOTRANSFERASE,AST 41.0 U/L (15-37); BILIRUBIN TOTAL 0.3 mg/dL (0.2-1.0); BLOOD UREA NITROGEN,BUN 9.0 mg/dL (7-18); CARBON DIOXIDE,CO2 36.0 mEq/L (21-32); CHLORIDE,CL 109.0 mEq/L (98-107); CREATINE KINASE,CK 361.0 U/L (39-308); CREATININE 0.8 mg/dL (0.7-1.3); EST CRCL DRUG DOSING (CG) 132.56 mL/min; ESTIMATED GFR 121.0 mL/min (>60); ETHANOL BLOOD MEDICAL 0.38 gm% (0.00); GLUCOSE RANDOM 94.0 mg/dL (70-99); POTASSIUM,K 3.6 mEq/L (3.5-5.1); PROTEIN TOTAL,TP 6.8 g/dl (6.4-8.2); SODIUM,NA 150.0 mEq/L (136-145); TROPONIN I HIGH SENSITIVITY 18.0 pg/mL (<=76)
[2024-10-23 10:39] VITALS: BP 108/80; PULSE 90
== END 2024-10-23 10:44 | disposition home or self-care (01) ==
LOC: JD.ED 02:00
DX: F10.129 Alcohol abuse with intoxication, unspecified (principal)
CPT/HCPCS: 36415; 70450; 71045; 72125; 80053; 80306; 80307; 81003; 82550; 83690; 83735; 84484; 85025; 93005; 96360; 99285; J7030; 93010; 99283

== ENCOUNTER 2024-11-15 12:46 | Emergency (ER) | payer MEDICAID ==
[2024-11-15] MEDS ORDERED: Sodium Chloride 0.9% 10 ML Syringe FLUSH PRN (13:07)
[2024-11-15 13:36] LABS: BASOPHILS ABSOLUTE AUTO 0.1 K/mm3 (0.0-0.2); BASOPHILS PERCENT AUTO 1.0 % (0.0-1.0); EOSINOPHILS ABSOLUTE AUTO 0.2 K/mm3 (0.0-0.4); EOSINOPHILS PERCENT AUTO 2.4 % (0.0-6.0); IMMATURE GRAN ABSOLUTE AUTO 0.02 K/mm3 (0.00-0.05); IMMATURE GRAN PERCENT AUTO 0.3 % (0.0-0.4); LYMPHOCYTES ABSOLUTE AUTO 1.2 K/mm3 (1.0-4.8); LYMPHOCYTES PERCENT AUTO 15.8 % (24.0-44.0); MEAN PLATELET VOLUME 9.3 fl (9.4-12.4); MONOCYTES ABSOLUTE AUTO 0.5 K/mm3 (0.0-0.8); MONOCYTES PERCENT AUTO 6.5 % (0.0-8.0); NEUTROPHILS ABSOLUTE AUTO 5.4 K/mm3 (1.8-7.7); NEUTROPHILS PERCENT AUTO 74.0 % (41.0-71.0); NRBC ABSOLUTE 0.00 (0.00-0.02); NRBC PERCENT 0.0 % (0.0-0.2); PLATELET COUNT,PLT 270 K/mm3 (150-400); RED BLOOD CELL COUNT 4.19 M/mm3 (4.52-5.90); WHITE BLOOD CELL COUNT,WBC 7.35 K/mm3 (3.9-11.3)
[2024-11-15 14:09] LABS: A/G RATIO 1.1 (1-2); ALANINE AMINOTRANSFERASE,ALT 63.0 U/L (16-63); ASPARTATE AMNIOTRANSFERASE,AST 53.0 U/L (15-37); BILIRUBIN TOTAL 0.4 mg/dL (0.2-1.0); BLOOD UREA NITROGEN,BUN 7.0 mg/dL (7-18); CARBON DIOXIDE,CO2 29.0 mEq/L (21-32); CHLORIDE,CL 99.0 mEq/L (98-107); CREATININE 0.7 mg/dL (0.7-1.3); EST CRCL DRUG DOSING (CG) 151.5 mL/min; ESTIMATED GFR 126.0 mL/min (>60); ETHANOL BLOOD MEDICAL 0.01 gm% (0.00); GLUCOSE RANDOM 90.0 mg/dL (70-99); PROTEIN TOTAL,TP 8.0 g/dl (6.4-8.2); SODIUM,NA 137.0 mEq/L (136-145); TROPONIN I HIGH SENSITIVITY 21.0 pg/mL (<=76); TSH 0.984 uIU/mL (0.358-3.74)
[2024-11-15 14:11] LABS: BUPRENORPHINE SCREEN,URINE NEGATIVE (CUTOFF=10); METHADONE SCREEN, URINE NEGATIVE (CUT0FF=200); METHAMPHETAMINES SCREEN, URINE NEGATIVE (CUTOFF=500); OXYCODONE SCREEN,URINE NEGATIVE (CUT0FF=100); THC SCREEN,URINE 20 NG/ML PRESUMPTIVE POSITIVE (CUTOFF=50)
[2024-11-15 14:13] LABS: AMPHETAMINES SCREEN, URINE NEGATIVE (CUTOFF=500)
[2024-11-15 14:15] LABS: POTASSIUM,K 3.8 mEq/L (3.5-5.1)
[2024-11-15] MEDS: LORazepam 2 MG/ML SDV IVPUSH ONE ×2 (14:20→16:33)
[2024-11-15 16:27] VITALS: BP 131/86; PULSE 65
== END 2024-11-15 16:40 | disposition other institution (70) ==
LOC: JD.ED 12:46
DX: F10.939 Alcohol use, unspecified with withdrawal, unspecified (principal); Z79.899 Other long term (current) drug therapy
CPT/HCPCS: 36415; 80053; 80143; 80179; 80306; 80307; 84443; 84484; 85025; 93005; 96361; 96374; 96376; 99285; J2060; J7030; 93010

== ENCOUNTER 2024-11-24 17:07 | Emergency (ER) | payer MEDICAID ==
[2024-11-24] MEDS ORDERED: Sodium Chloride 0.9% 10 ML Syringe FLUSH PRN (17:42)
[2024-11-24 18:56] LABS: BASOPHILS ABSOLUTE AUTO 0.1 K/mm3 (0.0-0.2); BASOPHILS PERCENT AUTO 1.5 % (0.0-1.0); EOSINOPHILS ABSOLUTE AUTO 0.0 K/mm3 (0.0-0.4); EOSINOPHILS PERCENT AUTO 0.7 % (0.0-6.0); IMMATURE GRAN ABSOLUTE AUTO 0.01 K/mm3 (0.00-0.05); IMMATURE GRAN PERCENT AUTO 0.2 % (0.0-0.4); LYMPHOCYTES ABSOLUTE AUTO 2.4 K/mm3 (1.0-4.8); LYMPHOCYTES PERCENT AUTO 51.2 % (24.0-44.0); MEAN PLATELET VOLUME 9.6 fl (9.4-12.4); MONOCYTES ABSOLUTE AUTO 0.4 K/mm3 (0.0-0.8); MONOCYTES PERCENT AUTO 8.5 % (0.0-8.0); NEUTROPHILS ABSOLUTE AUTO 1.7 K/mm3 (1.8-7.7); NEUTROPHILS PERCENT AUTO 37.9 % (41.0-71.0); NRBC ABSOLUTE 0.00 (0.00-0.02); NRBC PERCENT 0.0 % (0.0-0.2); PLATELET COUNT,PLT 283 K/mm3 (150-400); RED BLOOD CELL COUNT 4.46 M/mm3 (4.52-5.90); WHITE BLOOD CELL COUNT,WBC 4.59 K/mm3 (3.9-11.3)
[2024-11-24 19:12] LABS: BLOOD UREA NITROGEN,BUN 8 mg/dL (7-18); CARBON DIOXIDE,CO2 32 mEq/L (21-32); CHLORIDE,CL 108 mEq/L (98-107); GLUCOSE RANDOM 96 mg/dL (70-99); POTASSIUM,K 3.8 mEq/L (3.5-5.1); SODIUM,NA 148 mEq/L (136-145)
[2024-11-24 19:13] LABS: A/G RATIO 1.1 (1-2); ALANINE AMINOTRANSFERASE,ALT 60 U/L (16-63); ASPARTATE AMNIOTRANSFERASE,AST 48 U/L (15-37); BILIRUBIN TOTAL 0.3 mg/dL (0.2-1.0); CREATININE 0.8 mg/dL (0.7-1.3); ESTIMATED GFR 121 mL/min (>60); PROTEIN TOTAL,TP 7.8 g/dl (6.4-8.2); TSH 0.201 uIU/mL (0.358-3.74)
[2024-11-24 19:14] LABS: ETHANOL BLOOD MEDICAL 0.42 gm% (0.00)
[2024-11-24] MEDS: Lactated Ringers 1,000 ML IV ONE (21:05)
[2024-11-24 21:24] LABS: BUPRENORPHINE SCREEN,URINE NEGATIVE (CUTOFF=10); METHADONE SCREEN, URINE NEGATIVE (CUT0FF=200); METHAMPHETAMINES SCREEN, URINE NEGATIVE (CUTOFF=500); OXYCODONE SCREEN,URINE NEGATIVE (CUT0FF=100); THC SCREEN,URINE 20 NG/ML NEGATIVE (CUTOFF=50)
[2024-11-24 21:36] LABS: AMPHETAMINES SCREEN, URINE NEGATIVE (CUTOFF=500)
[2024-11-24 22:46] VITALS: BP 119/67; PULSE 74
== END 2024-11-24 22:45 | disposition home or self-care (01) ==
LOC: JD.ED 17:07
DX: F10.120 Alcohol abuse with intoxication, uncomplicated (principal); Z79.899 Other long term (current) drug therapy; Y90.0 Blood alcohol level of less than 20 mg/100 ml
CPT/HCPCS: 36415; 80053; 80143; 80179; 80306; 80307; 84443; 85025; 93005; 96360; 96361; 99284; J7030; J7120; 93010; 99283

== ENCOUNTER 2025-01-09 12:45 | Inpatient (IN) | payer MEDICAID ==
[2025-01-09] MEDS ORDERED: Sodium Chloride 0.9% 10 ML Syringe FLUSH PRN (13:40)
[2025-01-09 13:57] LABS: APPEARANCE,URINE CLOUDY (Clear); GLUCOSE,URINE NEGATIVE (Negative); OCCULT BLOOD,URINE NEGATIVE (Negative)
[2025-01-09] MEDS: LORazepam 2 MG/ML SDV IVPUSH ONE (14:01)
[2025-01-09 14:02] LABS: BASOPHILS ABSOLUTE AUTO 0.1 K/mm3 (0.0-0.2); BASOPHILS PERCENT AUTO 1.5 % (0.0-1.0); EOSINOPHILS ABSOLUTE AUTO 0.1 K/mm3 (0.0-0.4); EOSINOPHILS PERCENT AUTO 1.1 % (0.0-6.0); IMMATURE GRAN ABSOLUTE AUTO 0.00 K/mm3 (0.00-0.05); IMMATURE GRAN PERCENT AUTO 0.0 % (0.0-0.4); LYMPHOCYTES ABSOLUTE AUTO 1.2 K/mm3 (1.0-4.8); LYMPHOCYTES PERCENT AUTO 25.6 % (24.0-44.0); MEAN PLATELET VOLUME 9.6 fl (9.4-12.4); MONOCYTES ABSOLUTE AUTO 0.5 K/mm3 (0.0-0.8); MONOCYTES PERCENT AUTO 10.1 % (0.0-8.0); NEUTROPHILS ABSOLUTE AUTO 2.9 K/mm3 (1.8-7.7); NEUTROPHILS PERCENT AUTO 61.7 % (41.0-71.0); NRBC ABSOLUTE 0.00 (0.00-0.02); NRBC PERCENT 0.0 % (0.0-0.2); PLATELET COUNT,PLT 225 K/mm3 (150-400); RED BLOOD CELL COUNT 4.14 M/mm3 (4.52-5.90); WHITE BLOOD CELL COUNT,WBC 4.76 K/mm3 (3.9-11.3)
[2025-01-09 14:03] LABS: BUPRENORPHINE SCREEN,URINE NEGATIVE (CUTOFF=10); METHADONE SCREEN, URINE NEGATIVE (CUT0FF=200); METHAMPHETAMINES SCREEN, URINE NEGATIVE (CUTOFF=500); OXYCODONE SCREEN,URINE NEGATIVE (CUT0FF=100); THC SCREEN,URINE 20 NG/ML NEGATIVE (CUTOFF=50)
[2025-01-09 14:20] LABS: AMPHETAMINES SCREEN, URINE NEGATIVE (CUTOFF=500)
[2025-01-09 14:27] LABS: EPITHELIAL CELLS,URINE 0-5 /hpf (0-5)
[2025-01-09 14:32] LABS: A/G RATIO 1.1 (1-2); ALANINE AMINOTRANSFERASE,ALT 132.0 U/L (16-63); ASPARTATE AMNIOTRANSFERASE,AST 89.0 U/L (15-37); BILIRUBIN TOTAL 0.4 mg/dL (0.2-1.0); BLOOD UREA NITROGEN,BUN 13.0 mg/dL (7-18); CARBON DIOXIDE,CO2 29.0 mEq/L (21-32); CHLORIDE,CL 99.0 mEq/L (98-107); CREATININE 0.7 mg/dL (0.7-1.3); EST CRCL DRUG DOSING (CG) 151.5 mL/min; ESTIMATED GFR 126.0 mL/min (>60); ETHANOL BLOOD MEDICAL 0.01 gm% (0.00); GLUCOSE RANDOM 106.0 mg/dL (70-99); POTASSIUM,K 3.7 mEq/L (3.5-5.1); PROTEIN TOTAL,TP 7.6 g/dl (6.4-8.2); SODIUM,NA 139.0 mEq/L (136-145)
[2025-01-09] MEDS: Ondansetron 4 MG/2 ML SDV IVPUSH ONE (15:21)
[2025-01-09] MEDS: Thiamine 200 MG/2 ML MDV IM ONE (15:27)
[2025-01-09] MEDS: Magnesium Sulfat/D5W 1GM/100ML 1 GM in Premix Bag 1 BAG IV ONE (16:18)
[2025-01-09] MEDS ORDERED: LORazepam 2 MG/ML SDV IV PRN (17:21)
[2025-01-09] MEDS: LORazepam 2 MG/ML SDV IV PRN (18:59)
[2025-01-10 06:00] LABS: BASOPHILS ABSOLUTE AUTO 0.1 K/mm3 (0.0-0.2); BASOPHILS PERCENT AUTO 0.6 % (0.0-1.0); EOSINOPHILS ABSOLUTE AUTO 0.1 K/mm3 (0.0-0.4); EOSINOPHILS PERCENT AUTO 0.9 % (0.0-6.0); IMMATURE GRAN ABSOLUTE AUTO 0.02 K/mm3 (0.00-0.05); IMMATURE GRAN PERCENT AUTO 0.3 % (0.0-0.4); LYMPHOCYTES ABSOLUTE AUTO 1.7 K/mm3 (1.0-4.8); LYMPHOCYTES PERCENT AUTO 22.2 % (24.0-44.0); MEAN PLATELET VOLUME 10.6 fl (9.4-12.4); MONOCYTES ABSOLUTE AUTO 0.6 K/mm3 (0.0-0.8); MONOCYTES PERCENT AUTO 8.0 % (0.0-8.0); NEUTROPHILS ABSOLUTE AUTO 5.3 K/mm3 (1.8-7.7); NEUTROPHILS PERCENT AUTO 68.0 % (41.0-71.0); NRBC ABSOLUTE 0.00 (0.00-0.02); NRBC PERCENT 0.0 % (0.0-0.2); PLATELET COUNT,PLT 194 K/mm3 (150-400); RED BLOOD CELL COUNT 3.71 M/mm3 (4.52-5.90); WHITE BLOOD CELL COUNT,WBC 7.74 K/mm3 (3.9-11.3)
[2025-01-10 06:05] LABS: A/G RATIO 1.0 (1-2); ALANINE AMINOTRANSFERASE,ALT 92.0 U/L (16-63); ASPARTATE AMNIOTRANSFERASE,AST 56.0 U/L (15-37); BILIRUBIN TOTAL 0.8 mg/dL (0.2-1.0); BLOOD UREA NITROGEN,BUN 9.0 mg/dL (7-18); CARBON DIOXIDE,CO2 29.0 mEq/L (21-32); CHLORIDE,CL 104.0 mEq/L (98-107); CREATININE 0.6 mg/dL (0.7-1.3); EST CRCL DRUG DOSING (CG) 176.75 mL/min; ESTIMATED GFR 132.0 mL/min (>60); GLUCOSE RANDOM 102.0 mg/dL (70-99); POTASSIUM,K 4.0 mEq/L (3.5-5.1); PROTEIN TOTAL,TP 6.1 g/dl (6.4-8.2); SODIUM,NA 140.0 mEq/L (136-145)
[2025-01-10 08:08] LABS: PHOSPHORUS 3.3 mg/dL (2.6-4.7)
[2025-01-10] MEDS: Magnesium Sulfate 2 GM/50 mL 2 GM in Premix Bag 1 BAG IV ONE (17:11)
[2025-01-11 05:29] LABS: BASOPHILS ABSOLUTE AUTO 0.1 K/mm3 (0.0-0.2); BASOPHILS PERCENT AUTO 1.0 % (0.0-1.0); EOSINOPHILS ABSOLUTE AUTO 0.1 K/mm3 (0.0-0.4); EOSINOPHILS PERCENT AUTO 1.7 % (0.0-6.0); IMMATURE GRAN ABSOLUTE AUTO 0.02 K/mm3 (0.00-0.05); IMMATURE GRAN PERCENT AUTO 0.3 % (0.0-0.4); LYMPHOCYTES ABSOLUTE AUTO 2.0 K/mm3 (1.0-4.8); LYMPHOCYTES PERCENT AUTO 31.3 % (24.0-44.0); MEAN PLATELET VOLUME 10.4 fl (9.4-12.4); MONOCYTES ABSOLUTE AUTO 0.6 K/mm3 (0.0-0.8); MONOCYTES PERCENT AUTO 8.9 % (0.0-8.0); NEUTROPHILS ABSOLUTE AUTO 3.6 K/mm3 (1.8-7.7); NEUTROPHILS PERCENT AUTO 56.8 % (41.0-71.0); NRBC ABSOLUTE 0.00 (0.00-0.02); NRBC PERCENT 0.0 % (0.0-0.2); PLATELET COUNT,PLT 197 K/mm3 (150-400); RED BLOOD CELL COUNT 4.14 M/mm3 (4.52-5.90); WHITE BLOOD CELL COUNT,WBC 6.29 K/mm3 (3.9-11.3)
[2025-01-11 05:52] LABS: A/G RATIO 0.9 (1-2); ALANINE AMINOTRANSFERASE,ALT 105.0 U/L (16-63); ASPARTATE AMNIOTRANSFERASE,AST 70.0 U/L (15-37); BILIRUBIN TOTAL 0.5 mg/dL (0.2-1.0); BLOOD UREA NITROGEN,BUN 7.0 mg/dL (7-18); CARBON DIOXIDE,CO2 27.0 mEq/L (21-32); CHLORIDE,CL 106.0 mEq/L (98-107); CREATININE 0.6 mg/dL (0.7-1.3); EST CRCL DRUG DOSING (CG) 176.75 mL/min; ESTIMATED GFR 132.0 mL/min (>60); GLUCOSE RANDOM 94.0 mg/dL (70-99); POTASSIUM,K 3.9 mEq/L (3.5-5.1); PROTEIN TOTAL,TP 6.8 g/dl (6.4-8.2); SODIUM,NA 140.0 mEq/L (136-145)
[2025-01-11 10:15] VITALS: BP 118/89; PULSE 77
== END 2025-01-11 09:58 | disposition home or self-care (01) | DRG 897 ==
LOC: JD.ED 12:45 → JD.ICU 17:17 → JD.MS 01-10 07:54
PROVIDERS: ADMIT Family Medicine; ATTEND Family Medicine
PROC: HZ2ZZZZ Detoxification Services for Substance Abuse Treatment (ICD-10-PCS; principal; 2025-01-09)
DX: F10.239 Alcohol dependence with withdrawal, unspecified (principal); R74.01 Elevation of levels of liver transaminase levels; E83.42 Hypomagnesemia; F41.9 Anxiety disorder, unspecified; F17.200 Nicotine dependence, unspecified, uncomplicated; F32.A Depression, unspecified; Z79.899 Other long term (current) drug therapy
CPT/HCPCS: 36415; 80053; 80306; 80307; 81001; 83735; 84100; 85025; 96365; 96372; 96375; 99285; 99285-25; A9270-GY; J2060; J2405; J3411; J3475; J7030

== ENCOUNTER 2025-01-19 13:12 | Emergency (ER) | payer MEDICAID ==
[2025-01-19 13:56] LABS: BASOPHILS ABSOLUTE AUTO 0.1 K/mm3 (0.0-0.2); BASOPHILS PERCENT AUTO 1.3 % (0.0-1.0); EOSINOPHILS ABSOLUTE AUTO 0.0 K/mm3 (0.0-0.4); EOSINOPHILS PERCENT AUTO 0.5 % (0.0-6.0); IMMATURE GRAN ABSOLUTE AUTO 0.01 K/mm3 (0.00-0.05); IMMATURE GRAN PERCENT AUTO 0.2 % (0.0-0.4); LYMPHOCYTES ABSOLUTE AUTO 1.1 K/mm3 (1.0-4.8); LYMPHOCYTES PERCENT AUTO 16.4 % (24.0-44.0); MEAN PLATELET VOLUME 9.4 fl (9.4-12.4); MONOCYTES ABSOLUTE AUTO 0.7 K/mm3 (0.0-0.8); MONOCYTES PERCENT AUTO 10.8 % (0.0-8.0); NEUTROPHILS ABSOLUTE AUTO 4.5 K/mm3 (1.8-7.7); NEUTROPHILS PERCENT AUTO 70.8 % (41.0-71.0); NRBC ABSOLUTE 0.00 (0.00-0.02); NRBC PERCENT 0.0 % (0.0-0.2); PLATELET COUNT,PLT 301 K/mm3 (150-400); RED BLOOD CELL COUNT 4.10 M/mm3 (4.52-5.90); WHITE BLOOD CELL COUNT,WBC 6.39 K/mm3 (3.9-11.3)
[2025-01-19] MEDS: Ondansetron 4 MG/2 ML SDV IVPUSH ONE (14:03)
[2025-01-19] MEDS: Sodium Chloride 0.9% 10 ML Syringe FLUSH PRN (14:06)
[2025-01-19] MEDS: LORazepam 2 MG/ML SDV IVPUSH ONE ×2 (14:07→16:45)
[2025-01-19 14:43] LABS: A/G RATIO 1.2 (1-2); ALANINE AMINOTRANSFERASE,ALT 107.0 U/L (16-63); ASPARTATE AMNIOTRANSFERASE,AST 62.0 U/L (15-37); BILIRUBIN TOTAL 0.4 mg/dL (0.2-1.0); BLOOD UREA NITROGEN,BUN 7.0 mg/dL (7-18); CARBON DIOXIDE,CO2 26.0 mEq/L (21-32); CHLORIDE,CL 101.0 mEq/L (98-107); CREATININE 0.8 mg/dL (0.7-1.3); EST CRCL DRUG DOSING (CG) 131.34 mL/min; ESTIMATED GFR 120.0 mL/min (>60); ETHANOL BLOOD MEDICAL 0.07 gm% (0.00); GLUCOSE RANDOM 95.0 mg/dL (70-99); POTASSIUM,K 3.5 mEq/L (3.5-5.1); PROTEIN TOTAL,TP 7.6 g/dl (6.4-8.2); SODIUM,NA 141.0 mEq/L (136-145); TSH 0.595 uIU/mL (0.358-3.74)
[2025-01-19 15:29] LABS: BUPRENORPHINE SCREEN,URINE NEGATIVE (CUTOFF=10); METHADONE SCREEN, URINE NEGATIVE (CUT0FF=200); METHAMPHETAMINES SCREEN, URINE NEGATIVE (CUTOFF=500); OXYCODONE SCREEN,URINE NEGATIVE (CUT0FF=100); THC SCREEN,URINE 20 NG/ML NEGATIVE (CUTOFF=50)
[2025-01-19 15:35] LABS: AMPHETAMINES SCREEN, URINE NEGATIVE (CUTOFF=500)
[2025-01-19 19:15] VITALS: BP 124/79; PULSE 63
== END 2025-01-19 19:16 ==
LOC: JD.ED 13:12
DX: Z02.89 Encounter for other administrative examinations (principal); F10.230 Alcohol dependence with withdrawal, uncomplicated; F17.200 Nicotine dependence, unspecified, uncomplicated; Z79.899 Other long term (current) drug therapy; Y90.0 Blood alcohol level of less than 20 mg/100 ml
CPT/HCPCS: 36415; 80053; 80143; 80179; 80306; 80307; 84443; 85025; 96361; 96374; 96375; 96376; 99284; J2060; J2405; J7030

== ENCOUNTER 2025-01-27 12:00 | Inpatient (IN) | payer MEDICAID ==
[2025-01-27] MEDS ORDERED: Sodium Chloride 0.9% 10 ML Syringe FLUSH PRN (16:26)
[2025-01-27 16:56] LABS: BASOPHILS ABSOLUTE AUTO 0.1 K/mm3 (0.0-0.2); BASOPHILS PERCENT AUTO 1.0 % (0.0-1.0); EOSINOPHILS ABSOLUTE AUTO 0.0 K/mm3 (0.0-0.4); EOSINOPHILS PERCENT AUTO 0.1 % (0.0-6.0); IMMATURE GRAN ABSOLUTE AUTO 0.02 K/mm3 (0.00-0.05); IMMATURE GRAN PERCENT AUTO 0.3 % (0.0-0.4); LYMPHOCYTES ABSOLUTE AUTO 1.5 K/mm3 (1.0-4.8); LYMPHOCYTES PERCENT AUTO 22.5 % (24.0-44.0); MEAN PLATELET VOLUME 9.6 fl (9.4-12.4); MONOCYTES ABSOLUTE AUTO 0.8 K/mm3 (0.0-0.8); MONOCYTES PERCENT AUTO 11.5 % (0.0-8.0); NEUTROPHILS ABSOLUTE AUTO 4.4 K/mm3 (1.8-7.7); NEUTROPHILS PERCENT AUTO 64.6 % (41.0-71.0); NRBC ABSOLUTE 0.00 (0.00-0.02); NRBC PERCENT 0.0 % (0.0-0.2); PLATELET COUNT,PLT 276 K/mm3 (150-400); RED BLOOD CELL COUNT 4.23 M/mm3 (4.52-5.90); WHITE BLOOD CELL COUNT,WBC 6.80 K/mm3 (3.9-11.3)
[2025-01-27 17:15] LABS: A/G RATIO 1.1 (1-2); ALANINE AMINOTRANSFERASE,ALT 91.0 U/L (16-63); ASPARTATE AMNIOTRANSFERASE,AST 53.0 U/L (15-37); BILIRUBIN TOTAL 0.9 mg/dL (0.2-1.0); BLOOD UREA NITROGEN,BUN 15.0 mg/dL (7-18); CARBON DIOXIDE,CO2 29.0 mEq/L (21-32); CHLORIDE,CL 98.0 mEq/L (98-107); CREATININE 0.8 mg/dL (0.7-1.3); EST CRCL DRUG DOSING (CG) 131.34 mL/min; ESTIMATED GFR 120.0 mL/min (>60); GLUCOSE RANDOM 85.0 mg/dL (70-99); POTASSIUM,K 3.5 mEq/L (3.5-5.1); PROTEIN TOTAL,TP 7.9 g/dl (6.4-8.2); SODIUM,NA 138.0 mEq/L (136-145)
[2025-01-27 17:20] LABS: ETHANOL BLOOD MEDICAL 0.0 gm% (0.00)
[2025-01-27] MEDS: LORazepam 2 MG/ML SDV IVPUSH ONE (17:28)
[2025-01-27] MEDS: Thiamine 200 MG/2 ML MDV IM ONE (17:29)
[2025-01-27] MEDS: Ondansetron 4 MG/2 ML SDV IVPUSH ONE (17:29)
[2025-01-27 18:44] LABS: APPEARANCE,URINE CLEAR (Clear); GLUCOSE,URINE NEGATIVE (Negative); OCCULT BLOOD,URINE NEGATIVE (Negative)
[2025-01-27 19:01] LABS: BUPRENORPHINE SCREEN,URINE NEGATIVE (CUTOFF=10); METHADONE SCREEN, URINE NEGATIVE (CUT0FF=200); METHAMPHETAMINES SCREEN, URINE NEGATIVE (CUTOFF=500); OXYCODONE SCREEN,URINE NEGATIVE (CUT0FF=100); THC SCREEN,URINE 20 NG/ML NEGATIVE (CUTOFF=50)
[2025-01-27 19:06] LABS: AMPHETAMINES SCREEN, URINE NEGATIVE (CUTOFF=500)
[2025-01-27 19:36] LABS: EPITHELIAL CELLS,URINE NOT SEEN /hpf (0-5)
[2025-01-27] MEDS ORDERED: LORazepam 2 MG/ML SDV IV PRN (21:31)
[2025-01-27] MEDS ORDERED: Ondansetron 4 MG/2 ML SDV IVPUSH PRN (21:32)
[2025-01-27] MEDS: Magnesium Sulf/Wat 4 GM/50 mL 4 GM in Premix Bag 1 BAG IV ONE (21:59)
[2025-01-27] MEDS: LORazepam 2 MG/ML SDV IV PRN (22:00)
[2025-01-28 05:45] LABS: BASOPHILS ABSOLUTE AUTO 0.0 K/mm3 (0.0-0.2); BASOPHILS PERCENT AUTO 0.7 % (0.0-1.0); EOSINOPHILS ABSOLUTE AUTO 0.1 K/mm3 (0.0-0.4); EOSINOPHILS PERCENT AUTO 1.1 % (0.0-6.0); IMMATURE GRAN ABSOLUTE AUTO 0.01 K/mm3 (0.00-0.05); IMMATURE GRAN PERCENT AUTO 0.2 % (0.0-0.4); LYMPHOCYTES ABSOLUTE AUTO 2.1 K/mm3 (1.0-4.8); LYMPHOCYTES PERCENT AUTO 38.1 % (24.0-44.0); MEAN PLATELET VOLUME 10.5 fl (9.4-12.4); MONOCYTES ABSOLUTE AUTO 0.9 K/mm3 (0.0-0.8); MONOCYTES PERCENT AUTO 16.0 % (0.0-8.0); NEUTROPHILS ABSOLUTE AUTO 2.4 K/mm3 (1.8-7.7); NEUTROPHILS PERCENT AUTO 43.9 % (41.0-71.0); NRBC ABSOLUTE 0.00 (0.00-0.02); NRBC PERCENT 0.0 % (0.0-0.2); PLATELET COUNT,PLT 235 K/mm3 (150-400); RED BLOOD CELL COUNT 3.89 M/mm3 (4.52-5.90); WHITE BLOOD CELL COUNT,WBC 5.38 K/mm3 (3.9-11.3)
[2025-01-28 06:00] LABS: A/G RATIO 1.0 (1-2); ALANINE AMINOTRANSFERASE,ALT 69.0 U/L (16-63); ASPARTATE AMNIOTRANSFERASE,AST 38.0 U/L (15-37); BILIRUBIN TOTAL 0.8 mg/dL (0.2-1.0); BLOOD UREA NITROGEN,BUN 12.0 mg/dL (7-18); CARBON DIOXIDE,CO2 29.0 mEq/L (21-32); CHLORIDE,CL 105.0 mEq/L (98-107); CREATININE 0.8 mg/dL (0.7-1.3); EST CRCL DRUG DOSING (CG) 131.34 mL/min; ESTIMATED GFR 120.0 mL/min (>60); GLUCOSE RANDOM 98.0 mg/dL (70-99); POTASSIUM,K 3.9 mEq/L (3.5-5.1); PROTEIN TOTAL,TP 6.4 g/dl (6.4-8.2); SODIUM,NA 141.0 mEq/L (136-145)
[2025-01-29 09:59] VITALS: BP 120/74; PULSE 75
== END 2025-01-29 08:11 | DRG 897 ==
LOC: JD.ED 12:00 → JD.ICU 20:47
PROVIDERS: ADMIT Family Medicine; ATTEND Family Medicine
PROC: HZ2ZZZZ Detoxification Services for Substance Abuse Treatment (ICD-10-PCS; principal; 2025-01-27)
DX: F10.230 Alcohol dependence with withdrawal, uncomplicated (principal); E83.42 Hypomagnesemia; F41.9 Anxiety disorder, unspecified; F32.A Depression, unspecified; E86.0 Dehydration; R74.01 Elevation of levels of liver transaminase levels; Z79.1 Long term (current) use of non-steroidal anti-inflammatories (NSAID); Z79.899 Other long term (current) drug therapy
CPT/HCPCS: 36415; 80053; 80306; 80307; 81001; 83735; 85025; 96372; 96374; 96375; 99223; 99232; 99239; 99285; 99285-25; A9270-GY; J2060; J2405; J3411; J3475; J7030